=== PATIENT | female | born 1940 | race Caucasian/White ===

== ENCOUNTER 2019-06-01 14:49 | Outpatient (CLI) | payer MEDICARE, SELFPAY ==
--- NOTE | 2019-06-01 14:53 | MM_ITS ---
WS: [id number] BILATERAL SCREENING DIGITAL MAMMOGRAM WITH CAD HISTORY: SCREENING COMPARISON: 03/14/2018, 08/21/2016 and 08/18/2013 Bilateral CC and MLO views submitted. Computer aided detection analyzed. Breast composition: There are scattered areas of fibroglandular density. No suspicious masses, microc alcifications or architectural distortion. Vascular calcifications and scattered benign calcification s. Parenchymal pattern is stable over multiple years. MM/[place] [id number] IMPRESSION: BI-RADS: 2-Benign FOLLOW UP: 1 Year Follow-up
== END 2019-06-01 14:50 | disposition home or self-care (01) ==
LOC: RADSHAW 14:49
PROVIDERS: Family Provider Family Medicine; PCP Family Medicine; Visit Provider Family Medicine
DX: Z12.31 Encounter for screening mammogram for malignant neoplasm of breast (principal)
CPT/HCPCS: 77067

== ENCOUNTER 2020-01-31 21:47 | Inpatient (IN) | payer MEDICARE, SELFPAY ==
[2020-01-31 22:05] VITALS: BP 123/74; PULSE 97; RESP 16; TEMP 36.3; O2SAT 99; BMI 24.0
[2020-01-31 22:39] VITALS: BP 139/71; PULSE 84; RESP 18; O2SAT 98
--- NOTE | 2020-01-31 22:39 | CTR_ITS ---
PROCEDURE INFORMATION: Exam: CT Abdomen And Pelvis Without Contrast Exam date and time: 01/31/2020 11:15 PM Age: 79 years old Clinical indication: Nausea; Abdominal pain; Generalized; Prior surgery; Surgery date: 6+ months; Surgery type: Hyst, gb, appy, bowel resection; Patient HX: C/O abd pain w n/v and fever TECHNIQUE: Imaging protocol: Computed tomography of the abdomen and pelvis without contrast. Radiation optimization: All CT scans at this facility use at least one of these dose optimization techniques: automated exposure control; mA and/or kV adjustment per patient size (includes targeted exams where dose is matched to clinical indication); or iterative reconstruction. COMPARISON: US Renal Kidney Structu* [id number] 12/04/2016 1:19 PM RADIATION DOSE METRICS: Total DLP (mGy-cm): 433.71 FINDINGS: Liver: Calcified hepatic granulomatous change. Fatty lumbar hernia on the right. Midline ventral hernia with wide neck. Gallbladder and bile ducts: Cholecystectomy. Pancreas: Normal. No ductal dilation. Spleen: Calcified splenic granulomatous change noted. Adrenals: Normal. No mass. Kidneys and ureters: Normal. No hydronephrosis. Stomach and bowel: Small bowel is dilated to the level of anastomosis with colon at right mid abdomen. There is a question of in thickening of the wall of the distal most portions of small bowel near the anastomosis site. Appendix: No evidence of appendicitis. Intraperitoneal space: Unremarkable. No free air. No significant fluid collection. Vasculature: Vascular calcifications are noted. No abdominal aortic aneurysm. Lymph nodes: Unremarkable. No enlarged lymph nodes. Urinary bladder: Unremarkable as visualized. Reproductive: Unremarkable as visualized. Bones/joints: No acute fracture. Soft tissues: See Liver finding. CT/CT abdomen pelvis con [id number] IMPRESSION: Small-bowel obstruction . Question wall thickening at distal-most portions of small bowel may relate to passive congestion or enteritis. Radiation Dose CTDIVOL = (mGy): DLP = 433.71 (mGy-cm)
[2020-01-31] MEDS: fentaNYL 50 mcg/mL INJ 2mL IVP (23:13)
[2020-01-31] MEDS: ondansetron 2 mg/ML SDV 2 mL 4 MG IVP (23:14)
[2020-01-31] MEDS: sodium chloride 0.9% 1,000 ML 999 ML IV (23:15)
[2020-01-31 23:18] LABS: Basophils # 0.1 10^3/uL (0.0-0.1); Basophils % 0.5 %; Eosinophils % 0.2 %; Hematocrit 41.1 % (37.0-47.0); Hemoglobin 13.1 g/dL (11.5-15.3); Lymphocytes % 9.4 %; Mean Corpuscular HGB Conc 31.9 g/dL (30.0-36.0); Mean Corpuscular Hemoglobin 28.5 pg (28.0-34.0); Mean Corpuscular Volume 89.5 fL (81-99); Mean Platelet Volume 8.9 fL (7.4-10.4); Monocytes # 0.7 10^3/uL (0.2-0.9); Monocytes % 6.9 %; Neutrophils # 8.61 10^3/uL (1.8-7.7); Neutrophils % 82.7 %; Nucleated Red Blood Cells % 0 %; Platelet Count 287 10^3/cmm (130-400); Red Blood Count 4.59 10^6/uL (4.1-5.3); Red Cell Distribution Width 14.5 % (12.1-15.1); White Blood Count 10.4 10^3/uL (4.0-10.0)
[2020-01-31 23:37] LABS: Lactate (Lactic Acid level) 1.6 mmol/L (0.5-2.2)
[2020-01-31 23:38] LABS: Alanine Aminotransferase 20 U/L (0-33); Albumin Level 4.4 g/dL (3.5-5.2); Alkaline Phosphatase 78 IU/L (35-105); Blood Urea Nitrogen 18 mg/dL (8-23); C Reactive Protein 10.9 mg/L (0.0-4.9); Calcium 9.2 mg/dL (8.5-10.5); Carbon Dioxide 20 mmol/L (22-29); Chloride 102 mmol/L (98-107); Globulin 3.7 g/dL (1.3-4.6); Glucose 136 mg/dL (65-115); Lipase 23 U/L (13-60); Osmolality Calculated 286 mOsm/kg (285-295); Sodium 136 mmol/L (136-145); Total Bilirubin 0.7 mg/dL (0.15-1.2); Total Protein 8.1 g/dL (6.6-8.7)
[2020-01-31 23:39] VITALS: BP 130/72; PULSE 98; RESP 18; O2SAT 99
--- NOTE | 2020-01-31 23:44 | ED_ITS ---
HPI - Abdominal Pain General: Chief Complaint: Abdominal Pain Stated Complaint: fever/vomiting Time Seen by Provider: 01/31/20 22:23 History of Present Illness: HPI narrative: 79-year-old female presenting with anterior abdominal pain/pelvic pain this evening. He is vomited several times in the past 24 hours. She is not had any blood in the stool or vomitus. No real increased diarrhea. She has a history of Crohn's disease, and is status post hemicolectomy. No fever. MD elicited complaint: abdominal pain Pertinent past history: other Onset (ago): hour(s) Pain Consistency: constant Location: Suprapubic Severity: moderate Quality: stabbing and aching Migration to: no migration Exacerbating factors: movement Relieving factors: nothing Associated Symptoms: Reports GI cramping and vomiting; Denies chills, diarrhea, fever(s), hematochezia, hematuria and hematemesis Review of Systems Const: Denies: fever(s) or chills Eyes: Denies: change in vision or blurry vision ENMT: Denies: swelling of lips/tongue, bleeding gums, epistaxis or sinus pain Card: Denies: chest pain, palpitations, irregular heart rhythm or edema Resp: Denies: dyspnea, productive cough, non-productive cough or wheezing GI: Reports: vomiting and GI cramping; Denies: hematemesis, diarrhea or hematochezia : Denies: hematuria Musc: Denies: back pain or joint warmth Skin/Breast: Denies: rash or pruritus Neuro: Denies: headache(s), dizziness or vertigo Psych: Denies: anxiety PFSH ED PFSH: Medical History Colostomy present Crohn's disease Degenerative arthritis Depression Hypothyroidism Inflammatory bowel disease Injury of superior mesenteric vein Status post repair during cecum ectomy and ileostomy placement with transverse mucous fistula Perforation of cecum Pseudomembranous colitis S/P ORIF (open reduction internal fixation) fracture Left arm fracture Thrombocytosis Surgical History H/O exploratory laparotomy H/O right hemicolectomy Right hemicolectomy with ileostomy distal colon mucous fistula H/O: hysterectomy History of appendectomy History of bowel resection Family History Other CAD (coronary artery disease) Stroke Social History Smoking and tobacco status: former smoker Quit status (tobacco): has quit using tobacco Former quit date comment: Quit 1999 Alcohol intake: never Substance/Drug Use: never Household members: spouse Housing: House Current occupational status: retired 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 Physical Exam Const: GENERAL APPEARANCE: well developed ORIENTATION/CONSCIOUSNESS: Yes oriented to person, Yes oriented to place and Yes oriented to time HENMT: COMMON NORMALS: normocephalic, external ears normal and Normal external nose present HEAD & SCALP: normocephalic FACE & SINUS: normal facial exam NOSE: Normal external nose present and No nasal discharge present EXTERNAL EAR: Yes external ears normal Eye: COMMON NORMALS: Equal, round and reactive pupils present, EOMs intact bilaterally and conjunctivae normal EYELID: eyelids normal CONJUNCTIVA: Yes conjunctivae normal PUPIL: Yes Equal, round and reactive pupils present Neck/C-Spine: GENERAL: No tracheal deviation Chest: COMMONS NORMALS: normal inspection of the chest CHEST: No tenderness Resp: COMMON NORMALS: clear to auscultation bilaterally EFFORT & INSPECTION: No tachypneic, No respiratory distress, No retractions, No uses accessory muscles and No tracheal deviation AUSCULTATION: clear to auscultation bilaterally, no rhonchi, no wheezes and lung sounds not diminished Cardio: COMMON NORMALS: regular rate and regular rhythm RATE: regular rate RHYTHM: regular rhythm HEART SOUNDS: no murmurs PERIPHERAL PULSES: radial pulses present GI: INSPECTION: No abdominal distension AUSCULTATION: No Hyperactive bowel sounds present and No Hypoactive bowel sounds present PALPATION: Yes Tenderness to palpation present (GI) (Diffuse), No Guarding due to palpation present (GI) and No Rigid due to palpation PERCUSSION: no dullness to percussion and no tympanic to percussion Neuro: SENSORIUM/ORIENTATION: Yes oriented to person, Yes oriented to place and Yes oriented to time Psych: COMMON NORMALS: mental status grossly normal Skin: COMMON NORMALS: no rashes or lesions noted GENERAL SKIN EXAM: no rashes or lesions noted Course Consultations: Consultation #1: [email or web address] Vital Signs: Vital signs: Vital Signs Temperature 97.3 F L 01/31/20 22:05 Pulse Rate 104 H 02/01/20 01:54 Respiratory Rate 20 H 02/01/20 01:54 Blood Pressure 125/74 02/01/20 01:54 Pulse Oximetry 92 02/01/20 01:54 MDM - Abdominal Pain MDM Narrative: Medical decision making narrative: 79-year-old lady with a history of Crohn's disease. She has a small bowel obstruction by CT. Her white blood cell count is 10.4. Bicarbonate level is 20. Creatinine is 1.2. She has not vomited since here. Her pain is under better control. An NG tube is placed. Spoke with hospitalist, they agree to admit. Lab Data: Labs: Lab Results 01/31/20 01/31/20 01/31/20 Range/Units 22:45 22:45 23:08 WBC 10.4 H (4.0-10.0) 10^3/ uL RBC 4.59 (4.1-5.3) 10^6/u L Hgb 13.1 (11.5-15.3) g/dL Hct 41.1 (37.0-47.0) % MCV 89.5 (81-99) fL MCH 28.5 (28.0-34.0) pg MCHC 31.9 (30.0-36.0) g/dL RDW 14.5 (12.1-15.1) % Plt Count 287 (130-400) 10^3/c mm MPV 8.9 (7.4-10.4) fL Neut % (Auto) 82.7 % Lymph % (Auto) 9.4 % [place] % (Auto) 6.9 % Eos % (Auto) 0.2 % Baso % (Auto) 0.5 % Neut # (Auto) 8.61 H (1.8-7.7) 10^3/u L Lymph # (Auto) 1.0 (0.8-4.8) 10^3/u L [place] # (Auto) 0.7 (0.2-0.9) 10^3/u L Eos # (Auto) 0.0 (0.0-0.8) 10^3/u L Baso # (Auto) 0.1 (0.0-0.1) 10^3/u L Nucleated RBC % (a uto) 0 % Nucleated RBCs # 0.0 /100WBC Sodium 136 (136-145) mmol/L Potassium 5.1 (3.5-5.1) mmol/L Chloride 102 (98-107) mmol/L Carbon Dioxide 20 L (22-29) mmol/L Anion Gap 19.1 H (5-19) BUN 18 (8-23) mg/dL Creatinine 1.2 H (0.5-0.9) mg/dL GFR Calculation Not Reportable Glucose 136 H (65-115) mg/dL Calculated Osmolal ity 286 (285-295) mOsm/k g Lactate 1.6 (0.5-2.2) mmol/L Calcium 9.2 (8.5-10.5) mg/dL Total Bilirubin 0.7 (0.15-1.2) mg/dL AST 25 (0-32) U/L ALT 20 (0-33) U/L Alkaline Phosphata se 78 (35-105) IU/L C-Reactive Protein 10.9 H (0.0-4.9) mg/L Total Protein 8.1 (6.6-8.7) g/dL Albumin 4.4 (3.5-5.2) g/dL Globulin 3.7 (1.3-4.6) g/dL Lipase 23 (13-60) U/L Discharge Plan Discharge Patient Disposition: Admitted As Inpatient Admit Provider: Tariq Vazquez Clinical Impression: SBO (small bowel obstruction) Condition: Stable Coding Level of Care Code ED Biometrics Specialist for Chg Fwd Exam Comprehensive
[2020-01-31 23:48] LABS: Anion Gap 19.1 (5-19); Aspartate Amino Transferase 25 U/L (0-32); Potassium 5.1 mmol/L (3.5-5.1)
[2020-02-01] VITALS (12 sets, daily range): BP systolic 98–167; BP diastolic 56–83; PULSE 64–104; RESP 16–24; TEMP 36.5–36.9; O2SAT 92–100
--- NOTE | 2020-02-01 01:10 | P.HP_ITS ---
Providers/Chief Complaint Primary Care Provider: Dereje Bah MD Chief Complaint: fever/vomiting History of Present Illness Esha Manning is a 79 year old female who has history of right hemicolectomy status post cecal perforation due to Crohn's disease flareup 2009 currently on Remicade came in with intractable nausea vomiting. Patient symptoms started yesterday around 4 PM with bilious vomiting, she has been having bilious emesis almost every hour until she arrived in the hospital, she did not experience any fever, diarrhea, blood in stool, dysuria, chest pain or shortness of breath. She is due for her Remicade tomorrow. She gets Remicade infusions at her home. She never had any bowel obstruction in last 10 years, previous colonoscopy did not reveal any malignant changes. Diagnosis in the ER revealed sepsis, CT abdomen revealed small bowel obstruction, enteritis/ileitis I have started her on IV steroids, Zosyn and fluids, NG tube has been placed which drained 60 cc of bilious content in the ER on low intermittent suction. High CRP, WENDY Review of Systems 2 Const: Reports: chills, body aches and fatigue; Denies: fever(s) Eyes: Denies: change in vision ENMT: Denies: throat pain Card: Denies: chest pain Resp: Denies: dyspnea GI: Reports: abdominal pain, nausea and vomiting : Denies: flank pain Musc: Denies: joint redness Skin/Breast: Denies: rash Neuro: Denies: headache(s) Psych: Denies: anxiety Endo: Denies: polyuria Jovanni/Lymph: Denies: easy bruising All/Imm: Denies: urticaria Medications/Allergies Allergies Allergy/AdvReac Type Severity Reaction Status Date / Time hydrocodone Allergy Unknown Verified 01/31/20 22:09 morphine Allergy Unknown Verified 01/31/20 22:09 Sulfa (Sulfonamide Allergy Unknown Verified 01/31/20 22:09 Antibiotics) PFSH Acute PFSH: Medical History Colostomy present Crohn's disease Degenerative arthritis Depression Hypothyroidism Inflammatory bowel disease Injury of superior mesenteric vein Status post repair during cecum ectomy and ileostomy placement with transverse mucous fistula Perforation of cecum Pseudomembranous colitis S/P ORIF (open reduction internal fixation) fracture Left arm fracture Thrombocytosis Surgical History H/O exploratory laparotomy H/O right hemicolectomy Right hemicolectomy with ileostomy distal colon mucous fistula H/O: hysterectomy History of appendectomy History of bowel resection Family History Other CAD (coronary artery disease) Stroke Social History Smoking and tobacco status: former smoker Quit status (tobacco): has quit using tobacco Former quit date comment: Quit 1999 Alcohol intake: never Substance/Drug Use: never Household members: spouse Housing: House Current occupational status: retired 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 Vitals/I&O/Wt Last Vital Signs Temp 97.3 F L 01/31/20 22:05 Pulse 84 01/31/20 22:39 Resp 18 01/31/20 22:39 BP 139/71 01/31/20 22:39 Pulse Ox 98 01/31/20 22:39 Weight last 48 hrs Weight 63.503 kg Physical Exam Narrative: EXAM NARRATIVE: elderly female Currently in distress because of abdominal pain NG tube has been placed which is draining bilious content 60 cc in the jar EOMI, PERRLA No neurological deficit Abdomen soft, bowel sounds hyperactive, nontender, no signs of peritonitis, no rigidity Lower extremity no edema gangrene ulcer S1, S2 tachycardia No active respiratory distress Distress due to pain Awake alert oriented x3, GCS 15 Data : 01/31/20 22:45 01/31/20 22:45 A&P Assessment and plan (1) SBO (small bowel obstruction): Status: Acute (2) Sepsis: Status: Acute (3) Exacerbation of Crohn's disease: Status: Acute Additional A&P Information Acute flare of Crohn's disease Sepsis criteria met with tachycardia, tachypnea, leukocytosis, high CRP, CT abdomen revealed enteritis Her next Remicade dose is due tomorrow Considering high CRP and small bowel obstruction, she might need higher dosage of Remicade for remission of Crohn's disease, kindly follow-up with her bureau chief if we need to scale up her therapy I would start IV steroids along Zosyn considering history of perforation of cecum with Crohn disease flareup in 2009 Patient is denying any history of fistula or malignancies N.p.o., NG to low intermittent suction We will consult general surgery in the morning in case she fails conservative management Hypothyroidism: Holding levothyroxine for now WENDY secondary to dehydration Dehydration secondary to emesis Anticipating improvement with fluid resuscitation, baseline creatinine seems to be normal Patient is denying dysuria, no history of fistula Full code DVT prophylaxis: Would avoid anticoagulant in case she would require surgical intervention N.p.o. Attestations Medical Necessity Statement*: Anticipating stay in the hospital cross more than 2 midnights continued management for acute flare of Crohn's disease with SBO and enteritis Time Spent in Patient Care: (>than 50% of time spent in counselling and/or direct pt care on unit) . 50mins Coding Level of Care Code Acute Managed Care Manager for Chg Fwd Diagnoses SBO (small bowel obstruction) K56.609 Sepsis A41.9 Exacerbation of Crohn's disease K50.90
[2020-02-01] MEDS: cetacaine Spray 5 gm Can 1 SPRAY TOPICAL (01:35)
--- NOTE | 2020-02-01 01:45 | PC.NURSE ---
18 fr NG tube placed Lt nare placement checked per auscaltation secured with venagard-to Low intermittent suction
--- NOTE | 2020-02-01 01:58 | XR_ITS ---
WS: [id number] PORTABLE CHEST HISTORY: NG placement COMPARISON: 11/21/2015 Interval insertion of a nasogastric tube with tip extending below the GE junction. Mild pulmonary hyperexpansion. No pneumonia. No pleural effusion or pneumothorax. Cardiac size: Normal. Mediastinum/Aorta: Mild atherosclerosis aorta. Prior ORIF proximal LEFT humerus. Osteopenia. XR/XR chest 1V portable [id number] IMPRESSION: 1. Satisfactory placement of a nasogastric tube. 2. No pneumonia.
[2020-02-01] MEDS: HYDROmorphone 1 mg/mL INJ 1 mL 0.5 MG IVP ×3 (02:42→17:32)
[2020-02-01] MEDS: dextrose 5%-sod chloride 0.45% 1,000 ML 75 ML IV ×2 (04:34→16:52)
[2020-02-01] MEDS: piperacillin-tazobactam 3.375 GM in sodium chloride 0.9% (plus) 50 ML IV (04:35)
[2020-02-01 05:42] LABS: Basophils % 0.4 %; Hemoglobin 12.2 g/dL (11.5-15.3); Lymphocytes % 9.9 %; Mean Corpuscular HGB Conc 31.3 g/dL (30.0-36.0); Mean Corpuscular Hemoglobin 28.8 pg (28.0-34.0); Mean Corpuscular Volume 92.2 fL (81-99); Monocytes # 0.7 10^3/uL (0.2-0.9); Monocytes % 6.7 %; Neutrophils % 82.6 %; Nucleated Red Blood Cells % 0 %; Platelet Count 252 10^3/cmm (130-400); Red Blood Count 4.23 10^6/uL (4.1-5.3); Red Cell Distribution Width 14.6 % (12.1-15.1); White Blood Count 9.9 10^3/uL (4.0-10.0)
[2020-02-01 05:58] LABS: Alanine Aminotransferase 16 U/L (0-33); Albumin Level 3.7 g/dL (3.5-5.2); Alkaline Phosphatase 71 IU/L (35-105); Anion Gap 18.2 (5-19); Aspartate Amino Transferase 20 U/L (0-32); Blood Urea Nitrogen 18 mg/dL (8-23); Calcium 8.7 mg/dL (8.5-10.5); Carbon Dioxide 18 mmol/L (22-29); Chloride 105 mmol/L (98-107); Globulin 3.7 g/dL (1.3-4.6); Glucose 154 mg/dL (65-115); Osmolality Calculated 289 mOsm/kg (285-295); Potassium 4.2 mmol/L (3.5-5.1); Sodium 137 mmol/L (136-145); Total Bilirubin 0.7 mg/dL (0.15-1.2); Total Protein 7.4 g/dL (6.6-8.7)
--- NOTE | 2020-02-01 08:03 | P.CONIM_ITS ---
Providers/Reason For Consult Consulting Physican/Specialty*: Saw Ennis MD Reason for Consult*: Bowel obstruction associated with exacerbation of Crohn's disease Attending Physician: Lori Reddy MD Primary Care Provider: Dereje Bah MD History of Present Illness History of Present Illness Chief Complaint: Vomiting History of present illness: This is a pleasant 79 years old female patient with well-known history of Crohn's disease, undergone open right hemicolectomy before 10 years ago and she has been on steroids before. Patient was started on Remicade about 1 year per her part time receptionist in [facility]. She has been receiving it every 5 to 7 weeks and she is due for her dose today. Patient reports that she started to having vomiting yesterday associated with colicky abdominal pain diffuse in nature without being referred.Associated with chills but no reported fevers and she did have a bout of nonbloody loose stool and passing gas yesterday evening. Patient was admitted to the hospitalist service and further evaluation was done including blood work and a CT scan patient had an NG tube placed for decompression and it seems overall patient is feeling better as of now and she denies any abdominal pain on morning rounds. General surgery was consulted for further evaluation. CT scan of the abdomen pelvis showed: FINDINGS: Liver: Calcified hepatic granulomatous change. Fatty lumbar hernia on the right. Midline ventral hernia with wide neck. Gallbladder and bile ducts: Cholecystectomy. Pancreas: Normal. No ductal dilation. Spleen: Calcified splenic granulomatous change noted. Adrenals: Normal. No mass. Kidneys and ureters: Normal. No hydronephrosis. Stomach and bowel: Small bowel is dilated to the level of anastomosis with colon at right mid abdomen. There is a question of in thickening of the wall of the distal most portions of small bowel near the anastomosis site. Appendix: No evidence of appendicitis. Intraperitoneal space: Unremarkable. No free air. No significant fluid collection. Vasculature: Vascular calcifications are noted. No abdominal aortic aneurysm. Lymph nodes: Unremarkable. No enlarged lymph nodes. Urinary bladder: Unremarkable as visualized. Reproductive: Unremarkable as visualized. Bones/joints: No acute fracture. Soft tissues: See Liver finding. CT/CT abdomen pelvis wo con [id number] IMPRESSION: Small-bowel obstruction . Question wall thickening at distal-most portions of small bowel may relate to passive congestion or enteritis. Review of Systems General: Reports: 10 or more systems reviewed and unremarkable except in HPI and below Meds/Allergies Home Medications and Allergies Home Medications Medication Instructions Recorded Confirmed Last Taken Type colestipol 1 g PO BID 02/01/20 02/01/20 1 Day Ago History ~01/31/20 famotidine 20 mg PO BID 02/01/20 02/01/20 1 Day Ago History ~01/31/20 gabapentin 100 mg PO BID 02/01/20 02/01/20 1 Day Ago History ~01/31/20 levothyroxine [Synthroid] 150 mcg PO DAILY 02/01/20 02/01/20 1 Day Ago History ~01/31/20 metoprolol succinate 25 mg PO BID 02/01/20 02/01/20 1 Day Ago History ~01/31/20 Allergies Allergy/AdvReac Type Severity Reaction Status Date / Time hydrocodone Allergy Unknown Verified 02/01/20 08:14 morphine Allergy Unknown Verified 02/01/20 08:14 Sulfa (Sulfonamide Allergy Unknown Verified 02/01/20 08:14 Antibiotics) Current Medications Current Medications Generic Name Dose Route Start Last Admin Trade Name Freq PRN Reason Stop Dose Admin Dextrose/Sodium Chloride 1,000 mls @ 75 mls/hr 02/01/20 03:15 02/01/20 04:34 Dextrose 5%-Sod Chloride 0.45% IV 75 mls/hr .[id number] MALIA Administration Methylprednisolone Sodium Succinate 40 mg 02/01/20 03:15 02/01/20 04:35 Solu-Medrol IVP 40 mg Q12H MALIA Administration PFSH Acute PFSH: Medical History Colostomy present Crohn's disease Degenerative arthritis Depression Hypothyroidism Inflammatory bowel disease Injury of superior mesenteric vein Status post repair during cecum ectomy and ileostomy placement with transverse mucous fistula Perforation of cecum Pseudomembranous colitis S/P ORIF (open reduction internal fixation) fracture Left arm fracture Thrombocytosis Surgical History H/O exploratory laparotomy H/O right hemicolectomy Right hemicolectomy with ileostomy distal colon mucous fistula H/O: hysterectomy History of appendectomy History of bowel resection Family History Other CAD (coronary artery disease) Stroke Social History Smoking and tobacco status: former smoker Quit status (tobacco): has quit using tobacco Former quit date comment: Quit 1999 Alcohol intake: never Substance/Drug Use: never Household members: spouse Housing: House Current occupational status: retired 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 Vitals/I&O/Wt Last Vital Signs Temp 98.3 F 02/01/20 07:42 Pulse 64 02/01/20 07:42 Resp 20 H 02/01/20 07:42 BP 130/76 02/01/20 07:42 Pulse Ox 95 02/01/20 07:42 01/31/20 02/01/20 02/01/20 22:59 06:59 14:59 Output Total 325 / 325 Balance -325 / -325 Weight last 48 hrs Weight 140 lb Physical Exam Narrative: EXAM NARRATIVE: Patient is conscious alert oriented X3 BMI 24 Head and neck examination PERRLA no masses no cervical lymphadenopathy no jaundice NG in place with gastric /bilious content Cardiac examination audible S1-S2 no murmurs no gallops no arrhythmias Chest is clear bilateral,abscence of Rhonchi or wheezes,no surgical emphysema Abdomen nontender nondistended soft no organomegaly guarding or rigidity/no signs of peritonitis Midline scar A&P Assessment and plan (1) SBO (small bowel obstruction): After thorough history physical examination and reviewing the chart and images with my personal interpretation of the CT scan images likely the patient have some sort of narrowing towards the ileocolic anastomosis yet it is not that distinct likely more of inflammatory process being active But no actual transition point is appreciated on the scan. Also on the CT scan the patient does have loaded colon with stools likely there is an underlying element of constipation. Continue NG to low intermittent wall suction Resume Remicade, advise to consult with patient's medical GI provider to keep him in the loop and coordinate care. I Would recommend ciprofloxacin and Flagyl instead of Zosyn No surgical intervention is required at this point, continue conservative measures. Repeated physical examination Assurance and education All questions have been answered and all concerns have been addressed to patient's satisfaction. Status: Acute Consult Attestations Medical Necessity Statement: Patient will require inpatient hospitalization with NG tube to low intermittent wall suction and repeated physical examination. Till patient restored soft bowel function Time Spent in Patient Care: (>than 50% of time spent in counselling and/or direct pt care on unit) . Coding Level of Care Code Acute Joinery Machinist for Chg Fwd Diagnoses SBO (small bowel obstruction) K56.609
[2020-02-01] MEDS: metroNIDAZOLE IV 500 MG/100 ML PREMIX 100 MG IV ×2 (08:38→16:39)
[2020-02-01] MEDS: ciprofloxacin 400 MG/200 ML PREMIX 200 MG IV ×2 (10:31→21:38)
[2020-02-01] MEDS: ondansetron 2 mg/ML SDV 2 mL 4 MG IVP (12:01)
--- NOTE | 2020-02-01 17:44 | PM.PN ---
Subjective Subjective: Interval history: Overnight labs and H& P reveiwed. Continues with NGT in place, no acute interim events Medications: Reviewed: Yes Vitals/I&O/Wt Last Vital Signs Temp 98.2 F 02/01/20 14:53 Pulse 81 02/01/20 14:53 Resp 20 H 02/01/20 14:53 BP 132/64 02/01/20 14:53 Pulse Ox 100 02/01/20 14:53 02/01/20 02/01/20 02/01/20 06:59 14:59 22:59 Intake Total 100 / 100 922.5 / 1022.5 Output Total 325 / 325 Balance -325 / -325 100 / 100 922.5 / 1022.5 Weight last 48 hrs Weight 63.503 kg Data : 02/01/20 05:01 02/01/20 05:01 A&P Assessment and plan (1) SBO (small bowel obstruction): Status: Acute (2) Sepsis: Status: Acute (3) Exacerbation of Crohn's disease: Status: Acute Additional A&P Information Patient has a h/o Crohn's disease Sepsis criteria met with tachycardia, tachypnea, leukocytosis, high CRP, CT abdomen revealed enteritis Her next Remicade dose was due today, will discuss with her GI physicians in [place] Continue IV steroids along Zosyn for now N.p.o., NG to low intermittent suction Appreciate gen/surg recommendations WENDY secondary to dehydration Dehydration secondary to emesis Anticipating improvement with fluid resuscitation, baseline creatinine seems to be normal Patient is denying dysuria, no history of fistula Full code DVT prophylaxis: Would avoid anticoagulant in case she would require surgical intervention N.p.o. Attestations Medical Necessity Statement*: SBO, awaiting improvement in bowel function Coding Level of Care Code Acute Heater Operator Helper for [facility] Fwd Diagnoses SBO (small bowel obstruction) K56.609 Sepsis A41.9 Exacerbation of Crohn's disease K50.90
[2020-02-02] MEDS: metroNIDAZOLE IV 500 MG/100 ML PREMIX 100 MG IV ×4 (00:03→23:31)
[2020-02-02 04:00] VITALS: BP 147/76; PULSE 81; RESP 18; TEMP 36.8; O2SAT 95
[2020-02-02 06:04] LABS: Basophils % 0.1 %; Hematocrit 36.9 % (37.0-47.0); Lymphocytes # 1.3 10^3/uL (0.8-4.8); Mean Corpuscular HGB Conc 32.5 g/dL (30.0-36.0); Mean Corpuscular Hemoglobin 28.9 pg (28.0-34.0); Mean Corpuscular Volume 88.9 fL (81-99); Mean Platelet Volume 9.2 fL (7.4-10.4); Monocytes # 0.6 10^3/uL (0.2-0.9); Monocytes % 7.9 %; Neutrophils # 5.62 10^3/uL (1.8-7.7); Neutrophils % 74.5 %; Nucleated Red Blood Cells % 0 %; Platelet Count 283 10^3/cmm (130-400); Red Blood Count 4.15 10^6/uL (4.1-5.3); Red Cell Distribution Width 14.4 % (12.1-15.1); White Blood Count 7.6 10^3/uL (4.0-10.0)
--- NOTE | 2020-02-02 06:16 | P.PN_ITS ---
Subjective Subjective: Interval history: Patient overall feels better and start to pass a lot of gas. NG output 300 mL over past 12 hours gastric content Overall patient denies abdominal pain Vitals/I&O/Wt Last Vital Signs Temp 98.3 F 02/02/20 04:00 Pulse 81 02/02/20 04:00 Resp 18 02/02/20 04:00 BP 147/76 02/02/20 04:00 Pulse Ox 95 02/02/20 04:00 02/01/20 02/01/20 02/02/20 14:59 22:59 06:59 Intake Total 300 / 300 1222.5 / 1522.5 100 / 1622.5 Output Total 100 / 100 350 / 450 Balance 300 / 300 1122.5 / 1422.5 -250 / 1172.5 Weight last 48 hrs Weight 140 lb Physical Exam Narrative: EXAM NARRATIVE: Patient is conscious alert oriented X3 BMI 24 Head and neck examination PERRLA no masses no cervical lymphadenopathy no jaundice NG in place gastric content Abdomen nontender nondistended soft no organomegaly guarding or rigidity/no signs of peritonitis Data : 02/03/20 04:54 02/03/20 04:54 A&P Assessment and plan (1) SBO (small bowel obstruction): Will administer glycerin suppositories and once patient have a bowel movement we will plan to clamp NG tube for 2 hours. And then will check r esiduals if less than 200 mL will DC NG and start the patient on clear liquid diet. Patient is responding to conservative measures. We will continue coordinating care with Repeated physical examination Assurance and education All questions have been answered and all concerns have been addressed to patient's satisfaction. Status: Acute Attestations Medical Necessity Statement*: Continue inpatient admission due to bowel obstruction Time Spent in Patient Care: (>than 50% of time spent in counselling and/or di rect pt care on unit) . Coding Level of Care Code Acute Molecular Technologist for [facility] Fwd Diagnoses SBO (small bowel obstruction) K56.609
[2020-02-02] MEDS: dextrose 5%-sod chloride 0.45% 1,000 ML 75 ML IV ×2 (06:22→21:10)
[2020-02-02] MEDS: glycerin adult supp 2 EACH PR (06:34)
[2020-02-02 06:39] LABS: Alanine Aminotransferase 17 U/L (0-33); Albumin Level 3.7 g/dL (3.5-5.2); Alkaline Phosphatase 68 IU/L (35-105); Anion Gap 15.9 (5-19); Aspartate Amino Transferase 18 U/L (0-32); Blood Urea Nitrogen 15 mg/dL (8-23); Calcium 8.3 mg/dL (8.5-10.5); Carbon Dioxide 24 mmol/L (22-29); Chloride 103 mmol/L (98-107); Globulin 3.5 g/dL (1.3-4.6); Glucose 151 mg/dL (65-115); Osmolality Calculated 292 mOsm/kg (285-295); Potassium 3.9 mmol/L (3.5-5.1); Sodium 139 mmol/L (136-145); Total Bilirubin 0.6 mg/dL (0.15-1.2); Total Protein 7.2 g/dL (6.6-8.7)
[2020-02-02 06:41] LABS: Creatinine Clr Calc Pharmacy 40.5527
[2020-02-02 07:49] VITALS: BP 162/80; PULSE 70; RESP 18; TEMP 36.8; O2SAT 94
[2020-02-02] MEDS: ciprofloxacin 400 MG/200 ML PREMIX 200 MG IV ×2 (10:18→21:09)
[2020-02-02] MEDS: ondansetron 2 mg/ML SDV 2 mL 4 MG IVP ×2 (11:21→17:07)
[2020-02-02 11:24] VITALS: BP 160/71; PULSE 74; RESP 16; TEMP 36.7; O2SAT 94
--- NOTE | 2020-02-02 14:22 | PC.NURSE ---
DR ORDER KRIDER 40MEQ, IT WAS HUNG AND PT THEN REQUESTED FOR IT TO BE DISCONTINUED, RN DID PT REQUESTED AND NOTIFIED . ORDERED LIDOCAINE AND PT STILL REFUSED KRIDER AFTER LIDOCAINE, DR NOTIFIED AND AWARE
[2020-02-02 15:20] VITALS: BP 170/68; PULSE 72; RESP 18; TEMP 36.9; O2SAT 95
--- NOTE | 2020-02-02 18:02 | PM.PN ---
Subjective Subjective: Interval history: clamping trial today for NGT, no acute overnight events Medications: Reviewed: Yes Vitals/I&O/Wt Last Vital Signs Temp 98.4 F 02/02/20 15:20 Pulse 72 02/02/20 15:20 Resp 18 02/02/20 15:20 BP 170/68 02/02/20 15:20 Pulse Ox 95 02/02/20 15:20 02/02/20 02/02/20 02/02/20 06:59 14:59 22:59 Intake Total 1100 / 2622.5 300 / 300 Output Total 350 / 450 300 / 300 Balance 750 / 2172.5 300 / 300 -300 / 0 Weight last 48 hrs Weight 63.503 kg Physical Exam Narrative: EXAM NARRATIVE: GEN: Awake, alert and oriented, no acute distress HEENT: NGT in place, clamped today CVS: S1S2 N RS: CTA B/L Abd: Soft, nt/nd , bs+ MANAGER FREELANCE: no focal neuro deficits Data : 02/02/20 05:12 02/02/20 05:12 A&P Assessment and plan (1) SBO (small bowel obstruction): Status: Acute (2) Sepsis: Status: Acute (3) Exacerbation of Crohn's disease: Status: Acute Additional A&P Information SBO Patient has a h/o Crohn's disease Sepsis criteria met with tachycardia, tachypnea, leukocytosis, high CRP, CT abdomen revealed enteritis Missed Remicade dose yesterday, was scheduled for outpatient Remicade with GI Continue IV steroid, reduce dose to q24h, will aim to discontinue abx if remains stable NGT clamped today resume home medications incl metoprolol, gabapentin Appreciate gen/surg recommendations Had BM today and passing flatus WENDY secondary to dehydration Dehydration secondary to emesis Anticipating improvement with fluid resuscitation, baseline creatinine seems to be normal Patient is denying dysuria, no history of fistula Full code DVT prophylaxis: start lovenox Attestations Medical Necessity Statement*: SBO, NGT clamped Coding Level of Care Code Acute Precision Aircraft Structure Assembler for [facility] Fw Diagnoses SBO (small bowel obstruction) K56.609 Sepsis A41.9 Exacerbation of Crohn's disease K50.90
[2020-02-02 20:00] VITALS: BP 154/84; PULSE 69; RESP 20; TEMP 37.1; O2SAT 92
[2020-02-02] MEDS: enoxaparin 40 mg/0.4 mL Syringe SUBCUT (23:42)
[2020-02-03] VITALS (7 sets, daily range): BP systolic 126–158; BP diastolic 71–83; PULSE 64–87; RESP 16–18; TEMP 36.3–37.1; O2SAT 91–97
[2020-02-03 05:11] LABS: Basophils % 0.1 %; Hematocrit 37.3 % (37.0-47.0); Hemoglobin 11.8 g/dL (11.5-15.3); Lymphocytes # 0.7 10^3/uL (0.8-4.8); Lymphocytes % 8.5 %; Mean Corpuscular HGB Conc 31.6 g/dL (30.0-36.0); Mean Corpuscular Hemoglobin 28.7 pg (28.0-34.0); Mean Corpuscular Volume 90.8 fL (81-99); Mean Platelet Volume 9.2 fL (7.4-10.4); Monocytes # 0.3 10^3/uL (0.2-0.9); Monocytes % 3.1 %; Neutrophils # 6.97 10^3/uL (1.8-7.7); Neutrophils % 87.1 %; Nucleated Red Blood Cells % 0 %; Platelet Count 259 10^3/cmm (130-400); Red Blood Count 4.11 10^6/uL (4.1-5.3); Red Cell Distribution Width 14.1 % (12.1-15.1)
[2020-02-03 05:33] LABS: Alanine Aminotransferase 16 U/L (0-33); Albumin Level 3.5 g/dL (3.5-5.2); Alkaline Phosphatase 58 IU/L (35-105); Chloride 98 mmol/L (98-107); Potassium 3.4 mmol/L (3.5-5.1); Sodium 140 mmol/L (136-145)
[2020-02-03 05:49] LABS: Anion Gap 15.4 (5-19); Aspartate Amino Transferase 20 U/L (0-32); Blood Urea Nitrogen 16 mg/dL (8-23); Calcium 8.1 mg/dL (8.5-10.5); Carbon Dioxide 30 mmol/L (22-29); Globulin 3.3 g/dL (1.3-4.6); Glucose 301 mg/dL (65-115); Osmolality Calculated 302 mOsm/kg (285-295); Total Bilirubin 0.5 mg/dL (0.15-1.2); Total Protein 6.8 g/dL (6.6-8.7)
--- NOTE | 2020-02-03 06:16 | XRR_ITS ---
PROCEDURE INFORMATION: Exam: XR Abdomen, 2 Views Exam date and time: 02/03/2020 6:36 AM Age: 79 years old Clinical indication: Condition or disease; Intestinal condition; Obstruction; Prior surgery; Surgery type: Bowel resection; Patient HX: Ng tube in place, follow up; Additional info: Erect and supine position TECHNIQUE: Imaging protocol: XR of the abdomen. Views: 2 Views. COMPARISON: CT abdomen pelvis con [id number] 01/31/2020 11:19 PM FINDINGS: Tubes, catheters and devices: Termination of feeding tube in the region of the proximal duodenum. Gastrointestinal tract: Combined small bowel and colonic dilatation, with scattered air-fluid levels and prominent stool. Note small-bowel obstruction was reported on recent abdominal/pelvic CT report dated 01/31/20. Intraperitoneal space: Surgical sutures in the right mid abdomen. Bones/joints: Degenerative change . XR/XR abdomen min 2V [id number] IMPRESSION: 1. Termination of feeding tube in the region of the proximal duodenum. 2. Combined small bowel and colonic dilatation, with scattered air-fluid levels and prominent stool.
--- NOTE | 2020-02-03 06:17 | P.PN_ITS ---
Subjective Subjective: Interval history: Patient had 2 bowel movements and continues to pass some gas yet she had about thousand mL since yesterday per NG after being the clamped due to nausea. Overall patient feels little bit better. Vitals/I&O/Wt Last Vital Signs Temp 98.2 F 02/03/20 04:00 Pulse 76 02/03/20 04:00 Resp 18 02/03/20 04:00 BP 153/71 02/03/20 04:00 Pulse Ox 92 02/03/20 04:00 02/02/20 02/02/20 02/03/20 14:59 22:59 06:59 Intake Total 300 / 300 1100 / 1400 0 / 1400 Output Total 1200 / 1200 Balance 300 / 300 -100 / 200 0 / 200 Physical Exam Narrative: EXAM NARRATIVE: Patient is conscious alert oriented X3 BMI 24 Head and neck examination PERRLA no masses no cervical lymphadenopathy no jaundice NG in place gastric content Abdomen nontender nondistended soft no organomegaly guarding or rigidity/no signs of peritonitis Data : 02/03/20 04:54 02/03/20 04:54 A&P Assessment and plan (1) SBO (small bowel obstruction): Continue NGT to Low intermittent wall suction KUB erect and supine We will plan to pull the NG 4 inches as likely explain the large amount of biliary aspirate Recommend to repeat glycerin suppositories Repeated physical examination Assurance and education All questions have been answered and all concerns have been addressed to patient's satisfaction. Status: Acute Attestations Medical Necessity Statement*: Ongoing hospitalization for concern of bowel obs truction till patient resume bowel activity and tolerates p.o. intake. Time Spent in Patient Care: (>than 50% of time spent in counselling and/or direct pt care on unit) . Coding Level of Care Code Acute Dental Treatment Coordinator for g Fwd Diagnoses SBO (small bowel obstruction) K56.609
[2020-02-03] MEDS: metroNIDAZOLE IV 500 MG/100 ML PREMIX 100 MG IV ×2 (08:42→15:05)
[2020-02-03] MEDS: levothyroxine 150 mcg Tablet PO (09:06)
[2020-02-03] MEDS: famotidine 20 mg Tablet PO ×2 (09:06→17:30)
[2020-02-03] MEDS: gabapentin 100 mg Capsule PO ×2 (09:06→17:29)
[2020-02-03] MEDS: metoprolol succinate ER (24 HR) 25 mg Tablet PO ×2 (09:06→17:29)
[2020-02-03] MEDS: ondansetron 2 mg/ML SDV 2 mL 4 MG IVP ×2 (09:15→15:05)
[2020-02-03] MEDS: dextrose 5%-sod chloride 0.45% 1,000 ML 50 ML IV (10:38)
[2020-02-03] MEDS: ciprofloxacin 400 MG/200 ML PREMIX 200 MG IV ×2 (10:39→20:50)
[2020-02-03] MEDS: glycerin adult supp 2 EACH PR (11:14)
--- NOTE | 2020-02-03 14:41 | PC.NURSE ---
Patient had 25 ml of residual from NG tube
--- NOTE | 2020-02-03 16:10 | PM.PN ---
Subjective Subjective: Interval history: Patient had a bowel movement today. NGT has been discontinued per surgical recommendations. Call placed to patient's GI in [place], however her physician is out of office and I am waiting for a call back. Medications: Reviewed: Yes Vitals/I&O/Wt Last Vital Signs Temp 98.2 F 02/03/20 15:23 Pulse 80 02/03/20 15:23 Resp 18 02/03/20 15:23 BP 145/83 02/03/20 15:23 Pulse Ox 92 02/03/20 15:23 02/03/20 02/03/20 02/03/20 06:59 14:59 22:59 Intake Total 100 / 1700 1050 / 1050 Output Total 850 / 2050 125 / 125 Balance -750 / -350 925 / 925 Physical Exam Narrative: EXAM NARRATIVE: GEN: Awake, alert and oriented, no acute distress CVS: S1S2 N RS: CTA B/L Abd: Soft, nt/nd , bs+ SAFE DEPOSIT BOX RENTAL CLERK: no focal neuro deficits Data : 02/03/20 04:54 02/03/20 04:54 A&P Assessment and plan (1) SBO (small bowel obstruction): Status: Acute (2) Sepsis: Status: Acute (3) Exacerbation of Crohn's disease: Status: Acute Additional A&P Information SBO Patient has a h/o Crohn's disease Sepsis criteria met with tachycardia, tachypnea, leukocytosis, high CRP, CT abdomen revealed enteritis Missed Remicade dose 2 days ago, was scheduled for outpatient Remicade with GI. Call placed to Dr. Michael Harrison's office in [place] to discuss patient's recent events, however he is out of office and I am awaiting callback. Continue IV steroid, reduce dose to q24h, will aim to discontinue abx if remains stable NGT removed today as patient is clinically improving resume home medications incl metoprolol, gabapentin Appreciate gen/surg recommendations WENDY secondary to dehydration, improving Dehydration secondary to emesis Full code DVT prophylaxis: lovenox Attestations Medical Necessity Statement*: Improving SBO, NGT removed today, will try advancing diet, has been started on clears today. Coding Level of Care Code Acute Parking Lot Supervisor for [facility] Fwd Diagnoses SBO (small bowel obstruction) K56.609 Sepsis A41.9 Exacerbation of Crohn's disease K50.90
[2020-02-03] MEDS: diphenhydrAMINE 50 mg Capsule 25 MG PO (20:51)
[2020-02-03] MEDS: enoxaparin 40 mg/0.4 mL Syringe SUBCUT (23:25)
[2020-02-04] VITALS: BP 174/74; PULSE 63; RESP 16; TEMP 37; O2SAT 93
[2020-02-04] MEDS: metroNIDAZOLE IV 500 MG/100 ML PREMIX 100 MG IV ×2 (00:29→08:25)
[2020-02-04 04:00] VITALS: BP 150/79; PULSE 61; RESP 18; TEMP 36.8; O2SAT 95
--- NOTE | 2020-02-04 06:21 | PM.PN ---
Subjective Subjective: Interval history: Patient feels better and continues to pass gas and having bowel movements. NG was discontinued by me yesterday. And patient is tolerating p.o. intake. Otherwise no acute events. KUB was done yesterday and per my interpretation there is no bowel obstruction and gas was appreciated through the whole entire colon and in the rectum. Vitals/I&O/Wt Last Vital Signs Temp 98.2 F 02/04/20 04:00 Pulse 61 02/04/20 04:00 Resp 18 02/04/20 04:00 BP 150/79 02/04/20 04:00 Pulse Ox 95 02/04/20 04:00 02/03/20 02/03/20 02/04/20 14:59 22:59 06:59 Intake Total 1250 / 1250 240 / 1490 Output Total 125 / 125 0 / 125 0 / 125 Balance 1125 / 1125 240 / 1365 0 / 1365 Physical Exam Narrative: EXAM NARRATIVE: Patient is conscious alert oriented X3 BMI 24 Head and neck examination PERRLA no masses no cervical lymphadenopathy no jaundice Abdomen nontender nondistended soft no organomegaly guarding or rigidity/no signs of peritonitis Data : 02/03/20 04:54 02/03/20 04:54 A&P Assessment and plan (1) SBO (small bowel obstruction): Small bowel obstruction resolved and patient is responding well to conservative measures. Will advance diet as tolerated Once patient tolerates that from surgical standpoint of view can be discharged home. Recommend highly for the patient to follow-up with her GI medical service at [place] to continue manage her Crohn's disease. Patient's education with regard to high-fiber diet and encouraged to be on bowel regimen. Assurance and education All questions have been answered and all concerns have been addressed to patient's satisfaction. Status: Resolved Attestations Medical Necessity Statement*: From surgical standpoint of view patient can be discharged home today. Time Spent in Patient Care: (>than 50% of time spent in counselling and/or direct pt care on unit). Coding Level of Care Code Acute Environmental Compliance Manager for g Fwd Diagnoses SBO (small bowel obstruction) K56.609
[2020-02-04 08:00] VITALS: BP 157/79; PULSE 65; RESP 18; TEMP 36.6; O2SAT 96
[2020-02-04] MEDS: levothyroxine 150 mcg Tablet PO (08:23)
[2020-02-04] MEDS: gabapentin 100 mg Capsule PO (08:23)
[2020-02-04] MEDS: metoprolol succinate ER (24 HR) 25 mg Tablet PO (08:23)
[2020-02-04] MEDS: dextrose 5%-sod chloride 0.45% 1,000 ML 50 ML IV (08:25)
[2020-02-04] MEDS: famotidine 20 mg Tablet PO (09:25)
[2020-02-04] MEDS: ciprofloxacin 400 MG/200 ML PREMIX 200 MG IV (10:47)
[2020-02-04 11:34] VITALS: BP 176/66; PULSE 60; RESP 18; TEMP 36.4; O2SAT 99
--- NOTE | 2020-02-04 14:27 | PM.DCS ---
Discharge Providers Date of Admission: 02/01/20 01:48 Date of Discharge: February 04, 2020 Attending Provider at Admission: Tariq Vazquez MD Attending Provider at Discharge: Lori Reddy MD Primary Care Provider: Dereje Bah MD Diagnoses at Discharge Discharge Diagnosis (1) SBO (small bowel obstruction): Status: Resolved (2) Exacerbation of Crohn's disease: Status: Acute (3) Enteritis: Status: Acute (4) Sepsis: Status: Acute Problem details: resolved Reason for Visit Reason for Visit: fever/vomiting Hospital Course Discharge Summary: 79 year old female who has history of right hemicolectomy status post cecal perforation due to Crohn's disease flareup 2009 currently on Remicade came in on 01/31 with with intractable nausea vomiting and colicky abdominal pain. CT abdomen revealed small bowel obstruction, enteritis/ileitis. No actual transition point is appreciated on the scan. For the SBO, she was managed conservatively with placement of NGT, followed by surgical services. She improved significantly. She is now able to pass both feces and flatus, diet has been advanced to mechanical soft which she is tolerating at the time of discharge. She also received empiric treatment with cipro/flagyl for enteritis. No further abx indicated at time of discharge. For possibility of Crohn's flare she was started on methylprednisone which is being transitioned to po prednisone taper on discharge. Her hospital course was discussed with her outpatient GI Dr. Quique Shirley in [place], who recommended doing the slow steroid taper for now for possibility of Crohn's flare and then follow-up with his office to resume treatment with Remicade. ESR has been drawn today, CRP was mildly elevated at 14. Physical Exam Narrative: EXAM NARRATIVE: GEN: Awake, alert and oriented, no acute distress CVS: S1S2 N RS: CTA B/L Abd: Soft, nt/nd , bs+ DWARF TREE GROWER: no focal neuro deficits Discharge Data Data Completed and Pending: Completed Studies During Hospitalization Category Date Time Status CT abdomen pelvis wo con [id number] Urge nt Cat Scan 01/31/20 22:39 Completed XR abdomen min 2V [id number] Urgent Exams 02/03/20 06:16 Completed XR chest 1V chata ble [id number] Stat Exams 02/01/20 01:58 Completed Vitals: Last Vital Signs Temp 97.6 F 02/04/20 11:34 Pulse 60 02/04/20 11:34 Resp 18 02/04/20 11:34 BP 176/66 02/04/20 11:34 Pulse Ox 99 02/04/20 11:34 Discharge Plan Discharge Patient Disposition: Home Condition: Stable Prescriptions: New prednisone 20 mg tablet See Rx Instructions .ROUTE .COMPLEX Qty: 90 RF: 0 pantoprazole 40 mg tablet,delayed release (DR/EC) 40 mg PO DAILY Qty: 60 RF: 0 Continued Synthroid 150 mcg Tablet 150 mcg PO DAILY RF: 0 gabapentin 100 mg Capsule 100 mg PO BID RF: 0 metoprolol succinate 25 mg Tablet Extended Release 24 Hr 25 mg PO BID RF: 0 colestipol 1 gram Tablet 1 g PO BID RF: 0 Discontinued famotidine 20 mg Tablet 20 mg PO BID RF: 0 Discharge Orders: Discharge Order (Routine); Ordered 02/04/20 Ordered By: Lori Reddy Referrals: quique shirley [Other] - 2 weeks Dereje Bah MD [Primary Care Provider] - 7-10 days (hospital discharge follow up for SBO, ?crohn's flare) Discharge Diet: Advance as tolerated Patient Instructions: Crohn's Disease, Low Fiber Diet (GEN) Discharge Attestations Time Spent in Discharge Care*: greater than 30 min Quality Metrics Clinical Quality Measures During this hospital stay, did patient experience: None Coding Level of Care Code Acute Physical Design Engineer for [facility] Fwd Diagnoses SBO (small bowel obstruction) K56.609 Exacerbation of Crohn's disease K50.90 Enteritis K52.9 Sepsis A41.9
--- NOTE | 2020-02-04 15:28 | DCPLANNER ---
Pg 2 of IM updated and explained to pt. No questions, copy provided.
[2020-02-04 15:34] VITALS: BP 142/64; PULSE 57; RESP 18; TEMP 36.7; O2SAT 96
[2020-02-04 15:44] VITALS: BP 142/64; PULSE 57; RESP 18; TEMP 36.7; O2SAT 96
[2020-02-04 16:05] LABS: Erythrocyte Sedimentation Rate 28 mm/hr (0-15)
== END 2020-02-04 17:30 | disposition home or self-care (01) | DRG 872 ==
LOC: ER 22:23 → MEDSURG 02-01 02:28
PROVIDERS: Admitting Provider Internal Medicine; Emergency Provider Emergency Medicine; PCP Family Medicine; Visit Provider Student in an Organized Health Care Education/Training Program
DX: A41.9 Sepsis, unspecified organism (principal); K56.609 Unspecified intestinal obstruction, unspecified as to partial versus complete obstruction; N17.9 Acute kidney failure, unspecified; K50.912 Crohn's disease, unspecified, with intestinal obstruction; Z90.49 Acquired absence of other specified parts of digestive tract; Z93.3 Colostomy status; M19.90 Unspecified osteoarthritis, unspecified site; F32.9 Major depressive disorder, single episode, unspecified; E03.9 Hypothyroidism, unspecified; Z87.891 Personal history of nicotine dependence; K52.9 Noninfective gastroenteritis and colitis, unspecified; E86.0 Dehydration
CPT/HCPCS: 12345; 36415; 71045; 74019; 74176; 80053; 83605; 83690; 85025; 85651; 86140; 96372; 96375; 99283; J0744; J1170; J1650; J2405; J2543; J2920; J3010; J7030; J7799; Q0163; S0030

== ENCOUNTER 2020-11-03 09:09 | Inpatient (IN) | payer OTHER, MEDICARE, SELFPAY ==
[2020-11-03] VITALS (20 sets, daily range): BP systolic 104–176; BP diastolic 52–100; PULSE 62–88; RESP 12–18; TEMP 35.9–36.8; O2SAT 94–100; BMI 24.0
--- NOTE | 2020-11-03 | SCC_ITS ---
Procedure Done: Displaced shortened left intertrochanteric hip fracture ORIF 120.7 seconds of fluoroscopic guidance, for a cumulative dose of 16.50 mGy, was provided to Dr. Melendrez by the radiology department. C-arm images of the LEFT hip were saved for the patient's permanent record. AISSATOU
--- NOTE | 2020-11-03 09:17 | XR_ITS ---
WS: [id number] Left hip, 3 views portable, AP pelvis, 11/03/2020 Clinical Data: pain Comparison: None. Findings: There is an intertrochanteric fracture of the left hip. The pelvis is intact with no fractures. The S I joints and pubic symphysis are unremarkable. The right hip is normal. There are small surgical sutures in the right lower quadrant. XR/XR hip LT 4V wo/w pel [id number] Impression: Intertrochanteric fracture of the left hip. Tonnis classification: NA
--- NOTE | 2020-11-03 09:18 | XR_ITS ---
WS: [id number] Portable AP supine chest, 11/03/2020 Clinical Data: hip fracture Comparison: Portable chest, 02/01/2020. Findings: No nodules, masses or effusions are seen. The heart is normal. The pulmonary vascularity is not increased. No pneumonia or pneumothorax is seen. The aortic arch and descending aorta show calci fication and tortuosity. There is internal fixation of an old proximal left humeral fracture. XR/XR chest 1V portable [id number] Impression: Atherosclerosis.
--- NOTE | 2020-11-03 09:18 | ECG_ITS ---
[facility] Test Date: 2020-11-03 Pat Name: Esha Manning Department: Room: Gender: Female Balance Clerk: : 1940 Requested By: Caesar Eason Order Number: [id number] Reading MD: Tariq Santiago M.D. Measurements Intervals [place] Rate: 59 P: 75 TX: 209 QRS: 13 QRSD: 85 T: 63 QT: 410 QTc: 408 Interpretive Statements SINUS BRADYCARDIA No previous ECG available for comparison Electronically Signed On 11-03-2020 20:29:54 CDT by Tariq Santiago M.D. [id number]
--- NOTE | 2020-11-03 09:21 | ED_ITS ---
HPI - Extremity Problem General: Chief complaint: Extremity Injury, Lower Stated complaint: FALL/ HIP FRACTURE Time Seen by Provider: 11/03/20 09:11 Source: patient and EMS Mode of arrival: EMS Limitations: no limitations History of Present Illness: HPI Narrative: Patient tripped at home and fell on left hip with complaints of left hip pain. MD Complaint: extremity pain and joint pain Onset (ago): minute(s) (30) Pain Consistency: constant Location: left (Hip) Severity scale (1-10): 7 Quality: sharp Radiation: none Relieving factors: nothing Exacerbating factors: range of motion Associated symptoms: Reports no associated symptoms (denies pain to chest or abd) and other (Denies any other injury. Denies head injury. Denies any pain to neck,back); Deny chest pain, fever(s), rash or short of breath Review of Systems Const: Denies: fever(s) or chills Eyes: Denies: change in vision ENMT: Denies: throat pain Card: Denies: chest pain or palpitations Resp: Denies: dyspnea or wheezing GI: Denies: abdominal pain, nausea or vomiting : Denies: flank pain Musc: Reports: extremity pain, joint pain, limited range of motion and other (Patient has shortening of the left leg with external rotation); Denies: neck pain, back pain, joint swelling, joint redness or joint warmth Skin/Breast: Denies: rash Neuro: Denies: headache(s) or numbness in extremities Psych: Denies: anxiety Jovanni/Lymph: Denies: enlarged lymph nodes PFS ED PFSH: Medical History (Updated 11/03/20 @ 10:29 by Vj Shannon MD) Colostomy present Crohn's disease Degenerative arthritis Depression GERD (gastroesophageal reflux disease) History of atrial fibrillation History of small bowel obstruction Hypothyroidism Inflammatory bowel disease Perforation of cecum Peripheral neuropathy Pseudomembranous colitis Thrombocytosis Surgical History (Updated 11/03/20 @ 10:24 by Vj Shannon MD) H/O exploratory laparotomy H/O right hemicolectomy Right hemicolectomy with ileostomy distal colon mucous fistula H/O: hysterectomy History of appendectomy History of bowel resection Injury of superior mesenteric vein Status post repair during cecum ectomy and ileostomy placement with tr ansverse mucous fistula S/P ORIF (open reduction internal fixation) fracture Left arm fracture Family History Other CAD (coronary artery disease) Stroke Social History (Updated 11/03/20 @ 10:24 by Vj Shannon MD) Smoking and tobacco status: former smoker Quit status (tobacco): has quit using tobacco Former quit date comment: Quit 2 000 Alcohol intake: current Alcohol intake frequency: few times a month Household members: spouse Housing: House Current occupational status: retired 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 Physical Exam Const: COMMON NORMALS: no acute distress, patient oriented x3, no limitations and well nourished GENERAL APPEARANCE: cooperative HENMT: COMMON NORMALS: normocephalic and atraumatic HEAD & SCALP: normoce phalic and atraumatic FACE & SINUS: normal facial exam Eye: COMMON NORMALS: EOMs intact bilaterally Neck/C-Spine: COMMON NORMALS: full ROM, no lymphadenopathy, supple and no meningeal signs GENERAL: Yes normal visual inspection Lymph: LYMPHATIC: no lymphadenopathy noted Chest: COMMONS NORMALS: normal inspection of the chest and normal palpation of entire chest wall CHEST: No Ecchymosis present and No rash Resp: COMMON NORMALS: normal respiratory effort, No retractions and clear to auscultation bilaterally EFFORT & INSPECTION: No respiratory distress AUSCULTATION: clear to auscultation bilaterally Cardio: COMMON NORMALS: regular rate, regular rhythm and Peripheral pulses 2+ throughout JUGULAR VENOUS DISTENTION: no JVD RATE: regular rate RHYTHM: regular rhythm PERIPHERAL PULSES: Peripheral pulses 2+ throughout GI: COMMON NORMALS: Normal to inspection, nondistended, normoactive bowel sounds present and non-tender : COMMON NORMALS: Yes no CVA tenderness BLADDER/KIDNEY EXAM: Yes no CVA tenderness Back/Pelvis: COMMON NORMALS: no CVA tenderness Extremity: COMMON NORMALS: capillary refill normal NARRATIVE EXTREMITY EXAM: Patient with moderate pain to left hip. Patient with external rotation an d shortening of the left leg. LEFT LOWER EXTREMITY: Yes hip joint Left hip: Yes neurovascular exam (Within normal limits) Neuro: COMMON NORMALS: patient oriented x3, CN's II-XII intact bilaterally, no focal motor deficits and no sensory deficits noted MENINGEAL SIGNS: Yes no meningeal signs Psych: COMMON NORMALS: mental status grossly normal and Normal thought process present THOUGHT PROCESS: Normal thought process present Skin: COMMON NORMALS: no rashes or lesions noted and no wounds GENERAL SKIN EXAM: no rashes or lesions noted Course Vital Signs: Vital signs: Vital Signs Temperature 97.8 F 11/03/20 09:11 Pulse Rate 65 11/03/20 09:11 Respiratory Rate 18 11/03/20 09:48 Blood Pressure 176/100 11/03/20 09:11 Pulse Oximetry 94 11/03/20 09:48 MDM - Extremity (Nontraumatic) MDM Narrative: Medical decision making narrative: Not on any blood thinners. Patient takes metoprolol 25 mg twice a day for a remote history of atrial fibrillation about 30 years ago. She states she has had no problems with atrial fibrillation since then. She also takes gabapentin 100 mg in the morning and 300 mg in the evening. She is also on Pepcid and an antidiarrheal medication that she takes chronically. Lab Data: Attestation: I reviewed the patient's lab results. Labs: Lab Results 11/03/20 11/03/20 11/03/20 Range/Units 09:40 09:40 09:40 WBC 5.9 (4.0-10.0) 10^3/ uL RBC 3.75 L (4.1-5.3) 10^6/u L Hgb 11.2 L (11.5-15.3) g/dL Hct 34.5 L (37.0-47.0) % MCV 92.0 (81-99) fL MCH 29.9 (28.0-34.0) pg MCHC 32.5 (30.0-36.0) g/dL RDW 14.3 (12.1-15.1) % Plt Count 219 (130-400) 10^3/c mm MPV 9.5 (7.4-10.4) fL Neut % (Auto) 58.9 % Lymph % (Auto) 28.7 % [place] % (Auto) 9.7 % Eos % (Auto) 1.9 % Baso % (Auto) 0.3 % Neut # (Auto) 3.47 (1.8-7.7) 10^3/u L Lymph # (Auto) 1.7 (0.8-4.8) 10^3/u L [place] # (Auto) 0.6 (0.2-0.9) 10^3/u L Eos # (Auto) 0.1 (0.0-0.8) 10^3/u L Baso # (Auto) 0.0 (0.0-0.1) 10^3/u L Nucleated RBC % (a uto) 0 % Nucleated RBCs # 0.0 /100WBC APTT 25.5 (23.9-36.7) SECO NDS Sodium 137 (136-145) mmol/L Potassium 4.3 (3.5-5.1) mmol/L Chloride 104 (98-107) mmol/L Carbon Dioxide 25 (22-29) mmol/L Anion Gap 12.3 (5-19) BUN 15 (8-23) mg/dL Creatinine 1.1 H (0.5-0.9) mg/dL GFR Calculation Not Reportable Glucose 120 H (65-115) mg/dL Calculated Osmolal ity 286 (285-295) mOsm/k g Calcium 8.4 L (8.5-10.5) mg/dL Imaging Data^: Xray Ortho: Attestation: I personally reviewed and interpreted this imaging study as follows: My impression: Left hip has closed mildly displaced mildly angulated left intertrochanteric fracture of left hip. Pelvis appears normal. EKG Data^: EKG 1: Attestation: I personally reviewed and interpreted this EKG as follows: EKG interpretation date: 11/03/20 EKG interpretation time: 10:06 Prior EKG tracings: not available for review Interpretation: Normal sinus rhythm with a heart rate of 59. Normal RI interval. Left atrial enlargement, normal ST segment. Normal QRS. Normal axis. Normal T waves. Normal QRS. Impression normal sinus rhythm. Normal EKG with left atrial enlargement. Discharge Plan Discharge Patient Disposition: Admitted As Inpatient Clinical Impression: Fracture of hip Qualifiers: Encounter type: initial encounter Fracture type: closed Laterality: left Qualified Code(s): S72.002A - Fracture of unspecified part of neck of left femur, initial encounter for closed fracture Condition: Stable Coding Level of Care Code ED Buyer Broker for [facility] Fwd Exam Comprehensive
[2020-11-03] MEDS: HYDROmorphone 1 mg/mL INJ 1 mL 0.5 MG IVP ×3 (09:48→15:28)
[2020-11-03] MEDS: ondansetron 2 mg/ML SDV 2 mL 4 MG IVP ×2 (09:48→11:05)
[2020-11-03 09:50] LABS: Basophils % 0.3 %; Eosinophils # 0.1 10^3/uL (0.0-0.8); Eosinophils % 1.9 %; Hematocrit 34.5 % (37.0-47.0); Hemoglobin 11.2 g/dL (11.5-15.3); Lymphocytes # 1.7 10^3/uL (0.8-4.8); Lymphocytes % 28.7 %; Mean Corpuscular HGB Conc 32.5 g/dL (30.0-36.0); Mean Corpuscular Hemoglobin 29.9 pg (28.0-34.0); Mean Platelet Volume 9.5 fL (7.4-10.4); Monocytes # 0.6 10^3/uL (0.2-0.9); Monocytes % 9.7 %; Neutrophils # 3.47 10^3/uL (1.8-7.7); Neutrophils % 58.9 %; Nucleated Red Blood Cells % 0 %; Platelet Count 219 10^3/cmm (130-400); Red Blood Count 3.75 10^6/uL (4.1-5.3); Red Cell Distribution Width 14.3 % (12.1-15.1); White Blood Count 5.9 10^3/uL (4.0-10.0)
[2020-11-03 10:06] LABS: Partial Thromboplastin Time 25.5 SECONDS (23.9-36.7)
[2020-11-03 10:11] LABS: Anion Gap 12.3 (5-19); Blood Urea Nitrogen 15 mg/dL (8-23); Calcium 8.4 mg/dL (8.5-10.5); Carbon Dioxide 25 mmol/L (22-29); Chloride 104 mmol/L (98-107); Glucose 120 mg/dL (65-115); Osmolality Calculated 286 mOsm/kg (285-295); Potassium 4.3 mmol/L (3.5-5.1); Sodium 137 mmol/L (136-145)
--- NOTE | 2020-11-03 10:18 | P.HP_ITS ---
Providers/Chief Complaint Primary Care Provider: Dereje Bah MD Chief Complaint: FALL/ HIP FRACTURE History of Present Illness Esha Manning is a 79 year old female who presents to the emergency department with history of falling at home when she was going around her car. She believes she tripped. She did not lose consciousness or have any dizziness prior to this. She had immediate pain in her left hip area. She denies any other injuries. She reports she had been doing well prior to this event. She denies any prior history of difficulty with anesthesia, Covid, exposure to Covid. She has been vaccinated with her second immunization being approximately 1 month ago. Patient reports she can walk up 1 flight of steps without any symptoms at all. She has no history of heart disease, or lung disease. She has had no chest discomfort at rest or with exertion. In the emergency department she has received some pain medication as well as nausea medication. I was called and informed that Dr. Salas would be her or [facility] physician and she would likely go to surgery tomorrow morning. Review of Systems General: Reports: 10 or more systems reviewed and unremarkable except in HPI and below Const: Denies: fever(s) or chills Eyes: Denies: change in vision ENMT: Denies: throat pain Card: Denies: chest pain Resp: Denies: dyspnea GI: Reports: hematochezia (Recently occasional bright red blood in stool after episode of constipation) and other (Patient reports colonoscopy is already scheduled in December); Denies: abdominal pain : Denies: flank pain Musc: Reports: extremity pain; Denies: neck pain Skin/Breast: Denies: rash Neuro: Denies: headache(s) Psych: Denies: anxiety or depression Endo: Denies: polyuria Jovanni/Lymph: Denies: easy bruising All/Imm: Denies: urticaria Medications/Allergies Home Medications Medication Instructions Recorded Confirmed Last Taken Type Synthroid 150 mcg PO DAILY 02/01/20 02/01/20 1 Day Ago History ~01/31/20 colestipol 1 g PO BID 02/01/20 02/01/20 1 Day Ago History ~01/31/20 gabapentin 100 mg PO BID 02/01/20 02/01/20 1 Day Ago History ~01/31/20 cholecalciferol (vitamin D3) 25 mcg PO DAILY 11/03/20 11/03/20 11/02/20 History [Vitamin D3] coenzyme Q10 [Co Q-10] 100 mg PO DAILY 11/03/20 11/03/20 11/02/20 History famotidine 20 mg PO BID 11/03/20 11/03/20 11/02/20 History metoprolol tartrate 25 mg PO BID 11/03/20 11/03/20 11/02/20 History vit C-vit [id number]-3 1 cap PO DAILY 11/03/20 11/03/20 11/02/20 History [Ocuvite] Allergies Allergy/AdvReac Type Severity Reaction Status Date / Time hydrocodone Allergy Unknown Verified 02/01/20 08:14 morphine Allergy Unknown Verified 02/01/20 08:14 Sulfa (Sulfonamide Allergy Unknown Verified 02/01/20 08:14 Antibiotics) PFSH Acute PFSH: Medical History (Updated 11/03/20 @ 10:29 by Vj Shannon MD) Colostomy present Crohn's disease Degenerative arthritis Depression GERD (gastroesophageal reflux disease) History of atrial fibrillation History of small bowel obstruction Hypothyroidism Inflammatory bowel disease Perforation of cecum Peripheral neuropathy Pseudomembranous colitis Thrombocytosis Surgical History (Updated 11/03/20 @ 10:24 by Vj Shannon MD) H/O exploratory laparotomy H/O right hemicolectomy Right hemicolectomy with ileostomy distal colon mucous fistula H/O: hysterectomy History of appendectomy History of bowel resection Injury of superior mesenteric vein Status post repair during cecum ectomy and ileostomy placement with transverse mucous fistula S/P ORIF (open reduction internal fixation) fracture Left arm fracture Family History Other CAD (coronary artery disease) Stroke Social History (Updated 11/03/20 @ 10:24 by Vj Shannon MD) Smoking and tobacco status: former smoker Quit status (tobacco): has quit using tobacco Former quit date comment: Quit 1999 Alcohol intake: current Alcohol intake frequency: few times a month Household members: spouse Housing: House 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 Oropharynx clear. Neck is supple no lymphadenopathy or thyromegaly Cardiovascular regular rate and rhythm without murmur, no S3 or S4 Lungs clear without wheezing or crackles Abdomen is soft nontender. 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 No obvious organomegaly. is deferred Extremities no cyanosis clubbing or edema, cap refill brisk. Dorsalis pedis pulses intact bilaterally. Skin no rash Neuro no focal deficits. Data : 11/03/20 09:40 11/03/20 09:40 Other data: EKG demonstrates a sinus rhythm, heart rate of 59, normal axis, no acute changes. Chest x-ray shows postsurgical left shoulder, atherosclerosis of the aorta, no infiltrate Pelvis film demonstrates intertrochanteric fracture left hip Calcium is 8.4 LFTs not tested A&P Assessment and plan (1) Fracture of hip: Intertrochanteric fracture left hip Pain control Place Danielle Orthopedic consultation Likely hip repair tomorrow Status: Acute Qualifiers: Encounter type: initial encounter Fracture type: closed Laterality: left Qualified Code(s): S72.002A - Fracture of unspecified part of neck of left femur, initial encounter for closed fracture (2) Fall: Fall from standing position No history to suggest syncope or arrhythmia Status: Acute (3) Anemia: Appears to be chronic and mild. Continue to monitor Status: Acute (4) Hematochezia: Patient reports in the last 1 to 2 weeks occasional blood in stool. She states this happened after an episode of constipation. We will continue to follow expectantly. She already has a colonoscopy scheduled in December. Status: Acute (5) Crohn's disease: She is on Remicade for treatment Status: Acute (6) History of atrial fibrillation: Patient reports no problems with atrial fibrillation in over 20 years. Baseline EKG demonstrates sinus rhythm. Status: Acute (7) Hypothyroidism: Check TSH Status: Acute (8) GERD (gastroesophageal reflux disease): Continue proton pump inhibitor Status: Acute Additional A&P Information Multiple other medical problems as outlined in past medical history Full code SCDs for DVT prophylaxis, and pharmacologic DVT prophylaxis anticoagulation following surgery. Attestations Medical Necessity Statement*: Will require greater than 2 midnight stay for treatment of hip fracture. Time Spent in Patient Care: Greater than 35 minutes Coding Level of Care Code Acute Hospital Plan Administrator for [facility] Fwd Diagnoses Fracture of hip S72.002A Encounter type: initial encounter Fracture type: closed Laterality: left Fall W19.XXXA Anemia D64.9 Hematochezia K92.1 Crohn's disease K50.90 History of atrial fibrillation Z86.79 Hypothyroidism E03.9 GERD (gastroesophageal reflux disease) K21.9
--- NOTE | 2020-11-03 10:20 | ECG_ITS ---
[facility] ED Test Date: 2020-11-03 Pat Name: Esha Manning Department: Room: 269 Gender: Female Health Policy Nurse: : 1940 Requested By: Vj Girmes Order Number: [id number] Georges MD: Rosenda Day M.D. Measurements Intervals [place] Rate: 68 P: 71 MN: 213 QRS: 28 QRSD: 85 T: 71 QT: 398 QTc: 424 Interpretive Statements SINUS RHYTHM WITH FIRST DEGREE AV BLOCK Compared to ECG 11/03/2020 10:03:43 First degree AV block now present Sinus bradycardia no longer present Electronically Signed On 11-11-2020 6:47:20 CDT by Rosenda Day M.D. [id number]
--- NOTE | 2020-11-03 11:15 | W.ED.EXTPRO ---
HPI - Extremity Problem General: Chief complaint: Extremity Injury, Lower Stated complaint: FALL/ HIP FRACTURE Time Seen by Provider: 11/03/20 09:11 Source: patient and EMS Mode of arrival: EMS Limitations: no limitations History of Present Illness: Pain Consistency: constant Location: left (Hip) Severity scale (1-10): 7 Quality: sharp Relieving factors: nothing Exacerbating factors: range of motion PFSH ED PFSH: Medical History Colostomy present Crohn's disease Degenerative arthritis Depression GERD (gastroesophageal reflux disease) History of atrial fibrillation History of small bowel obstruction Hypothyroidism Inflammatory bowel disease Perforation of cecum Peripheral neuropathy Pseudomembranous colitis Thrombocytosis Surgical History H/O exploratory laparotomy H/O right hemicolectomy Right hemicolectomy with ileostomy distal colon mucous fistula H/O: hysterectomy History of appendectomy History of bowel resection Injury of superior mesenteric vein Status post repair during cecum ectomy and ileostomy placement with transverse mucous fistula S/P ORIF (open reduction internal fixation) fracture Left arm fracture Family History Other CAD (coronary artery disease) Stroke Social History Smoking and tobacco status: former smoker Quit status (tobacco): has quit using tobacco Former quit date comment: Quit 1999 Alcohol intake: current Alcohol intake frequency: few times a month Household members: spouse Housing: House Current occupational status: retired 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 Signs: Vital signs: Vital Signs Temperature 97.6 F 11/03/20 17:45 Pulse Rate 82 11/03/20 17:45 Respiratory Rate 12 11/03/20 17:45 Blood Pressure 111/69 11/03/20 17:45 Pulse Oximetry 94 11/03/20 17:45 MDM - Extremity (Nontraumatic) Lab Data: Labs: Lab Results 11/03/20 11/03/20 11/03/20 Range/Units 09:40 09:40 09:40 WBC 5.9 (4.0-10.0) 10^3/ uL RBC 3.75 L (4.1-5.3) 10^6/u L Hgb 11.2 L (11.5-15.3) g/dL Hct 34.5 L (37.0-47.0) % MCV 92.0 (81-99) fL MCH 29.9 (28.0-34.0) pg MCHC 32.5 (30.0-36.0) g/dL RDW 14.3 (12.1-15.1) % Plt Count 219 (130-400) 10^3/c mm MPV 9.5 (7.4-10.4) fL Neut % (Auto) 58.9 % Lymph % (Auto) 28.7 % [place] % (Auto) 9.7 % Eos % (Auto) 1.9 % Baso % (Auto) 0.3 % Neut # (Auto) 3.47 (1.8-7.7) 10^3/u L Lymph # (Auto) 1.7 (0.8-4.8) 10^3/u L [place] # (Auto) 0.6 (0.2-0.9) 10^3/u L Eos # (Auto) 0.1 (0.0-0.8) 10^3/u L Baso # (Auto) 0.0 (0.0-0.1) 10^3/u L Nucleated RBC % (a uto) 0 % Nucleated RBCs # 0.0 /100WBC APTT 25.5 (23.9-36.7) SECO NDS Sodium 137 (136-145) mmol/L Potassium 4.3 (3.5-5.1) mmol/L Chloride 104 (98-107) mmol/L Carbon Dioxide 25 (22-29) mmol/L Anion Gap 12.3 (5-19) BUN 15 (8-23) mg/dL Creatinine 1.1 H (0.5-0.9) mg/dL GFR Calculation Not Reportable Glucose 120 H (65-115) mg/dL Calculated Osmolal ity 286 (285-295) mOsm/k g Calcium 8.4 L (8.5-10.5) mg/dL TSH (0.27-4.20) uIU/ mL 11/03/20 Range/Units 09:40 WBC (4.0-10.0) 10^3/ uL RBC (4.1-5.3) 10^6/u L Hgb (11.5-15.3) g/dL Hct (37.0-47.0) % MCV (81-99) fL MCH (28.0-34.0) pg MCHC (30.0-36.0) g/dL RDW (12.1-15.1) % Plt Count (130-400) 10^3/c mm MPV (7.4-10.4) fL Neut % (Auto) % Lymph % (Auto) % [place] % (Auto) % Eos % (Auto) % Baso % (Auto) % Neut # (Auto) (1.8-7.7) 10^3/u L Lymph # (Auto) (0.8-4.8) 10^3/u L [place] # (Auto) (0.2-0.9) 10^3/u L Eos # (Auto) (0.0-0.8) 10^3/u L Baso # (Auto) (0.0-0.1) 10^3/u L Nucleated RBC % (a uto) % Nucleated RBCs # /100WBC APTT (23.9-36.7) SECO NDS Sodium (136-145) mmol/L Potassium (3.5-5.1) mmol/L Chloride (98-107) mmol/L Carbon Dioxide (22-29) mmol/L Anion Gap (5-19) BUN (8-23) mg/dL Creatinine (0.5-0.9) mg/dL GFR Calculation Glucose (65-115) mg/dL Calculated Osmolal ity (285-295) mOsm/k g Calcium (8.5-10.5) mg/dL TSH 2.40 (0.27-4.20) uIU/ mL Discharge Plan Discharge Patient Disposition: Admitted As Inpatient Admit Provider: Vj Shannon Clinical Impression: Fracture of hip Qualifiers: Encounter type: initial encounter Fracture type: closed Laterality: left Qualified Code(s): S72.002A - Fracture of unspecified part of neck of left femur, initial encounter for closed fracture Condition: Stable Coding Level of Care Code ED Flight Deck Officer for [facility]
[2020-11-03] MEDS: oxyCODONE 5 mg IR Tab/Cap PO ×2 (12:06→21:18)
--- NOTE | 2020-11-03 12:36 | P.CONIM_ITS ---
Providers/Reason For Consult Consulting Physician/Specialty*: Michelle Melendrez MD Reason for Consult*: Left intertrochanteric hip fracture Requesting Physician: Vj Shannon MD Attending Physician: Vj Shannon MD Primary Care Provider: Dereje Bah MD History of Present Illness History of Present Illness Esha Manning is a 79 year old female who presented today to the emergency department after falling at home. The patient states she was going around her car and she believes she tripped. She denies any dizziness or loss of consciousness associated with this fall. She had immediate pain in her left hip area and was unable to ambulate. She denied any other injury. She has been vaccinated with Covid vaccine with the second immunization being approximately a month ago. Prior to her fall, she had no respiratory symptoms she has no history of other issues of concern. Initially, care was to be provided by Dr. Salas, however, given surgical schedules, we were able to better accommodate the patient by transferring her care to co. Hopes are that she will be able to go this afternoon to surgery rather than having an extended hospital stay potentially. Review of Systems General: Reports: 10 or more systems reviewed and unremarkable except in HPI and below Const: Denies: fever(s) or chills Eyes: Denies: change in vision ENMT: Denies: throat pain Card: Denies: chest pain or palpitations Resp: Denies: dyspnea or wheezing GI: Reports: hematochezia (Recently occasional bright red blood in stool after episode of constipation) and other (Patient reports colonoscopy is already scheduled in December); Denies: abdominal pain, nausea or vomiting : Denies: flank pain Musc: Reports: extremity pain, joint pain, limited range of motion and other (Patient has shortening of the left leg with external rotation); Denies: neck pain, back pain, joint swelling, joint redness or joint warmth Skin/Breast: Denies: rash Neuro: Denies: headache(s) or numbness in extremities Psych: Denies: anxiety or depression Endo: Denies: polyuria Jovanni/Lymph: Denies: easy bruising or enlarged lymph nodes All/Imm: Denies: urticaria Meds/Allergies Home Medications and Allergies Home Medications Medication Instructions Recorded Confirmed Last Taken Type colestipol 1 g PO BID 02/01/20 11/03/20 11/02/20 History gabapentin See Rx Instructions .ROUTE .COMPLEX 02/01/20 11/03/20 11/02/20 History levothyroxine [Synthroid] 150 mcg PO DAILY 02/01/20 11/03/20 11/02/20 History cholecalciferol (vitamin D3) 25 mcg PO DAILY 11/03/20 11/03/20 11/02/20 History [Vitamin D3] coenzyme Q10 [Co Q-10] 100 mg PO DAILY 11/03/20 11/03/20 11/02/20 History famotidine 20 mg PO BID 11/03/20 11/03/20 11/02/20 History metoprolol tartrate 25 mg PO BID 11/03/20 11/03/20 11/02/20 History vit C-vit [id number] 1 cap PO DAILY 11/03/20 11/03/20 11/02/20 History [Ocuvite] Allergies Allergy/AdvReac Type Severity Reaction Status Date / Time hydrocodone Allergy Unknown Verified 02/01/20 08:14 morphine Allergy Unknown Verified 02/01/20 08:14 Sulfa (Sulfonamide Allergy Unknown Verified 02/01/20 08:14 Antibiotics) Current Medications Current Medications Generic Name Dose Route Start Last Admin Trade Name Freq PRN Reason Stop Dose Admin Hydromorphone HCl 0.5 mg 11/03/20 10:31 11/03/20 11:05 Hydromorphone 1 Mg/Ml Inj 1 Ml IVP 0.5 mg Q4H PRN Administration SEVERE PAIN Ondansetron HCl 4 mg 11/03/20 10:31 11/03/20 11:05 Ondansetron 2 Mg/Ml Sdv 2 Ml IVP 4 mg Q6H PRN Administration vomiting, or N/V if npo Oxycodone HCl 5 mg 11/03/20 10:31 11/03/20 12:06 Oxycodone 5 Mg Ir Tab/Cap PO 5 mg Q4H PRN Administration PAIN PFSH Acute PFSH: Medical History Colostomy present Crohn's disease Degenerative arthritis Depression GERD (gastroesophageal reflux disease) History of atrial fibrillation History of small bowel obstruction Hypothyroidism Inflammatory bowel disease Perforation of cecum Peripheral neuropathy Pseudomembranous colitis Thrombocytosis Surgical History H/O exploratory laparotomy H/O right hemicolectomy Right hemicolectomy with ileostomy distal colon mucous fistula H/O: hysterectomy History of appendectomy History of bowel resection Injury of superior mesenteric vein Status post repair during cecum ectomy and ileostomy placement with transverse mucous fistula S/P ORIF (open reduction internal fixation) fracture Left arm fracture Family History Other CAD (coronary artery disease) Stroke Social History Smoking and tobacco status: former smoker Quit status (tobacco): has quit using tobacco Former quit date comment: Quit 1999 Alcohol intake: current Alcohol intake frequency: few times a month Household members: spouse Housing: House Current occupational status: retired 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 Vitals/I&O/Wt Last Vital Signs Temp 97.8 F 11/03/20 09:11 Pulse 65 11/03/20 09:11 Resp 18 11/03/20 12:06 BP 176/100 11/03/20 09:11 Pulse Ox 100 11/03/20 12:06 Weight last 48 hrs Weight 140 lb Physical Exam Const: COMMON NORMALS: no acute distress, average body habitus, patient oriented x3 and alert GENERAL APPEARANCE: cooperative and comfortable ORIENTATION/CONSCIOUSNESS: Yes awake HENMT: COMMON NORMALS: normocephalic and atraumatic HEAD & SCALP: normocephalic and atraumatic Eye: GENERAL EYE: appearance normal, both eyes and all related structures Chest: COMMONS NORMALS: normal inspection of the chest Resp: COMMON NORMALS: normal respiratory effort EFFORT & INSPECTION: Yes able to speak in complete sentences and Yes symmetric chest movement Extremity: LEFT LOWER EXTREMITY: Yes hip joint (Extremity is shortened and externally rotated) Left hip: Yes inspection (No significant ecchymosis), Yes palpation (Tender to palpation), Yes ROM (Not evaluated), Yes neurovascular exam (Intact with good motor function) and Yes other (Pulses 2+) Neuro: COMMON NORMALS: patient oriented x3 SENSORIUM/ORIENTATION: Yes alert Psych: COMMON NORMALS: mental status grossly normal APPEARANCE: Yes grossly normal ATTITUDE: Yes calm and Yes engaged ATTENTION/CONCENTRATION: Yes attention grossly intact Skin: COMMON NORMALS: no rashes or lesions noted GENERAL SKIN EXAM: no rashes or lesions noted Urinary Catheter Management^: Danielle: Cath Placed During This Visit: yes Urinary Catheter Date of Insertion: 11/03/20 Urinary Catheter Time of Insertion: 11:24 Data Imaging^: Xray Ortho: I personally reviewed and interpreted this imaging study as follows: My impression: AP pelvis along with isolated AP and lateral of the left hip d emonstrate a shortened displaced left intertrochanteric hip fracture. A&P Assessment and plan (1) Closed intertrochanteric fracture of left hip: This 79-year-old woman was admitted through the emergency department when she had a fall at her home. She was walking around her car at her home where she lives by herself. She fell and denies any issue with syncope or loss of consciousness. She denies any other injury. She is seen in her room with her son. Discussion is undertaken regarding surgical treatment of this fracture in the form of an open reduction internal fixation with a Adrienne gamma nail. Risks and complications are discussed with the surgical procedure. She understands there is a chance of nonunion or malunion as well as hardware issues. She wishes to proceed. Our plan is to proceed today at approximately 1600. The patient understands and wishes to be discharged to [facility] afterwards so that she can regain strength and function and return to her independent living uneventfully. Status: Acute Qualifiers: Encounter type: initial encounter Fracture alignment: displaced Qualified Code(s): S72.142A - Displaced intertrochanteric fracture of left femur, initial encounter for closed fracture Consult Attestations Medical Necessity Statement: Patient requires hospital admission for treatment of intertrochanteric left hip fracture. Coding Level of Care Code Acute Weight Loss Consultant for [facility] Diagnoses Closed intertrochanteric fracture of left hip S72.142A Encounter type: initial encounter Fracture alignment: displaced
--- NOTE | 2020-11-03 12:38 | PC.NURSE ---
received report from Naima RN at 121
--- NOTE | 2020-11-03 15:44 | PC.NURSE ---
Surgery Pt was taken down to surgery via her bed.
[2020-11-03 16:03] LABS: Urine Color Yellow (Yellow); pH Urine 5 (5-7)
[2020-11-03 16:04] LABS: Bilirubin Urine Neg (Negative); Blood Urine 2+ (Negative); Glucose Urine UA Norm (Normal); Ketones Urine Negative (Negative); Leukocyte Esterase Urine Negative (Negative); Nitrate Urine Negative (Negative); Protein Urine Neg (Negative); Urobilinogen Urine Norm (Negative)
[2020-11-03 16:05] LABS: WBC Urine 0-4 /hpf (0-5)
[2020-11-03 16:06] LABS: Bacteria Urine TRACE /hpf; Squamous Epithelial Cell Urine 0-4 /hpf (0-5)
[2020-11-03 16:07] LABS: Hyaline Casts Urine 0-4 /lpf; Mucus Urine TRACE /hpf
[2020-11-03 16:13] LABS: Add Urine Culture? No
[2020-11-03] MEDS: ceFAZolin 1,000 mg SDV 1000 MG (16:15)
[2020-11-03] MEDS: acetaminophen 1,000 MG/100 ML PIGGYBACK 400 MG IV ×2 (16:55→22:26)
--- NOTE | 2020-11-03 17:29 | XR_ITS ---
WS: [id number] Left hip, C-arm fluoroscopy views, 11/03/2020 Clinical Data: OR PICS Comparison: Pelvis and left hip, 11/03/2020 Findings: The intertrochanteric fracture left hip has been repaired with a left hip nail. There is a proximal l eft femoral intramedullary johnnie aiding in the reduction. XR/XR hip LT 2-3V wo/w pel* [id number] Impression: Left hip nail repairing intertrochanteric hip fracture. Tonnis classification: NA
--- NOTE | 2020-11-03 17:48 | SUR.PHASEI ---
1045 PT HAD SPINAL, NO MOVEMENT IN LOWER EXTREMITIES, L. PEDAL PULSE PALPATED, CAP REFILL <3 SEC, FIRST ICE APPLIED
--- NOTE | 2020-11-03 18:15 | PM.OP ---
Operative Report Date of procedure: November 03, 2020 Pre-op Diagnosis: Left intertrochanteric hip fracture Post-op diagnosis: same Procedure Done: Displaced shortened left intertrochanteric hip fracture Implants: The [place] gamma 3 nail system utilizing an 11 mm x 180 mm x 125 degree gamma 3 trochanteric nail with a 10.5 mm x 105 mm gamma 3 lag screw and a distal 5 mm x 37.5 mm fully locking threaded screw Specimens removed/disposition: None Pathology: none sent Surgeon: Michelle Melendrez Substation Operator Helper: None Anesthesia: MAC (With spinal, ASA 3) Estimated blood loss (mL): 20 IV fluids (mL): 600 Urine output (mL): 50 Complications: None Findings: Shortened left intertrochanteric hip fracture Condition: stable Disposition: PACU (Then return to floor for postoperative management) Brief History: This 79-year-old woman was in her usual state of health when she slipped and fell in a wet area while going around the car to help her friend. Routinely, she ambulates independently and lives alone. She is highly functional. She denies any loss of consciousness, dizziness, or other reason for her fall other than she feels that it was wet and she slipped. Procedure: Patient is brought to the operating theater. After undergoing adequate general anesthesia with intubation, the patient was transferred to the fracture table, positioned on the table and fluoroscopic guidance obtained throughout the surgical procedure. Prior to the commencement of the surgical procedure, a surgical pause was performed. At the time of the surgical pause, we confirmed the site and side of surgery as well as preoperative surgical markings and appropriate and timely administration of IV antibiotics, Ancef 2 g. Availability of equipment was also confirmed. Fluoroscopy was used to confirm the fracture was appropriately reduced in both AP and lateral planes. An incision was then made slightly above the greater trochanter to allow access to the greater trochanter. An awl was used to enter the greater trochanter and a guidewire was subsequently placed. Once the guidewire was confirmed to be in appropriate position in AP and lateral planes, reaming was accomplished over this to allow for the proximal diameter of the nail. Guidewire was then removed. This was replaced using the awl and fluoroscopic guidance. A size 11 mm x 180 mm x 125 degree gamma nail was placed into appropriate position with positioning being confirmed in AP and lateral planes on the x-ray. It passed without difficulty. Guidewire was then passed through the jigging system into the femoral head. We wanted to be center or slightly inferior and posterior to center. Guidewire was placed into appropriate position. Once the guidewire was in appropriate position and this position was confirmed by x-ray. This was then measured and we chose a 105 mm lag screw. We reamed to allow for the lag screw to be placed. The 105 mm lag screw was then passed into the femoral head through the trochanteric nail. This was passed uneventfully and again position was confirmed in AP and lateral planes. Compression was obtained under fluoroscopic guidance. The set screw was then placed in position, tightened completely, and subsequently backed off one-eighth turn. The construct was left in position and attention was directed distally. Cannulas were again used to determine appropriate placement for the distal screw. This was placed in position without difficulty. It was measured off of the drill. The appropriate length screw was then obtained and placed in position without difficulty. Once the screw was in position, we confirmed appropriate placement of the components, and we removed the jigging system. Attention was then directed to closure. The hip was copiously irrigated with normal saline with antibiotics. Following this it was dried and closed. Tensor fascia tony was closed proximally with 0 Vicryl in an interrupted fashion. Subcutaneous tissues were closed with a combination of 0 Vicryl and 2-0 Monocryl, and the skin was closed with 3-0 Monocryl. This was then covered with Dermabond, Steri-Strips, and OpSite. The patient was removed from the fracture table and returned to recovery in satisfactory condition. The patient will be discharged to the floor for postoperative rehabilitation and pain management. There were no specimens obtained. Associated Problem List Diagnoses (1) Closed intertrochanteric fracture of left hip: Qualifiers: Encounter type: initial encounter Fracture alignment: displaced Qualified Code(s): S72.142A - Displaced intertrochanteric fracture of left femur, initial encounter for closed fracture
--- NOTE | 2020-11-03 20:53 | ANES.PREANE2 ---
Pre-Anesthetic Assessment Pre-Anesthetic Assessment: Height/Weight: Height 1.63 m Weight 63.503 kg Temp Pulse Resp BP Pulse Ox 96.9 F L 78 14 114/68 100 11/03/20 19:02 11/03/20 19:02 11/03/20 19:02 11/03/20 19:02 11/03/20 19:02 Preop Diagnosis: Left intertrochanteric hip fracture Proposed Procedure: Operation Date: 11/03/20 16:00 Proposed Procedures p Trochanteric Femoral Nail(Left) - Michelle Melendrez MD Was Beta Theresa taken within 24 hours: N/A Was Clonidine taken within 24 hours: N/A Last intake: Intake Last Liquid Date 11/03/20 Last Liquid Time 07:00 Last Solid Date 11/03/20 Last Solid Time 07:00 Social: Social History: No alcohol and No tobacco Exam: Pre-Anes Outpt Exam: alert, oriented x 3, clear to auscultation bilaterally and regular rate & rhythm Airway: Submandibular: WNL Cervical ROM: WNL MP: 2 Dentition: False CV/HEM: CV/HEM: Afib GI: GI: GERD Comments: Crohn's Metabolic: Metabolic: Thyroid Anesthetic Plan: ASA status: 3 Anesthesia: Regional (specify below) Other: SAB Risk of > 500 ml blood loss (7ml/kg in children): No Meds/Allergies Current Medications: Current Medications Generic Name Dose Route Start Last Admin Trade Name Freq PRN Reason Stop Dose Admin Hydromorphone HCl 0.5 mg 11/03/20 10:31 11/03/20 15:28 Hydromorphone 1 Mg/Ml Inj 1 Ml IVP 0.5 mg Q4H PRN Administration SEVERE PAIN Ondansetron HCl 4 mg 11/03/20 10:31 11/03/20 11:05 Ondansetron 2 Mg /Ml Sdv 2 Ml IVP 4 mg Q6H PRN Administration vomiting, or N/V if npo Oxycodone HCl 5 mg 11/03/20 10:31 11/03/20 12:06 Oxycodone 5 Mg I r Tab/Cap PO 5 mg Q4H PRN Administration PAIN PFSH Anesthesia PFSH: Medical History Colostomy present Crohn's disease Degenerative arthritis Depression GERD (gastroesophageal reflux disease) History of atrial fibrillation History of small bowel obstruction Hypothyroidism Inflammatory bowel disease Perforation of cecum Peripheral neuropathy Pseudomembranous colitis Thrombocytosis Surgical History H/O exploratory laparotomy H/O right hemicolectomy Right hemicolectomy with ileostomy distal colon mucous fistula H/O: hysterectomy History of appendectomy History of bowel resection Injury of superior mesenteric vein Status post repair during cecum ectomy and ileostomy placement with transverse mucous fistula S/P ORIF (open reduction internal fixation) fracture Left arm fracture Family History Other CAD (coronary artery disease) Stroke Social History Smoking and tobacco status: former smoker Quit status (tobacco): has quit using tobacco Former quit date comment: Quit 1999 Alcohol intake: current Alcohol intake frequency: few times a month Household members: spouse Housing: House 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 occupational status: 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 Data Anesthesia CBC & Chem 7: 11/03/20 09:40 11/03/20 09:40 Other Labs: Laboratory Results - last 48 hr 11/03/20 11/03/20 11/03/20 09:40 09:40 09:40 WBC 5.9 RBC 3.75 L Hgb 11.2 L Hct 34.5 L MCV 92.0 MCH 29.9 MCHC 32.5 RDW 14.3 Plt Count 219 MPV 9.5 Neut % (Auto) 58.9 Lymph % (Auto) 28.7 Yates % (Auto) 9.7 Eos % (Auto) 1.9 Baso % (Auto) 0.3 Neut # (Auto) 3.47 Lymph # (Auto) 1.7 Yates # (Auto) 0.6 Eos # (Auto) 0.1 Baso # (Auto) 0.0 Nucleated RBC % (auto) 0 Nucleated RBCs # 0.0 APTT 25.5 Sodium 137 Potassium 4.3 Chloride 104 Carbon Dioxide 25 Anion Gap 12.3 BUN 15 Creatinine 1.1 H GFR Calculation Not Reportable Glucose 120 H Calculated Osmolality 286 Calcium 8.4 L TSH Urine Color Urine Appearance Urine pH Ur Specific [place] Urine Protein Urine Glucose (UA) Urine Ketones Urine Blood Urine Nitrate Urine Bilirubin Urine Urobilinogen Ur Leukocyte Esterase Urine RBC Urine WBC Ur Squamous Epith Cells Amorphous Sediment Urine Bacteria Hyaline Casts Urine Mucus 11/03/20 11/03/20 09:40 15:41 WBC RBC Hgb Hct MCV MCH MCHC RDW Plt Count MPV Neut % (Auto) Lymph % (Auto) Yates % (Auto) Eos % (Auto) Baso % (Auto) Neut # (Auto) Lymph # (Auto) Yates # (Auto) Eos # (Auto) Baso # (Auto) Nucleated RBC % (auto) Nucleated RBCs # APTT Sodium Potassium Chloride Carbon Dioxide Anion Gap BUN Creatinine GFR Calculation Glucose Calculated Osmolality Calcium TSH 2.40 Urine Color Yellow Urine Appearance Sl cloudy A Urine pH 5 Ur Specific [place] 1.020 Urine Protein Neg Urine Glucose (UA) Norm Urine Ketones Negative Urine Blood 2+ H Urine Nitrate Negative Urine Bilirubin Neg Urine Urobilinogen Norm Ur Leukocyte Esterase Negative Urine RBC 5-10 H Urine WBC 0-4 H Ur Squamous Epith Cells 0-4 H Amorphous Sediment Not Reportable Urine Bacteria Trace Hyaline Casts 0-4 H Urine Mucus Trace Cardiac Studies: No Data to Display
--- NOTE | 2020-11-03 20:56 | ANE.PACU2 ---
Inpatient post-anesthesia follow up: Airway intact: Yes Vital signs: Temperature 96.9 F Pulse Rate [Right Radial] 65 Pulse Rate 78 Respiratory Rate 14 Blood Pressure [Le ft Arm] 176/100 Blood Pressure 114/68 Pulse Oximetry 100 Oxygen Delivery Me thod Room Air Oxygen Flow Rate 2 Fraction of Inspir ed Oxygen Hydration adequate: Yes Nausea and vomiting: No Pain level: 1 Mental status: Baseline
[2020-11-03] MEDS: sodium chloride 0.9% 1,000 ML 75 ML IV (21:15)
[2020-11-03] MEDS: metoprolol tartrate 25 mg Tablet PO (21:15)
[2020-11-04] VITALS (7 sets, daily range): BP systolic 111–152; BP diastolic 63–74; PULSE 62–99; RESP 15–18; TEMP 36.7–36.8; O2SAT 96–99
[2020-11-04 02:47] LABS: Alanine Aminotransferase 10 U/L (0-33); Alkaline Phosphatase 60 IU/L (35-105); Anion Gap 13.2 (5-19); Aspartate Amino Transferase 13 U/L (0-32); Basophils % 0.3 %; Blood Urea Nitrogen 15 mg/dL (8-23); Calcium 7.5 mg/dL (8.5-10.5); Carbon Dioxide 23 mmol/L (22-29); Chloride 106 mmol/L (98-107); Eosinophils % 0.2 %; Globulin 2.9 g/dL (1.3-4.6); Glucose 128 mg/dL (65-115); Hematocrit 28.5 % (37.0-47.0); Hemoglobin 9.1 g/dL (11.5-15.3); Lymphocytes % 16.9 %; Mean Corpuscular HGB Conc 31.9 g/dL (30.0-36.0); Mean Corpuscular Hemoglobin 29.7 pg (28.0-34.0); Mean Corpuscular Volume 93.1 fL (81-99); Mean Platelet Volume 9.2 fL (7.4-10.4); Monocytes # 0.6 10^3/uL (0.2-0.9); Monocytes % 9.7 %; Neutrophils # 4.32 10^3/uL (1.8-7.7); Neutrophils % 72.6 %; Nucleated Red Blood Cells % 0 %; Osmolality Calculated 288 mOsm/kg (285-295); Platelet Count 216 10^3/cmm (130-400); Potassium 4.2 mmol/L (3.5-5.1); Red Blood Count 3.06 10^6/uL (4.1-5.3); Red Cell Distribution Width 14.5 % (12.1-15.1); Sodium 138 mmol/L (136-145); Total Bilirubin 0.6 mg/dL (0.15-1.2); Total Protein 5.9 g/dL (6.6-8.7)
[2020-11-04 02:49] LABS: Creatinine Clr Calc Pharmacy 40.5527
--- NOTE | 2020-11-04 02:49 | PC.NURSE ---
PATIENT HAND OFF PATIENT RESTING QUIETLY WITH EYES CLOSED AND RESP EVEN ET UNLABORED - PT HANDED OFF TO MEETA BOSS - NO S/S OF DISTRESS NOTED
[2020-11-04] MEDS: gabapentin 100 mg Capsule PO ×2 (08:23→18:00)
[2020-11-04] MEDS: aspirin 325 mg EC Tablet PO (08:23)
[2020-11-04] MEDS: levothyroxine 150 mcg Tablet PO (08:23)
[2020-11-04] MEDS: CELEcoxib 200 mg Capsule PO ×2 (08:24→18:00)
[2020-11-04] MEDS: pantoprazole DR 40 mg Tablet PO (08:24)
[2020-11-04] MEDS: acetaminophen 1,000 MG/100 ML PIGGYBACK 400 MG IV ×2 (08:24→14:58)
[2020-11-04] MEDS: oxyCODONE 5 mg IR Tab/Cap PO (08:25)
[2020-11-04] MEDS: metoprolol tartrate 25 mg Tablet PO ×2 (10:05→21:13)
[2020-11-04] MEDS: HYDROmorphone 1 mg/mL INJ 1 mL 0.5 MG IVP (10:05)
[2020-11-04] MEDS: ondansetron 2 mg/ML SDV 2 mL 4 MG IVP (11:06)
--- NOTE | 2020-11-04 12:29 | PC.CHAP ---
Pastoral Care Encounter/Spiritual Assessment Type of Contact [] Declined bilingual medical receptionist visit [] Patient/Family/Request visit [] Outpatient visit [] Follow-up visit [] Physician referral [] Code/Alert [xx] Routine visit [] Staff referral [] Actively dying [] Patient sleeping [] Family support [] [] Out of room [] Palliative care [] [] Receiving care in room [] Pre-surgical visit [] Trauma [] Long length of stay [] ICU visit [] Other: Relational/Emotional Strength [xx] Patient feels connected with others/family/visitors/staff [] Distress [] Loneliness/isolation [] Abandonment Spirituality of Patient [xx] Person of Alley [xx] Attends Uatsdin of their Alley [xx] Believes in Prayer [xx] Reads Bible or Moravian materials [] There are Spiritual issues to be addressed Tire Bagger Interventions [xx] Prayer [xx] Active listening [xx] Non-anxious presence [] Spiritual/emotional support [] Crisis/trauma care [] Spiritual counseling [] Bereavement support [] Provided bereavement packet [] Provided Bible/devotional materials [] Provided toy/stuffed animal, coloring book to patient or family member [] Provided Communion [] Anointing/Margie [] Salvation [xx] Completed spiritual assessment [] Other: Impact on Illness or Injury [] Angry [] Fearful [] Anxious [] Often cries [] Exhaustion [] Unable to work [] Unable to attend mandaeism [] Unable to walk/stand [] Unable to read [] Unable to drive [] Unable to eat/drink [] Unable to sleep [] Unable to be with family [] Patient intubated [] Other: Summary Patient stated she feels better after hip surgery. Plans have already been made for her to go to [facility] for rehab for several weeks. Time spent with patient 7 minutes
[2020-11-04 12:54] LABS: Iron 29 ug/dL (37-145); Percent Saturation 9.7 % (20-50); Total Iron Binding Capacity 296 mcg/dl; Unsaturated Iron Binding 267 ug/dL (112-347)
[2020-11-04] MEDS: glycerin adult supp 1 EACH PR (14:57)
[2020-11-04] MEDS: polyethylene glycol 3350 Pkt 17 gm PO ×2 (15:05→18:00)
--- NOTE | 2020-11-04 15:17 | P.PN_ITS ---
Subjective Subjective: Interval history: Hospital course, lab work appreciated. Examination comfortably in bed. She states she had an okay night. Pain is tolerable. Worked well with physical therapy. Complaining of constipation. She states she is very well constipation with history of Crohn's disease but that usually puts her in SBO. Passing flatus. Requesting for glycerin suppository. Vitals/I&O/Wt Last Vital Signs Temp 98.3 F 11/04/20 08:08 Pulse 99 11/04/20 08:08 Resp 17 11/04/20 08:25 BP 129/63 11/04/20 08:08 Pulse Ox 98 11/04/20 08:08 11/04/20 11/04/20 11/04/20 06:59 14:59 22:59 Intake Total 510 / 900 1270 / 1270 Output Total 400 / 855 Balance 110 / 45 1270 / 1270 Weight last 48 hrs Weight 63.503 kg Physical Exam Narrative: EXAM NARRATIVE: General exam is a white female, calm and in no distress HEENT: Pupils equally round. Oropharynx clear. Neck is supple no lymphadenopathy or thyromegaly Cardiovascular regular rate and rhythm without murmur, no S3 or S4 Lungs clear without wheezing or crackles Abdomen is soft nontender. 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 No obvious organomegaly. is deferred Extremities no cyanosis clubbing or edema, cap refill brisk. Dorsalis pedis pulses intact bilaterally. Skin no rash Neuro no focal deficits. Urinary Catheter Management^: Danielle: Cath Placed During This Visit: yes, but has since been removed by the nurse Reason for Continuing Indwelling Catheter: Perioperative Use in Selected Surgeries Urinary Catheter Date of Insertion: 11/03/20 Urinary Catheter Time of Insertion: 11:24 Date Urinary Catheter Removed: 11/04/20 Time Urinary Catheter Discontinued: 06:52 Data : 11/04/20 02:03 11/04/20 02:03 A&P Assessment and plan (1) Fracture of hip: Intertrochanteric fracture left hip post ORIF day 1 Pain control. Stop [place] given constipation. Start patient on tramadol. Patient is okay with the same. Remove Danielle. Anticoagulation, physical therapy, diarrhea operative antibiotics as per orthopedic team. Status: Acute Qualifiers: Encounter type: initial encounter Fracture type: closed Laterality: left Qualified Code(s): S72.002A - Fracture of unspecified part of neck of left femur, initial encounter for closed fracture (2) Fall: Fall from standing position No history to suggest syncope or arrhythmia Status: Acute (3) Anemia: Globin 9.1 today. Check iron panel, vitamin B12, folate levels. Chronic anemia. Most likely reaching postoperative equilibrium. Continue to monitor. Status: Acute (4) Hematochezia: Most likely secondary to Crohn's disease. Patient reports in the last 1 to 2 weeks occasional blood in stool. She states this happened after an episode of constipation. We will continue to follow expectantly. She already has a colonoscopy scheduled in December. Status: Acute (5) Crohn's disease: She is on Remicade for treatment. Start patient on aggressive bowel regimen. She is requesting glycerin suppository. Status: Acute (6) History of atrial fibrillation: Patient reports no problems with atrial fibrillation in over 20 years. Baseline EKG demonstrates sinus rhythm. Status: Acute (7) Hypothyroidism: Stable. Status: Acute (8) GERD (gastroesophageal reflux disease): Continue proton pump inhibitor Status: Acute Additional A&P Information Multiple other medical problems as outlined in past medical history Full code SCDs for DVT prophylaxis, and pharmacologic DVT prophylaxis anticoagulation following surgery. Attestations Medical Necessity Statement*: Requires further hospitalization for postoperative management of left intertrochanteric fracture. Time Spent in Patient Care: Greater than 35 minutes (>than 50% of time spent in counselling and/or direct pt care on unit) . Coding Level of Care Code Acute Utilities Equipment Repairer for [facility] Brian Diagnoses Fracture of hip S72.002A Encounter type: initial encounter Fracture type: closed Laterality: left Fall W19.XXXA Anemia D64.9 Hematochezia K92.1 Crohn's disease K50.90 History of atrial fibrillation Z86.79 Hypothyroidism E03.9 GERD (gastroesophageal reflux disease) K21.9
[2020-11-04 16:43] LABS: Folate Level 8.7 ng/mL (4.8-37.3)
[2020-11-04 17:42] LABS: Vitamin B12 150 pg/mL (232-1245)
--- NOTE | 2020-11-04 18:01 | P.PN_ITS ---
Subjective Subjective: Interval history: Patient is seen today after undergoing left intertrochanteric hip fracture fixation with a gamma nail. She is doing well and working with therapy. She will require aggressive therapy to fully reach potential following this injury. Medications: Reviewed: Yes Vitals/I&O/Wt Last Vital Signs Temp 98.3 F 11/04/20 17:38 Pulse 65 11/04/20 17:38 Resp 15 11/04/20 17:38 BP 139/66 11/04/20 17:38 Pulse Ox 98 11/04/20 17:38 11/04/20 11/04/20 11/04/20 06:59 14:59 22:59 Intake Total 510 / 900 1270 / 1270 150 / 1420 Output Total 400 / 855 Balance 110 / 45 1270 / 1270 150 / 1420 Weight last 48 hrs Weight 140 lb Physical Exam 2 Const: COMMON NORMALS: no acute distress, average body habitus, patient oriented x3 and alert GENERAL APPEARANCE: cooperative and comfortable ORIENTATION/CONSCIOUSNESS: Yes awake HENMT: COMMON NORMALS: normocephalic and atraumatic HEAD & SCALP: normocephalic and atraumatic Eye: GENERAL EYE: appearance normal, both eyes and all related structures Chest: COMMONS NORMALS: normal inspection of the chest Resp: COMMON NORMALS: normal respiratory effort EFFORT & INSPECTION: Yes able to speak in complete sentences and Yes symmetric chest movement Extremity: LEFT LOWER EXTREMITY: Yes hip joint (There is bruising about the left hip joint consistent with patient's fall) Left hip: Yes inspection (There is no evidence of infection, swelling is minimal), Yes palpation (Minimal tenderness to palpation), Yes ROM (Not evaluated) and Yes neurovascular exam (I ntact distally) Neuro: COMMON NORMALS: patient oriented x3 SENSORIUM/ORIENTATION: Yes alert Psych: COMMON NORMALS: mental status grossly normal APPEARANCE: Yes grossly normal ATTITUDE: Yes calm and Yes engaged ATTENTION/CONCENTRATION: Yes attention grossly intact Skin: COMMON NORMALS: no rashes or lesions noted GENERAL SKIN EXAM: no rashes or lesions noted Urinary Catheter Management^: Danielle: Cath Placed During This Visit: yes, but has since been removed by the nurse Reason for Continuing Indwelling Catheter: Perioperative Use in Selected Surgeries Urinary Catheter Date of Insertion: 11/03/20 Urinary Catheter Time of Insertion: 11:24 Date Urinary Catheter Removed: 11/04/20 Time Urinary Catheter Discontinued: 06:52 Data : 11/04/20 02:03 11/04/20 02:03 A&P Assessment and plan (1) Closed intertrochanteric fracture of left hip: This 79-year-old woman was admitted through the emergency department when she had a fall at her home. She was walking around her car helping a friend. By history, she lives alone and is extremely high functioning.. She fell and denies any issue with syncope or loss of consciousness. She denies any other injury. Patient is working with physical therapy. She is weightbearing as tolerated. She will follow up with me in the office in approximately 2 to 3 weeks. She understands that I am out of town, but Dr. Salas is available to monitor her while hospitalized. Her case is also discussed with the hospitalist team. Status: Acute Qualifiers: Encounter type: initial encounter Fracture alignment: displaced Qualified Code(s): S72.142A - Displaced intertrochanteric fracture of left femur, initial encounter for closed fracture Attestations Medical Necessity Statement*: Inpatient status required for rehabilitation from hip fracture. Coding Level of Care Code Acute Copper Roller Handler Printing for Bev Torres Diagnoses Closed intertrochanteric fracture of left hip S72.142A Encounter type: initial encounter Fracture alignment: displaced
[2020-11-05 04:30] VITALS: BP 128/70; PULSE 66; RESP 16; TEMP 36.5; O2SAT 99
[2020-11-05 08:00] VITALS: BP 114/58; PULSE 91; RESP 14; TEMP 36.8; O2SAT 98
[2020-11-05 08:20] LABS: Basophils % 0.4 %; Eosinophils # 0.2 10^3/uL (0.0-0.8); Hemoglobin 8.9 g/dL (11.5-15.3); Lymphocytes # 0.9 10^3/uL (0.8-4.8); Lymphocytes % 18.1 %; Mean Corpuscular HGB Conc 31.8 g/dL (30.0-36.0); Mean Corpuscular Hemoglobin 29.9 pg (28.0-34.0); Mean Platelet Volume 9.3 fL (7.4-10.4); Monocytes # 0.6 10^3/uL (0.2-0.9); Monocytes % 12.1 %; Neutrophils % 65.6 %; Nucleated Red Blood Cells % 0 %; Platelet Count 211 10^3/cmm (130-400); Red Blood Count 2.98 10^6/uL (4.1-5.3); Red Cell Distribution Width 14.6 % (12.1-15.1)
[2020-11-05 08:40] LABS: Alanine Aminotransferase < 5 U/L (0-33); Albumin Level 2.9 g/dL (3.5-5.2); Alkaline Phosphatase 58 IU/L (35-105); Anion Gap 13.1 (5-19); Aspartate Amino Transferase 17 U/L (0-32); Blood Urea Nitrogen 14 mg/dL (8-23); Calcium 7.6 mg/dL (8.5-10.5); Carbon Dioxide 21 mmol/L (22-29); Chloride 107 mmol/L (98-107); Creatinine Clr Calc Pharmacy 40.5527; Globulin 3.1 g/dL (1.3-4.6); Glucose 107 mg/dL (65-115); Osmolality Calculated 285 mOsm/kg (285-295); Potassium 4.1 mmol/L (3.5-5.1); Sodium 137 mmol/L (136-145); Total Bilirubin 0.7 mg/dL (0.15-1.2)
[2020-11-05] MEDS: gabapentin 100 mg Capsule PO ×2 (09:28→17:12)
[2020-11-05] MEDS: polyethylene glycol 3350 Pkt 17 gm PO (09:28)
[2020-11-05] MEDS: CELEcoxib 200 mg Capsule PO (09:28)
[2020-11-05] MEDS: aspirin 325 mg EC Tablet PO (09:28)
[2020-11-05] MEDS: metoprolol tartrate 25 mg Tablet PO ×2 (09:28→22:22)
[2020-11-05] MEDS: pantoprazole DR 40 mg Tablet PO (09:36)
[2020-11-05] MEDS: levothyroxine 150 mcg Tablet PO (09:36)
--- NOTE | 2020-11-05 10:35 | PM.PN ---
Subjective Subjective: Interval history: Pain controlled patient sitting up at the bedside. Vitals/I&O/Wt Last Vital Signs Temp 98.2 F 11/05/20 08:00 Pulse 91 11/05/20 08:00 Resp 14 11/05/20 08:00 BP 114/58 11/05/20 08:00 Pulse Ox 98 11/05/20 08:00 11/04/20 11/05/20 11/05/20 22:59 06:59 14:59 Intake Total 510 / 1780 Output Total 540 / 540 Balance 510 / 1780 -540 / 1240 Physical Exam Narrative: EXAM NARRATIVE: Resting is clean dry and intact. Urinary Catheter Management^: Danielle: Cath Placed During This Visit: yes, but has since been removed by the nurse Reason for Continuing Indwelling Catheter: Perioperative Use in Selected Surgeries Urinary Catheter Date of Insertion: 11/03/20 Urinary Catheter Time of Insertion: 11:24 Date Urinary Catheter Removed: 11/04/20 Time Urinary Catheter Discontinued: 06:52 Data : 11/05/20 07:52 11/05/20 07:52 A&P Assessment and plan (1) Closed intertrochanteric fracture of left hip: Postop day #2 left IM nail. Working with physical therapy Status: Acute Qualifiers: Encounter type: initial encounter Fracture alignment: displaced Qualified Code(s): S72.142A - Displaced intertrochanteric fracture of left femur, initial encounter for closed fracture Attestations Medical Necessity Statement*: Pain control and therapy Coding Level of Care Code Acute Fire Control Assistant for [facility] Brian Diagnoses Closed intertrochanteric fracture of left hip S72.142A Encounter type: initial encounter Fracture alignment: displaced
[2020-11-05] MEDS: cyanocobalamin 1,000 mcg/mL SDV 1000 MCG SUBCUT (11:33)
[2020-11-05 11:45] VITALS: BP 120/62; PULSE 69; RESP 14; TEMP 36.7; O2SAT 98
--- NOTE | 2020-11-05 13:15 | PM.PN ---
Subjective Subjective: Interval history: No acute events overnight. Patient denies any nausea vomiting, headache. States had a bowel movement yesterday and today as well. Working appropriately with physical therapy. Vitals/I&O/Wt Last Vital Signs Temp 98.1 F 11/05/20 11:45 Pulse 69 11/05/20 11:45 Resp 14 11/05/20 11:45 BP 120/62 11/05/20 11:45 Pulse Ox 98 11/05/20 11:45 11/04/20 11/05/20 11/05/20 22:59 06:59 14:59 Intake Total 510 / 1780 360 / 360 Output Total 540 / 540 Balance 510 / 1780 -540 / 1240 360 / 360 Physical Exam Narrative: EXAM NARRATIVE: General exam is a white female, calm and in no distress HEENT: Pupils equally round. Oropharynx clear. Neck is supple no lymphadenopathy or thyromegaly Cardiovascular regular rate and rhythm without murmur, no S3 or S4 Lungs clear without wheezing or crackles Abdomen is soft nontender. 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 No obvious organomegaly. is deferred Extremities no cyanosis clubbing or edema, cap refill brisk. Dorsalis pedis pulses intact bilaterally. Skin no rash Neuro no focal deficits. Urinary Catheter Management^: Danielle: Cath Placed During This Visit: yes, but has since been removed by the nurse Reason for Continuing Indwelling Catheter: Perioperative Use in Selected Surgeries Urinary Catheter Date of Insertion: 11/03/20 Urinary Catheter Time of Insertion: 11:24 Date Urinary Catheter Removed: 11/04/20 Time Urinary Catheter Discontinued: 06:52 Data : 11/05/20 07:52 11/05/20 07:52 A&P Assessment and plan (1) Fracture of hip: Intertrochanteric fracture left hip post ORIF day 2 Pain control. Continue with tramadol in setting of constipation for Crohn's patient. Patient is okay with the same. Remove Danielle. Continue physical therapy. Aspirin for anticoagulation. Status: Acute Qualifiers: Encounter type: initial encounter Fracture type: closed Laterality: left Qualified Code(s): S72.002A - Fracture of unspecified part of neck of left femur, initial encounter for closed fracture (2) Fall: Fall from standing position No history to suggest syncope or arrhythmia Status: Acute (3) Anemia: Hemoglobin stable. Continue with oral and IV supplementation. Vitamin B12 on lower side. Replete with subcu 1000 mcg once. Will discharge on oral supplementation. Continue to monitor. Status: Acute (4) Hematochezia: Most likely secondary to Crohn's disease. Patient reports in the last 1 to 2 weeks occasional blood in stool. She states this happened after an episode of constipation. We will continue to follow expectantly. She already has a colonoscopy scheduled in December. Status: Acute (5) Crohn's disease: She is on Remicade for treatment. Start patient on aggressive bowel regimen. She is requesting glycerin suppository. Status: Acute (6) History of atrial fibrillation: Patient reports no problems with atrial fibrillation in over 20 years. Baseline EKG demonstrates sinus rhythm. Status: Acute (7) Hypothyroidism: Stable. Status: Acute (8) GERD (gastroesophageal reflux disease): Continue proton pump inhibitor Status: Acute Additional A&P Information Multiple other medical problems as outlined in past medical history Full code Regular diet high-fiber. Aspirin for DVT prophylaxis given postoperative status. Discharge planning: Patient requires further hospitalization likely discharge planning to SNF is sought. Patient has been accepted prior authorization awaited. Attestations Medical Necessity Statement*: Patient was further hospitalization for management of postoperative care for intertrochanteric fracture while safe discharge planning is sought. Time Spent in Patient Care: Greater than 35 minutes (>than 50% of time spent in counselling and/or direct pt care on unit). Coding Level of Care Code Acute Equipment Services Associate for Bev Torres Diagnoses Fracture of hip S72.002A Encounter type: initial encounter Fracture type: closed Laterality: left Fall W19.XXXA Anemia D64.9 Hematochezia K92.1 Crohn's disease K50.90 History of atrial fibrillation Z86.79 Hypothyroidism E03.9 GERD (gastroesophageal reflux disease) K21.9
[2020-11-05 16:00] VITALS: BP 157/74; PULSE 73; RESP 16; TEMP 36.5; O2SAT 93
[2020-11-05] MEDS: acetaminophen 325 mg Tablet 650 MG PO (17:14)
[2020-11-05 20:00] VITALS: BP 118/67; PULSE 73; RESP 18; TEMP 37.1; O2SAT 99
[2020-11-05 23:26] VITALS: BP 125/69; PULSE 80; RESP 17; TEMP 36.5; O2SAT 99
[2020-11-06 03:44] VITALS: BP 137/76; PULSE 75; RESP 17; TEMP 36.7; O2SAT 96
[2020-11-06 08:00] VITALS: BP 134/75; PULSE 73; RESP 16; TEMP 36.8; O2SAT 95
[2020-11-06] MEDS: levothyroxine 150 mcg Tablet PO (09:07)
[2020-11-06] MEDS: pantoprazole DR 40 mg Tablet PO (09:07)
[2020-11-06] MEDS: gabapentin 100 mg Capsule PO ×2 (09:07→17:42)
[2020-11-06] MEDS: metoprolol tartrate 25 mg Tablet PO ×2 (09:07→22:12)
[2020-11-06] MEDS: aspirin 325 mg EC Tablet PO (09:07)
--- NOTE | 2020-11-06 10:34 | PC.SOCIAL ---
IMM UPDATE IMM updated with patient. Left copy at bedside. Verbalized understanding. Initialed, dated, timed and placed in chart.
--- NOTE | 2020-11-06 11:11 | P.PN_ITS ---
Subjective Subjective: Interval history: No acute events overnight. Patient denies any nausea vomiting, headache. Working well with physical therapy. Awaiting placement to alf. Given lab vacation today. Medications: Reviewed: Yes Vitals/I&O/Wt Last Vital Signs Temp 98.2 F 11/06/20 08:00 Pulse 73 11/06/20 08:00 Resp 16 11/06/20 08:00 BP 134/75 11/06/20 08:00 Pulse Ox 95 11/06/20 08:00 11/05/20 11/06/20 11/06/20 22:59 06:59 14:59 Intake Total 240 / 1080 240 / 240 Output Total 600 / 600 Balance -360 / 480 240 / 240 Physical Exam Narrative: EXAM NARRATIVE: General exam is a white female, calm and in no distress HEENT: Pupils equally round. Oropharynx clear. Neck is supple no lymphadenopathy or thyromegaly Cardiovascular regular rate and rhythm without murmur, no S3 or S4 Lungs clear without wheezing or crackles Abdomen is soft nontender. 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 No obvious organomegaly. is deferred Extremities no cyanosis clubbing or edema, cap refill brisk. Dorsalis pedis pulses intact bilaterally. Skin no rash Neuro no focal deficits. Urinary Catheter Management^: Danielle: Cath Placed During This Visit: yes, but has since been removed by the nurse Reason for Continuing Indwelling Catheter: Perioperative Use in Selected Surgeries Urinary Catheter Date of Insertion: 11/03/20 Urinary Catheter Time of Insertion: 11:24 Date Urinary Catheter Removed: 11/04/20 Time Urinary Catheter Discontinued: 06:52 Data : 11/05/20 07:52 11/05/20 07:52 A&P Assessment and plan (1) Fracture of hip: Intertrochanteric fracture left hip post ORIF day 3 Pain control. Continue with tramadol in setting of constipation for Crohn's patient. Patient is okay with the same. Remove Danielle. Continue physical therapy. Aspirin for anticoagulation. Status: Acute Qualifiers: Encounter type: initial encounter Fracture type: closed Laterality: left Qualified Code(s): S72.002A - Fracture of unspecified part of neck of left femur, initial encounter for closed fracture (2) Fall: Fall from standing position No history to suggest syncope or arrhythmia Status: Acute (3) Anemia: Hemoglobin stable. Continue with oral and IV supplementation. Vitamin B12 on lower side. Replete with subcu 1000 mcg once. Will discharge on oral supplementation. Continue to monitor. Status: Acute (4) Hematochezia: Most likely secondary to Crohn's disease. Patient reports in the last 1 to 2 weeks occasional blood in stool. She states this happened after an episode of constipation. We will continue to follow expectantly. She already has a colonoscopy scheduled in December. Status: Acute (5) Crohn's disease: She is on Remicade for treatment. Start patient on aggressive bowel regimen. She is requesting glycerin suppository. Status: Acute (6) History of atrial fibrillation: Patient reports no problems with atrial fibrillation in over 20 years. Baseline EKG demonstrates sinus rhythm. Status: Acute (7) Hypothyroidism: Stable. Status: Acute (8) GERD (gastroesophageal reflux disease): Continue proton pump inhibitor Status: Acute Additional A&P Information Multiple other medical problems as outlined in past medical history Full code Regular diet high-fiber. Aspirin for DVT prophylaxis given postoperative status. Discharge planning: Patient requires further hospitalization likely discharge planning to SNF is sought. Patient has been accepted prior authorization awaited. Attestations Medical Necessity Statement*: Requires further hospitalization for postoperative care, safe discharge planning while placement is awaited. Time Spent in Patient Care: Greater than 35 minutes (>than 50% of time spent in counselling and/or direct pt care on unit) . Coding Level of Care Code Acute Screw Machine Operator Single Spindle for Bev Torres Diagnoses Fracture of hip S72.002A Encounter type: initial encounter Fracture type: closed Laterality: left Fall W19.XXXA Anemia D64.9 Hematochezia K92.1 Crohn's disease K50.90 History of atrial fibrillation Z86.79 Hypothyroidism E03.9 GERD (gastroesophageal reflux disease) K21.9
--- NOTE | 2020-11-06 11:14 | P.PN_ITS ---
Subjective Subjective: Interval history: pain controlled Vitals/I&O/Wt Last Vital Signs Temp 98.2 F 11/06/20 08:00 Pulse 73 11/06/20 08:00 Resp 16 11/06/20 08:00 BP 134/75 11/06/20 08:00 Pulse Ox 95 11/06/20 08:00 11/05/20 11/06/20 11/06/20 22:59 06:59 14:59 Intake Total 240 / 1080 240 / 240 Output Total 600 / 600 Balance -360 / 480 240 / 240 Physical Exam Narrative: EXAM NARRATIVE: sitting on Commode Urinary Catheter Management^: Danielle: Cath Placed During This Visit: yes, but has since been removed by the nurse Reason for Continuing Indwelling Catheter: Perioperative Use in Selected Surgeries Urinary Catheter Date of Insertion: 11/03/20 Urinary Catheter Time of Insertion: 11:24 Date Urinary Catheter Removed: 11/04/20 Time Urinary Catheter Discontinued: 06:52 Data : 11/05/20 07:52 11/05/20 07:52 A&P Assessment and plan (1) Closed intertrochanteric fracture of left hip: POD#3 Left IM nail D/C planning OK to d/c from orho stand point Status: Acute Qualifiers: Encounter type: initial encounter Fracture alignment: displaced Qualified Code(s): S72.142A - Displaced intertrochanteric fracture of left femur, initial encounter for closed fracture Attestations Medical Necessity Statement*: ok from orthopedic standpoint to d/c Coding Level of Care Code Acute Instructional Technology Specialist for [facility] Diagnoses Closed intertrochanteric fracture of left hip S72.142A Encounter type: initial encounter Fracture alignment: displaced
[2020-11-06 11:39] VITALS: BP 127/70; PULSE 73; RESP 14; TEMP 36.8; O2SAT 93
[2020-11-06] MEDS: TRAMadol 50 mg Tablet PO (14:22)
[2020-11-06 15:52] VITALS: BP 130/65; PULSE 83; RESP 16; TEMP 36.7; O2SAT 97
[2020-11-06] MEDS: acetaminophen 325 mg Tablet 650 MG PO (17:42)
--- NOTE | 2020-11-06 17:42 | PC.NURSE ---
patient rates pain 4/10 and request tylenol for pain. specification writer administered tylenol.
[2020-11-06 19:39] VITALS: BP 116/65; PULSE 84; RESP 16; TEMP 36.7; O2SAT 98
[2020-11-06 23:57] VITALS: BP 129/63; PULSE 79; RESP 16; TEMP 36.2; O2SAT 99
[2020-11-07 04:00] VITALS: BP 177/70; PULSE 100; RESP 16; TEMP 36.6; O2SAT 95
[2020-11-07 07:01] LABS: Basophils % 0.5 %; Eosinophils # 0.1 10^3/uL (0.0-0.8); Eosinophils % 1.6 %; Hematocrit 28.8 % (37.0-47.0); Hemoglobin 8.9 g/dL (11.5-15.3); Lymphocytes # 0.9 10^3/uL (0.8-4.8); Lymphocytes % 16.2 %; Mean Corpuscular HGB Conc 30.9 g/dL (30.0-36.0); Mean Corpuscular Hemoglobin 29.4 pg (28.0-34.0); Mean Platelet Volume 9.1 fL (7.4-10.4); Monocytes # 0.6 10^3/uL (0.2-0.9); Monocytes % 10.3 %; Neutrophils # 3.91 10^3/uL (1.8-7.7); Neutrophils % 69.6 %; Nucleated Red Blood Cells % 0.7 %; Platelet Count 278 10^3/cmm (130-400); Red Blood Count 3.03 10^6/uL (4.1-5.3); White Blood Count 5.6 10^3/uL (4.0-10.0)
[2020-11-07 07:23] LABS: Alanine Aminotransferase 7 U/L (0-33); Albumin Level 3.3 g/dL (3.5-5.2); Alkaline Phosphatase 67 IU/L (35-105); Anion Gap 14.8 (5-19); Aspartate Amino Transferase 19 U/L (0-32); Blood Urea Nitrogen 14 mg/dL (8-23); Carbon Dioxide 23 mmol/L (22-29); Chloride 104 mmol/L (98-107); Globulin 3.3 g/dL (1.3-4.6); Glucose 116 mg/dL (65-115); Osmolality Calculated 287 mOsm/kg (285-295); Potassium 3.8 mmol/L (3.5-5.1); Sodium 138 mmol/L (136-145); Total Bilirubin 1.4 mg/dL (0.15-1.2); Total Protein 6.6 g/dL (6.6-8.7)
[2020-11-07 07:37] VITALS: BP 135/66; PULSE 99; RESP 18; TEMP 38; O2SAT 97
[2020-11-07] MEDS: aspirin 325 mg EC Tablet PO (08:54)
[2020-11-07] MEDS: gabapentin 100 mg Capsule PO ×2 (08:55→17:03)
[2020-11-07] MEDS: levothyroxine 150 mcg Tablet PO (08:55)
[2020-11-07] MEDS: metoprolol tartrate 25 mg Tablet PO ×2 (08:55→20:12)
[2020-11-07] MEDS: pantoprazole DR 40 mg Tablet PO (08:55)
--- NOTE | 2020-11-07 10:32 | XRR_ITS ---
PROCEDURE INFORMATION: Exam: XR Chest Exam date and time: 11/07/2020 10:32 AM Age: 79 years old Clinical indication: Injury or trauma; Fall; Blunt trauma (contusions or hematomas); Additional info: Fever TECHNIQUE: Imaging protocol: XR of the chest. Views: 1 view. COMPARISON: CR XR chest 1V portable [id number] 11/03/2020 9:44 AM FINDINGS: Lungs: Emphysematous change and interstitial prominence. No acute airspace disease. Pleural spaces: No pleural effusion. Heart/Mediastinum: No cardiomegaly. Bones/joints: Postoperative change in the proximal left humerus. Osteopenia and degenerative change. XR/XR chest 1V portable [id number] IMPRESSION: Emphysematous change and interstitial prominence.
--- NOTE | 2020-11-07 10:34 | PC.NURSE ---
Patient has temp of 100.4. Notified Dr Woodruff. Rcvd verbal order from Dr Woodruff fro UA, CRP, Portable CXR, Lactic and blood cultures, physician underwriter put orders in.
[2020-11-07 11:56] VITALS: BP 102/74; PULSE 78; RESP 17; TEMP 37.1; O2SAT 94
[2020-11-07 12:00] LABS: C Reactive Protein 73.9 mg/L (0.0-4.9); Lactate (Lactic Acid level) 1.7 mmol/L (0.5-2.2)
--- NOTE | 2020-11-07 12:19 | PM.PN ---
Subjective Subjective: Interval history: Patient was seen and examined this morning she continues to have low-grade fever. deny chest pain shortness of breath, cough, nausea , vomiting constipation diarrhea, urinary complaints Medications: Reviewed: Yes Vitals/I&O/Wt Last Vital Signs Temp 98.7 F 11/07/20 11:56 Pulse 78 11/07/20 11:56 Resp 17 11/07/20 11:56 BP 102/74 11/07/20 11:56 Pulse Ox 94 11/07/20 11:56 11/06/20 11/07/20 11/07/20 22:59 06:59 14:59 Intake Total 240 / 480 720 / 720 Output Total 500 / 500 Balance 240 / 480 -500 / -20 720 / 720 Physical Exam Const: COMMON NORMALS: patient oriented x3 HENMT: COMMON NORMALS: normocephalic and atraumatic HEAD & SCALP: normocephalic and atraumatic Resp: COMMON NORMALS: clear to auscultation bilaterally EFFORT & INSPECTION: Yes symmetric chest movement AUSCULTATION: clear to auscultation bilaterally Cardio: COMMON NORMALS: regular rate, regular rhythm, S1 normal heart sound present, S2 normal heart sound present, No gallops present (Cardio), No murmurs present (Cardio), No rub (Cardio) and Peripheral pulses 2+ throughout RATE: regular rate RHYTHM: regular rhythm HEART SOUNDS: S1 normal heart sound present and S2 normal heart sound present PERIPHERAL PULSES: Peripheral pulses 2+ throughout GI: COMMON NORMALS: Normal to inspection, nondistended, normoactive bowel sounds present, Soft to palpation, non-tender, No hepatosplenomegaly present and no masses AUSCULTATION: Yes normoactive bowel sounds PALPATION: Yes Soft to palpation and Yes No hepatosplenomegaly present RECTAL EXAM: deferred Extremity: COMMON NORMALS: no clubbing, cyanosis or edema and no pedal edema Neuro: COMMON NORMALS: patient oriented x3 Urinary Catheter Management^: Danielle: Cath Placed During This Visit: yes, but has since been removed by the nurse Reason for Continuing Indwelling Catheter: Perioperative Use in Selected Surgeries Urinary Catheter Date of Insertion: 11/03/20 Urinary Catheter Time of Insertion: 11:24 Date Urinary Catheter Removed: 11/04/20 Time Urinary Catheter Discontinued: 06:52 Data : 11/07/20 06:32 11/07/20 06:32 Micro: Microbiology 11/07/20 11:09 Blood Culture - Preliminary Blood SPECIMEN COLLECTED 11/07/20 11:00 Blood Culture - Preliminary Blood SPECIMEN COLLECTED A&P Assessment and plan (1) SIRS (systemic inflammatory response syndrome): Patient currently meets SIRS criteria. panculture Urine Analysis Lactic acid Pro-Rei ESR CRP. X-ray chest We will currently hold on antibiotics. Status: Acute (2) Fracture of hip: Intertrochanteric fracture left hip post ORIF day 3 Pain control. Continue with tramadol in setting of constipation for Crohn's patient. Patient is okay with the same. Remove Danielle. Continue physical therapy. Aspirin for anticoagulation. Status: Acute Qualifiers: Encounter type: initial encounter Fracture type: closed Laterality: left Qualified Code(s): S72.002A - Fracture of unspecified part of neck of left femur, initial encounter for closed fracture (3) Fall: Fall from standing position No history to suggest syncope or arrhythmia Status: Acute (4) Anemia: Hemoglobin stable. Continue with oral and IV supplementation. Vitamin B12 on lower side. Replete with subcu 1000 mcg once. Will discharge on oral supplementation. Continue to monitor. Status: Acute (5) Hematochezia: Most likely secondary to Crohn's disease. Patient reports in the last 1 to 2 weeks occasional blood in stool. She states this happened after an episode of constipation. We will continue to follow expectantly. She already has a colonoscopy scheduled in December. Status: Acute (6) Crohn's disease: She is on Remicade for treatment. Start patient on aggressive bowel regimen. She is requesting glycerin suppository. Status: Acute (7) History of atrial fibrillation: Patient reports no problems with atrial fibrillation in over 20 years. Baseline EKG demonstrates sinus rhythm. Status: Acute (8) Hypothyroidism: Stable. Status: Acute (9) GERD (gastroesophageal reflux disease): Continue proton pump inhibitor Status: Acute Additional A&P Information Multiple other medical problems as outlined in past medical history Full code Regular diet high-fiber. Aspirin for DVT prophylaxis given postoperative status. Discharge planning: Patient requires further hospitalization likely discharge planning to SNF is sought. Patient has been accepted prior authorization awaited. Attestations Medical Necessity Statement*: Patient needs to be in hospital for SIRS rule out sepsis. 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
[2020-11-07 13:33] LABS: Add Urine Microscopic? YES; Bilirubin Urine 1+ (Negative); Blood Urine Trace (Negative); Glucose Urine UA Norm (Normal); Ketones Urine Negative (Negative); Leukocyte Esterase Urine Trace (Negative); Nitrate Urine Negative (Negative); Protein Urine Neg (Negative); Urine Appearance Clear (CLEAR); Urine Color Yellow (Yellow); Urobilinogen Urine Norm (Negative); pH Urine 5 (5-7)
[2020-11-07 13:41] LABS: RBC Urine 0-4 /hpf (0-2); Squamous Epithelial Cell Urine 0-4 /hpf (0-5); WBC Urine 0-4 /hpf (0-5)
[2020-11-07 13:42] LABS: Add Urine Culture? No; Bacteria Urine TRACE /hpf; Hyaline Casts Urine 0-4 /lpf; Mucus Urine TRACE /hpf
[2020-11-07 16:00] VITALS: BP 158/75; PULSE 104; RESP 17; TEMP 38.1; O2SAT 99
[2020-11-07] MEDS: acetaminophen 325 mg Tablet 650 MG PO (17:03)
[2020-11-07 20:00] VITALS: BP 120/67; PULSE 87; RESP 17; TEMP 36.4; O2SAT 97
[2020-11-07] MEDS: TRAMadol 50 mg Tablet PO (23:52)
[2020-11-08] VITALS: BP 128/69; PULSE 79; RESP 17; TEMP 36.3; O2SAT 98
[2020-11-08 04:00] VITALS: BP 137/74; PULSE 91; RESP 17; TEMP 36.9; O2SAT 98
[2020-11-08 07:39] VITALS: BP 154/76; PULSE 92; RESP 17; TEMP 36.8; O2SAT 96
--- NOTE | 2020-11-08 09:16 | PC.SOCIAL ---
IMM Update Pg.2 of IMM updated and reviewed with patient who verbalized understanding. Copy provided.
[2020-11-08] MEDS: gabapentin 100 mg Capsule PO ×2 (09:31→17:32)
[2020-11-08] MEDS: levothyroxine 150 mcg Tablet PO (09:32)
[2020-11-08] MEDS: metoprolol tartrate 25 mg Tablet PO ×2 (09:32→20:59)
[2020-11-08] MEDS: aspirin 325 mg EC Tablet PO (09:32)
[2020-11-08] MEDS: acetaminophen 325 mg Tablet 650 MG PO ×2 (09:32→17:35)
[2020-11-08] MEDS: pantoprazole DR 40 mg Tablet PO (09:32)
[2020-11-08 11:28] VITALS: BP 144/73; PULSE 82; RESP 18; TEMP 36.8; O2SAT 96
[2020-11-08 15:34] LABS: Basophils % 0.4 %; Eosinophils # 0.1 10^3/uL (0.0-0.8); Eosinophils % 1.2 %; Hematocrit 26.1 % (37.0-47.0); Hemoglobin 8.3 g/dL (11.5-15.3); Lymphocytes # 1.4 10^3/uL (0.8-4.8); Lymphocytes % 27.9 %; Mean Corpuscular HGB Conc 31.8 g/dL (30.0-36.0); Mean Corpuscular Hemoglobin 29.6 pg (28.0-34.0); Mean Corpuscular Volume 93.2 fL (81-99); Mean Platelet Volume 8.9 fL (7.4-10.4); Monocytes # 0.7 10^3/uL (0.2-0.9); Monocytes % 14.8 %; Neutrophils # 2.58 10^3/uL (1.8-7.7); Neutrophils % 52.8 %; Nucleated Red Blood Cells % 0.8 %; Platelet Count 260 10^3/cmm (130-400); Red Cell Distribution Width 15.1 % (12.1-15.1); White Blood Count 4.9 10^3/uL (4.0-10.0)
[2020-11-08 15:52] VITALS: BP 135/73; PULSE 76; RESP 18; TEMP 36.8; O2SAT 98
[2020-11-08 16:02] LABS: Anion Gap 13.9 (5-19); Blood Urea Nitrogen 13 mg/dL (8-23); Calcium 8.4 mg/dL (8.5-10.5); Carbon Dioxide 24 mmol/L (22-29); Chloride 104 mmol/L (98-107); Glucose 117 mg/dL (65-115); Osmolality Calculated 287 mOsm/kg (285-295); Potassium 3.9 mmol/L (3.5-5.1); Sodium 138 mmol/L (136-145)
--- NOTE | 2020-11-08 16:31 | PM.PN ---
Subjective Subjective: Interval history: Patient was seen and examined this morning , deny chest pain shortness of breath, cough, nausea , vomiting constipation diarrhea, urinary complaints Medications: Reviewed: Yes Vitals/I&O/Wt Last Vital Signs Temp 98.2 F 11/08/20 15:52 Pulse 76 11/08/20 15:52 Resp 18 11/08/20 15:52 BP 135/73 11/08/20 15:52 Pulse Ox 98 11/08/20 15:52 11/08/20 11/08/20 11/08/20 06:59 14:59 22:59 Intake Total 150 / 1350 820 / 820 Output Total 750 / 750 200 / 200 Balance -600 / 600 820 / 820 -200 / 620 Physical Exam Const: COMMON NORMALS: patient oriented x3 HENMT: COMMON NORMALS: normocephalic and atraumatic HEAD & SCALP: normocephalic and atraumatic Resp: COMMON NORMALS: clear to auscultation bilaterally EFFORT & INSPECTION: Yes symmetric chest movement AUSCULTATION: clear to auscultation bilaterally Cardio: COMMON NORMALS: regular rate, regular rhythm, S1 normal heart sound present, S2 normal heart sound present, No gallops present (Cardio), No murmurs present (Cardio), No rub (Cardio) and Peripheral pulses 2+ throughout RATE: regular rate RHYTHM: regular rhythm HEART SOUNDS: S1 normal heart sound present and S2 normal heart sound present PERIPHERAL PULSES: Peripheral pulses 2+ throughout GI: COMMON NORMALS: Normal to inspection, nondistended, normoactive bowel sounds present, Soft to palpation, non-tender, No hepatosplenomegaly present and no masses AUSCULTATION: Yes normoactive bowel sounds PALPATION: Yes Soft to palpation and Yes No hepatosplenomegaly present RECTAL EXAM: deferred Extremity: COMMON NORMALS: no clubbing, cyanosis or edema and no pedal edema Neuro: COMMON NORMALS: patient oriented x3 Urinary Catheter Management^: Danielle: Cath Placed During This Visit: yes, but has since been removed by the nurse Reason for Continuing Indwelling Catheter: Perioperative Use in Selected Surgeries Urinary Catheter Date of Insertion: 11/03/20 Urinary Catheter Time of Insertion: 11:24 Date Urinary Catheter Removed: 11/04/20 Time Urinary Catheter Discontinued: 06:52 Data : 11/08/20 15:13 11/08/20 15:13 Micro: Microbiology 11/07/20 11:09 Blood Culture - Preliminary Blood NEGATIVE TO DATE 11/07/20 11:00 Blood Culture - Preliminary Blood NEGATIVE TO DATE A&P Assessment and plan (1) SIRS (systemic inflammatory response syndrome): Patient currently meets SIRS criteria. Blood culture:NTD Urine Analysis : WNL Lactic acid:1.7 Pro-Rei: ESR CRP. X-ray chest: Emphysematous change and interstitial prominence. No acute airspace disease. We will currently hold on antibiotics. Status: Acute (2) Fracture of hip: Intertrochanteric fracture left hip post ORIF day 3 Pain control. Continue with tramadol in setting of constipation for Crohn's patient. Patient is okay with the same. Remove Danielle. Continue physical therapy. Aspirin for anticoagulation. Status: Acute Qualifiers: Encounter type: initial encounter Fracture type: closed Laterality: left Qualified Code(s): S72.002A - Fracture of unspecified part of neck of left femur, initial encounter for closed fracture (3) Fall: Fall from standing position No history to suggest syncope or arrhythmia Status: Acute (4) Anemia: Hemoglobin stable. Continue with oral and IV supplementation. Vitamin B12 on lower side. Replete with subcu 1000 mcg once. Will discharge on oral supplementation. Continue to monitor. Status: Acute (5) Hematochezia: Most likely secondary to Crohn's disease. Patient reports in the last 1 to 2 weeks occasional blood in stool. She states this happened after an episode of constipation. We will continue to follow expectantly. She already has a colonoscopy scheduled in December. Status: Acute (6) Crohn's disease: She is on Remicade for treatment. Start patient on aggressive bowel regimen. She is requesting glycerin suppository. Status: Acute (7) History of atrial fibrillation: Patient reports no problems with atrial fibrillation in over 20 years. Baseline EKG demonstrates sinus rhythm. Status: Acute (8) Hypothyroidism: Stable. Status: Acute (9) GERD (gastroesophageal reflux disease): Continue proton pump inhibitor Status: Acute Attestations Medical Necessity Statement*: Patient needs to be in hospital for SIRS R/O SEPSIS , Need Negative COVID PCR fOR SNF Placement. 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
--- NOTE | 2020-11-08 17:51 | PC.NURSE ---
Nicole ibarra covid swab sent to lab
[2020-11-08 20:00] VITALS: BP 128/65; PULSE 77; RESP 13; TEMP 36.8; O2SAT 98
[2020-11-08] MEDS: TRAMadol 50 mg Tablet PO (23:46)
[2020-11-09] VITALS: BP 147/77; PULSE 68; RESP 14; TEMP 36.8; O2SAT 99
[2020-11-09 02:45] LABS: Basophils % 0.5 %; Eosinophils # 0.1 10^3/uL (0.0-0.8); Eosinophils % 2.7 %; Hematocrit 24.8 % (37.0-47.0); Hemoglobin 7.9 g/dL (11.5-15.3); Lymphocytes # 1.2 10^3/uL (0.8-4.8); Lymphocytes % 30.1 %; Mean Corpuscular HGB Conc 31.9 g/dL (30.0-36.0); Mean Corpuscular Hemoglobin 29.8 pg (28.0-34.0); Mean Corpuscular Volume 93.6 fL (81-99); Monocytes # 0.7 10^3/uL (0.2-0.9); Neutrophils # 1.85 10^3/uL (1.8-7.7); Neutrophils % 45.7 %; Platelet Count 247 10^3/cmm (130-400); Red Blood Count 2.65 10^6/uL (4.1-5.3); Red Cell Distribution Width 15.2 % (12.1-15.1); White Blood Count 4.1 10^3/uL (4.0-10.0)
[2020-11-09 03:03] LABS: Anion Gap 12.7 (5-19); Blood Urea Nitrogen 12 mg/dL (8-23); Calcium 8.4 mg/dL (8.5-10.5); Carbon Dioxide 24 mmol/L (22-29); Chloride 104 mmol/L (98-107); Glucose 113 mg/dL (65-115); Osmolality Calculated 285 mOsm/kg (285-295); Potassium 3.7 mmol/L (3.5-5.1); Sodium 137 mmol/L (136-145)
[2020-11-09 04:00] VITALS: BP 149/74; PULSE 75; RESP 17; TEMP 36.9; O2SAT 96
[2020-11-09 08:00] VITALS: BP 151/78; PULSE 83; RESP 17; TEMP 36.6; O2SAT 98
[2020-11-09] MEDS: pantoprazole DR 40 mg Tablet PO (09:29)
[2020-11-09] MEDS: levothyroxine 150 mcg Tablet PO (09:29)
[2020-11-09] MEDS: gabapentin 100 mg Capsule PO ×2 (09:29→17:33)
[2020-11-09] MEDS: aspirin 325 mg EC Tablet PO (09:29)
[2020-11-09] MEDS: metoprolol tartrate 25 mg Tablet PO ×2 (09:30→21:15)
[2020-11-09] MEDS: acetaminophen 325 mg Tablet 650 MG PO ×2 (09:32→17:33)
[2020-11-09 12:00] VITALS: BP 163/67; PULSE 84; RESP 17; TEMP 36.8; O2SAT 98
--- NOTE | 2020-11-09 12:41 | P.PN_ITS ---
Subjective Subjective: Interval history: Patient was seen and examined this morning , no acute events overnight. Medications: Reviewed: Yes Vitals/I&O/Wt Last Vital Signs Temp 98.2 F 11/09/20 12:00 Pulse 84 11/09/20 12:00 Resp 17 11/09/20 12:00 BP 163/67 11/09/20 12:00 Pulse Ox 98 11/09/20 12:00 11/08/20 11/09/20 11/09/20 22:59 06:59 14:59 Intake Total 300 / 1120 240 / 240 Output Total 200 / 200 Balance 100 / 920 240 / 240 Physical Exam Const: COMMON NORMALS: patient oriented x3 HENMT: COMMON NORMALS: normocephalic and atraumatic HEAD & SCALP: normocephalic and atraumatic Resp: COMMON NORMALS: clear to auscultation bilaterally EFFORT & INSPECTION: Yes symmetric chest movement AUSCULTATION: clear to auscultation bilaterally Cardio: COMMON NORMALS: regular rate, regular rhythm, S1 normal heart sound present, S2 normal heart sound present, No gallops present (Cardio), No murmurs present (Cardio), No rub (Cardio) and Peripheral pulses 2+ throughout RATE: regular rate RHYTHM: regular rhythm HEART SOUNDS: S1 normal heart sound present and S2 normal heart sound present PERIPHERAL PULSES: Peripheral pulses 2+ throughout GI: COMMON NORMALS: Normal to inspection, nondistended, normoactive bowel sounds present, Soft to palpation, non-tender, No hepatosplenomegaly present and no masses AUSCULTATION: Yes normoactive bowel sounds PALPATION: Yes Soft to palpation and Yes No hepatosplenomegaly present RECTAL EXAM: deferred Extremity: COMMON NORMALS: no clubbing, cyanosis or edema and no pedal edema Neuro: COMMON NORMALS: patient oriented x3 Urinary Catheter Management^: Danielle: Cath Placed During This Visit: yes, but has since been removed by the nurse Reason for Continuing Indwelling Catheter: Perioperative Use in Selected Surgeries Urinary Catheter Date of Insertion: 11/03/20 Urinary Catheter Time of Insertion: 11:24 Date Urinary Catheter Removed: 11/04/20 Time Urinary Catheter Discontinued: 06:52 Data : 11/09/20 02:18 11/09/20 02:18 Micro: Microbiology 11/07/20 11:09 Blood Culture - Preliminary Blood NEGATIVE TO DATE 11/07/20 11:00 Blood Culture - Preliminary Blood NEGATIVE TO DATE A&P Assessment and plan (1) SIRS (systemic inflammatory response syndrome): Patient currently meets SIRS criteria. Blood culture:NTD Urine Analysis : WNL Lactic acid:1.7 Pro-Rei: ESR CRP. Follow COVID PCR X-ray chest: Emphysematous change and interstitial prominence. No acute airspace disease. We will currently hold on antibiotics. Status: Acute (2) Fracture of hip: Intertrochanteric fracture left hip post ORIF day 3 Pain control. Continue with tramadol in setting of constipation for Crohn's patient. Patient is okay with the same. Remove Danielle. Continue physical therapy. Aspirin for anticoagulation. Status: Acute Qualifiers: Encounter type: initial encounter Fracture type: closed Laterality: left Qualified Code(s): S72.002A - Fracture of unspecified part of neck of left femur, initial encounter for closed fracture (3) Fall: Fall from standing position No history to suggest syncope or arrhythmia Status: Acute (4) Anemia: Hemoglobin stable. Continue with oral and IV supplementation. Vitamin B12 on lower side. Replete with subcu 1000 mcg once. Will discharge on oral supplementation. Continue to monitor. Status: Acute (5) Hematochezia: Most likely secondary to Crohn's disease. Patient reports in the last 1 to 2 weeks occasional blood in stool. She states this happened after an episode of constipation. We will continue to follow expectantly. She already has a colonoscopy scheduled in December. Status: Acute (6) Crohn's disease: She is on Remicade for treatment. Start patient on aggressive bowel regimen. She is requesting glycerin suppository. Status: Acute (7) History of atrial fibrillation: Patient reports no problems with atrial fibrillation in over 20 years. Baseline EKG demonstrates sinus rhythm. Status: Acute (8) Hypothyroidism: Stable. Status: Acute (9) GERD (gastroesophageal reflux disease): Continue proton pump inhibitor Status: Acute Attestations Medical Necessity Statement*: Patient is currently awaiting group home placement. 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
[2020-11-09 15:22] LABS: Coronavirus Test Green County Not Detected
[2020-11-09 16:00] VITALS: BP 153/61; PULSE 75; RESP 18; TEMP 36.9; O2SAT 98
[2020-11-09 20:00] VITALS: BP 144/73; PULSE 76; RESP 17; TEMP 36.4; O2SAT 98
[2020-11-09] MEDS: TRAMadol 50 mg Tablet PO (23:39)
[2020-11-10] VITALS: BP 146/70; PULSE 63; RESP 17; TEMP 36.7; O2SAT 96
[2020-11-10 04:00] VITALS: BP 145/63; PULSE 78; RESP 16; TEMP 37.1; O2SAT 96
[2020-11-10 07:21] VITALS: BP 125/73; PULSE 74; RESP 18; TEMP 36.8; O2SAT 98
--- NOTE | 2020-11-10 07:53 | PM.DCS ---
Discharge Providers Date of Admission: 11/03/20 10:03 Date of Discharge: November 10, 2020 Attending Provider at Admission: Vj Shannon MD Attending Provider at Discharge: Benoit Woodruff MD Primary Care Provider: Dereje Bah MD Diagnoses at Discharge Discharge Diagnosis (1) SIRS (systemic inflammatory response syndrome): Status: Acute Permanent problem details: sepsis ruled out (2) Fracture of hip: Status: Acute Qualifiers: Encounter type: initial encounter Fracture type: closed Laterality: left Qualified Code(s): S72.002A - Fracture of unspecified part of neck of left femur, initial encounter for closed fracture (3) Fall: Status: Acute (4) Anemia: Status: Chronic (5) Hematochezia: Status: Resolved (6) Crohn's disease: Status: Chronic (7) History of atrial fibrillation: Status: Chronic (8) Hypothyroidism: Status: Chronic (9) GERD (gastroesophageal reflux disease): Status: Chronic Reason for Visit Reason for Visit: FALL/ HIP FRACTURE Hospital Course Hospital Course 79 year old female who presents to the emergency department with history of falling at home when she was going around her car. She believes she tripped.She was admitted for the management of Intertrochanteric fracture left hip s/p post ORIF. Hospital course was complicated by development of fever sepsis was ruled out. Blood culture: Negative, Urine Analysis : WNL , Lactic acid:1.7, Covid PCR was negative.She was monitored for fever, did not receive any antibiotic.She remained Afebrile for more than 48 hours prior to discharge. Patient responded well to the above medical management and is being discharged to [facility] facility. She will continue to follow orthopedic as an outpatient. Physical Exam Const: COMMON NORMALS: patient oriented x3 HENMT: COMMON NORMALS: normocephalic and atraumatic HEAD & SCALP: normocephalic and atraumatic Resp: COMMON NORMALS: clear to auscultation bilaterally EFFORT & INSPECTION: Yes symmetric chest movement AUSCULTATION: clear to auscultation bilaterally Cardio: COMMON NORMALS: regular rate, regular rhythm, S1 normal heart sound present, S2 normal heart sound present, No gallops present (Cardio), No murmurs present (Cardio), No rub (Cardio) and Peripheral pulses 2+ throughout RATE: regular rate RHYTHM: regular rhythm HEART SOUNDS: S1 normal heart sound present and S2 normal heart sound present PERIPHERAL PULSES: Peripheral pulses 2+ throughout GI: COMMON NORMALS: Normal to inspection, nondistended, normoactive bowel sounds present, Soft to palpation, non-tender, No hepatosplenomegaly present and no masses AUSCULTATION: Yes normoactive bowel sounds PALPATION: Yes Soft to palpation and Yes No hepatosplenomegaly present RECTAL EXAM: deferred Extremity: COMMON NORMALS: no clubbing, cyanosis or edema and no pedal edema Neuro: COMMON NORMALS: patient oriented x3 Urinary Catheter Management^: Danielle: Cath Placed During This Visit: yes, but has since been removed by the nurse Reason for Continuing Indwelling Catheter: Perioperative Use in Selected Surgeries Urinary Catheter Date of Insertion: 11/03/20 Urinary Catheter Time of Insertion: 11:24 Date Urinary Catheter Removed: 11/04/20 Time Urinary Catheter Discontinued: 06:52 Discharge Data Data Completed and Pending: Completed Studies During Hospitalization Category Date Time Status CXRP [XR chest 1V portable [id number]] R outine Exams 11/07/20 10:32 Completed XR chest 1V chata ble [id number] Urgent Exams 11/03/20 09:18 Completed XR hip LT 2-3V wo /w pel* [id number] Rout ine Exams 11/03/20 17:29 Completed XR hip LT 4V wo/w pel [id number] Urgent Exams 11/03/20 09:17 Completed Pending at discharge Category Date Time Status Blood Culture Sta t Lab 11/07/20 11:09 Results Labs from last 24 hours 11/08/20 17:38 Nasal/Oral COVID-1 9 PCR Not detected Vitals: Last Vital Signs Temp 98.3 F 11/10/20 07:21 Pulse 74 11/10/20 07:21 Resp 18 11/10/20 07:21 BP 125/73 11/10/20 07:21 Pulse Ox 98 11/10/20 07:21 Discharge Plan Discharge Patient Disposition: [facility] SN[facility] Condition: Stable Prescriptions: New celecoxib 200 mg Capsule 200 mg PO DAILY Qty: 30 RF: 0 acetaminophen 325 mg Tablet 650 mg PO Q6H PRN (Reason: Mild/Mod Pain Or Temp >/= 101) Qty: 0 RF: 0 tramadol 50 mg Tablet 50 mg PO Q6H PRN (Reason: Moderate Pain) Qty: 30 RF: 0 aspirin 325 mg Tablet,Delayed Release (Dr/Ec) 325 mg PO DAILY Qty: 0 RF: 0 Continued levothyroxine [Synthroid] 150 mcg Tablet 150 mcg PO DAILY RF: 0 gabapentin 100 mg Capsule See Rx Instructions .ROUTE .COMPLEX RF: 0 colestipol 1 gram Tablet 1 g PO BID RF: 0 famotidine 20 mg tablet 20 mg PO BID RF: 0 Co Q-10 100 mg Capsule 100 mg PO DAILY RF: 0 metoprolol tartrate 25 mg tablet 25 mg PO BID RF: 0 Vitamin D3 25 mcg (1,000 unit) Tablet 25 mcg PO DAILY RF: 0 vit C-vit [id number]-mg Capsule 1 cap PO DAILY RF: 0 Discharge Orders: Discharge Order (Routine); Ordered 11/10/20 Ordered By: Benoit Woodruff Referrals: [facility] [place] [Outside] Michelle Melendrez MD [Physician] - 11/23/20 1:15 pm Dereje Bah MD [Primary Care Provider] - 12/22/20 8:45 am Discharge Activity: Increase activity as tolerated, Use walker/crutches as instructed and As per PT/OT instructions Activity Restrictions/Additional Instructions: Weight-bear as tolerated. Ice to left hip. Change dressing as needed, you may maintain the current dressing. Discharge Attestations Time Spent in Discharge Care*: less than 30 min Specific Discharge Activities: educating patient, educating and/or supporting family/caregiver, discussing with pcp/other providers, discussing with protective services case worker/social workers/dc planners, documenting/other paperwork and evaluating patient/reviewing data Status at Discharge: Cognitive status at discharge: cognitively intact, Behavioral status at discharge: cooperative, Functional status at discharge: other assisted ambulation Overall status at discharge: patient is back to baseline Quality Metrics Clinical Quality Measures During this hospital stay, did patient experience: None Coding Level of Care Code Acute [facility] DC note Diagnoses SIRS (systemic inflammatory response syndrome) R65.10 Fracture of hip S72.002A Encounter type: initial encounter Fracture type: closed Laterality: left Fall W19.XXXA Anemia D64.9 Hematochezia K92.1 Crohn's disease K50.90 History of atrial fibrillation Z86.79 Hypothyroidism E03.9 GERD (gastroesophageal reflux disease) K21.9
[2020-11-10] MEDS: metoprolol tartrate 25 mg Tablet PO (08:07)
[2020-11-10] MEDS: acetaminophen 325 mg Tablet 650 MG PO (08:07)
[2020-11-10] MEDS: gabapentin 100 mg Capsule PO (08:07)
[2020-11-10] MEDS: levothyroxine 150 mcg Tablet PO (08:07)
[2020-11-10] MEDS: aspirin 325 mg EC Tablet PO (08:07)
[2020-11-10] MEDS: pantoprazole DR 40 mg Tablet PO (08:08)
--- NOTE | 2020-11-10 09:29 | DCPLANNER ---
Pg 2 of IM updated and reviewed with pt. She is happy to be going to [facility] today.
--- NOTE | 2020-11-10 10:54 | PC.NURSE ---
1024: Report called to Denisse Friend RN at [facility]. Denisse states in report that the patient will be quarantined for 14 days upon admission to rule out COVID-19 exposure/disease. The patient and family had not been informed of this, so I called and spoke with Fredi Manning, patient's son and informed him of this. He became upset, stating that it was ridiculous he wouldn't be able to see his mother for 14 days after admission to [facility]. I went in and spoke to the patient and she wasn't aware of this, however stated it would be fine . I called and spoke with Jonathan Miranda, RN legal nurse consultant for [facility] and he states that window visits will be allowed during the 14 day quarantine. [facility] called and stated they would need to send their ice delivery driver on for now and would be back around 1230. I called and spoke with patient's son, Fredi, and informed him of the delay and that he could come to the floor and visit with her until she discharges. He verbalizes understanding and states he appreciates that and the window visits. Patient will remain inpatient until [facility] is able to transport patient around 1230.
--- NOTE | 2020-11-10 12:19 | PC.NURSE ---
Pt d/c'd from the floor via [facility] transport at 1215 to [facility].
[2020-11-10 15:04] VITALS: BP 125/73; PULSE 74; RESP 18; TEMP 36.8; O2SAT 98
--- NOTE | 2020-11-10 15:07 | PC.NURSE ---
Discharge Patient educated on discharge instructions and medications. IV removed with catheter in tact with pressure dressing applied. Patient transported to [facility] via EMS
== END 2020-11-10 11:45 | disposition skilled nursing facility (03) | DRG 481 ==
LOC: ER 10:03 → MEDSURG 11:17
PROVIDERS: Specialist; Student in an Organized Health Care Education/Training Program; Admitting Provider Internal Medicine; Emergency Provider Family Medicine; PCP Family Medicine; Visit Provider Internal Medicine
PROC: 0QS706Z Reposition Left Upper Femur with Intramedullary Internal Fixation Device, Open Approach (ICD-10-PCS; CPT 27245; principal; 2020-11-03 16:00)
DX: S72.142A Displaced intertrochanteric fracture of left femur, initial encounter for closed fracture (principal); K50.90 Crohn's disease, unspecified, without complications; K92.1 Melena; R65.10 Systemic inflammatory response syndrome (SIRS) of non-infectious origin without acute organ dysfunction; W01.0XXA Fall on same level from slipping, tripping and stumbling without subsequent striking against object, initial encounter; M19.90 Unspecified osteoarthritis, unspecified site; F32.9 Major depressive disorder, single episode, unspecified; K21.9 Gastro-esophageal reflux disease without esophagitis; I48.91 Unspecified atrial fibrillation; E03.9 Hypothyroidism, unspecified; G62.9 Polyneuropathy, unspecified; Z90.49 Acquired absence of other specified parts of digestive tract; Z87.891 Personal history of nicotine dependence; D64.9 Anemia, unspecified
CPT/HCPCS: 36415; 51702; 71045; 73502; 73503; 76000; 80048; 80053; 81001; 82607; 82746; 83540; 83550; 83605; 84443; 85025; 85730; 86140; 87040; 87635; 93005; 96365; 96372; 96375; 96376; 97110; 97116; 97161; 97165; 97530; 97535; 99285; C1713; J0690; J1170; J2370; J2405; J2704; J3420; J3490; J7030

== ENCOUNTER → 2020-11-23 13:16 | Outpatient (BNVA) | payer MEDICARE, SELFPAY | PROVIDERS: PCP Family Medicine; Visit Provider Specialist | DX: S72.142A Displaced intertrochanteric fracture of left femur, initial encounter for closed fracture (principal); X58.XXXA Exposure to other specified factors, initial encounter | CPT/HCPCS: 73502 ==

== ENCOUNTER → 2021-01-18 10:14 | Outpatient (BNVA) | payer MEDICARE, SELFPAY | PROVIDERS: PCP Family Medicine; Visit Provider Specialist | DX: Z98.890 Other specified postprocedural states; S72.142D Displaced intertrochanteric fracture of left femur, subsequent encounter for closed fracture with routine healing; W01.0XXD Fall on same level from slipping, tripping and stumbling without subsequent striking against object, subsequent encounter | CPT/HCPCS: 73502 ==

== ENCOUNTER 2021-05-18 10:45 | Outpatient (CLI) | payer MEDICARE, SELFPAY ==
--- NOTE | 2021-05-18 10:59 | MM_ITS ---
WS: [id number] BILATERAL DIGITAL SCREENING MAMMOGRAPHY WITH CAD CLINICAL INFORMATION: SCREENING HISTORY: Screening mammogram. No current complaints. COMPARISON: June 01, 2019 TECHNIQUE: Bilateral CC and MLO views. FINDINGS: Scattered fibroglandular densities bilaterally. Dystrophic calcification right breast. Vascular calci fication. A few punctate calcifications. No suspicious focal mass, asymmetry, calcifications, or arch itectural distortion. No evidence of malignancy. MM/[id number] IMPRESSION: BI-RADS: 2-Benign FOLLOW UP: 1 Year Follow-up Recommend return to annual screening mammography.
== END 2021-05-18 10:46 | disposition home or self-care (01) ==
LOC: RADSHAW 10:50
PROVIDERS: PCP Family Medicine; Visit Provider Family Medicine
DX: Z12.31 Encounter for screening mammogram for malignant neoplasm of breast (principal)
CPT/HCPCS: 77067

== ENCOUNTER → 2021-12-12 08:20 | Day surgery (SDC) | payer MEDICARE, SELFPAY ==
[2021-12-12 08:52] VITALS: BP 155/78; PULSE 65; RESP 18; TEMP 36.1; O2SAT 99
[2021-12-12 09:17] LABS: Blood Urea Nitrogen 15 mg/dL (8-23); Calcium 8.6 mg/dL (8.5-10.5)
--- NOTE | 2021-12-12 09:30 | PC.NURSE ---
Pt to GI lab for Reclast infusion. Calcium level noted at 8.6. Creatinine clearance noted at 39.15. Reclast infusion given as ordered.
== END ==
PROVIDERS: PCP Family Medicine; Visit Provider Family Medicine
DX: M81.0 Age-related osteoporosis without current pathological fracture (principal)
CPT/HCPCS: 36415; 82310; 82565; 84520; 96365; J3489

== ENCOUNTER → 2022-07-24 14:26 | Outpatient (BNVA) | payer MEDICARE, SELFPAY | PROVIDERS: PCP Family Medicine; Visit Provider Podiatrist Foot & Ankle Surgery | DX: M10.9 Gout, unspecified (principal); M79.671 Pain in right foot; M76.72 Peroneal tendinitis, left leg | CPT/HCPCS: 20600; 73610; 73630; 99204 ==

== ENCOUNTER → 2022-08-22 08:36 | Outpatient (BNVA) | payer MEDICARE, SELFPAY | PROVIDERS: PCP Family Medicine; Visit Provider Podiatrist Foot & Ankle Surgery | DX: M76.72 Peroneal tendinitis, left leg (principal); M10.9 Gout, unspecified | CPT/HCPCS: 99213 ==

== ENCOUNTER 2022-10-22 12:30 | Oncology outpatient (recurring) (ONCR) | payer MEDICARE, SELFPAY ==
[2022-10-08] VITALS (7 sets, daily range): BP systolic 128–155; BP diastolic 67–74; PULSE 51–95; RESP 16; TEMP 36–36.8; O2SAT 98–99
[2022-10-08] MEDS: sodium chloride 0.9% 250 ML 75 ML IV (12:40)
[2022-10-08] MEDS: diphenhydrAMINE 25 mg Capsule PO (12:41)
[2022-10-08] MEDS: acetaminophen 325 mg Tablet 650 MG PO (12:41)
[2022-10-22] VITALS (8 sets, daily range): BP systolic 145–180; BP diastolic 64–79; PULSE 50–72; RESP 16; TEMP 35.8–36.3; O2SAT 97–99
[2022-10-22] MEDS: acetaminophen 325 mg Tablet 650 MG PO (12:45)
[2022-10-22] MEDS: sodium chloride 0.9% 250 ML 75 ML IV (12:45)
[2022-10-22] MEDS: diphenhydrAMINE 25 mg Capsule PO (12:45)
== END 2022-11-02 23:59 | disposition home or self-care (01) ==
PROVIDERS: PCP Family Medicine; Visit Provider Internal Medicine Gastroenterology
DX: K50.90 Crohn's disease, unspecified, without complications (principal)
CPT/HCPCS: 96361; 96365; 96366; J1745; J7050

== ENCOUNTER → 2022-11-14 08:17 | Outpatient (BNVA) | payer MEDICARE, SELFPAY | PROVIDERS: PCP Family Medicine; Visit Provider Dermatology | DX: L57.0 Actinic keratosis (principal); L57.8 Other skin changes due to chronic exposure to nonionizing radiation; D18.01 Hemangioma of skin and subcutaneous tissue; Z85.828 Personal history of other malignant neoplasm of skin; Z87.891 Personal history of nicotine dependence | CPT/HCPCS: 17000; 17003; 99213 ==

== ENCOUNTER 2023-01-02 13:33 | Outpatient (CLI) | payer MEDICARE, SELFPAY ==
--- NOTE | 2023-01-02 13:39 | MM_ITS ---
WS: [id number] BILATERAL SCREENING DIGITAL TOMOSYNTHESIS MAMMOGRAM WITH CAD HISTORY: SCREENING COMPARISON: 05/18/2021, 06/01/2019 and 03/14/2018 Bilateral CC and MLO views with tomosynthesis and synthetic mammography submitted. Computer aided det ection analyzed. Breast composition: There are scattered areas of fibroglandular density. No suspicious masses, microc alcifications or architectural distortion. Scattered calcifications and arterial calcifications and a symmetries are stable. IMPRESSION: MM/[place] [id number] BI-RADS: 2-Benign FOLLOW UP: 1 Year Follow-up
== END 2023-01-02 13:34 | disposition home or self-care (01) ==
PROVIDERS: PCP Family Medicine; Visit Provider Family Medicine
DX: Z12.31 Encounter for screening mammogram for malignant neoplasm of breast (principal)
CPT/HCPCS: 77063; 77067

== ENCOUNTER 2023-01-15 08:28 | Oncology outpatient (recurring) (ONCR) | payer MEDICARE, SELFPAY ==
[2023-01-15] VITALS (8 sets, daily range): BP systolic 134–159; BP diastolic 70–84; PULSE 52–65; RESP 16; TEMP 36.2–36.6; O2SAT 97–99
[2023-01-15] MEDS: diphenhydrAMINE 25 mg Capsule PO (08:52)
[2023-01-15] MEDS: sodium chloride 0.9% 250 ML 75 ML IV (08:52)
[2023-01-15] MEDS: acetaminophen 325 mg Tablet 650 MG PO (08:53)
[2023-01-15] MEDS: SODIUM CHLORIDE 0.9% IV (09:15)
[2023-01-15] MEDS: INFLIXIMAB IV (09:15)
== END 2023-02-02 23:59 | disposition home or self-care (01) ==
PROVIDERS: PCP Family Medicine; Visit Provider Internal Medicine Gastroenterology
DX: K50.90 Crohn's disease, unspecified, without complications (principal); Z53.9 Procedure and treatment not carried out, unspecified reason
CPT/HCPCS: 96413; 96415; J1745; J7050

== ENCOUNTER 2023-02-25 07:42 | Oncology outpatient (recurring) (ONCR) | payer MEDICARE, SELFPAY ==
[2023-02-25 08:10] VITALS: BP 178/76; PULSE 60; RESP 16; TEMP 36.4; O2SAT 99
[2023-02-25] MEDS: zoledronic acid 5 MG in empty flexible container 1 EACH 400 MG IV (08:30)
[2023-02-25 08:55] VITALS: BP 176/68; PULSE 55; RESP 16; TEMP 36.4; O2SAT 99
== END 2023-03-05 23:59 | disposition home or self-care (01) ==
LOC: ONCMED 07:43
PROVIDERS: PCP Family Medicine; Visit Provider Internal Medicine Gastroenterology
DX: K50.90 Crohn's disease, unspecified, without complications (principal)
CPT/HCPCS: 96365; J3489

== ENCOUNTER 2023-03-12 08:45 | Oncology outpatient (recurring) (ONCR) | payer MEDICARE, SELFPAY ==
[2023-03-12] VITALS (8 sets, daily range): BP systolic 122–149; BP diastolic 63–71; PULSE 51–68; RESP 16; TEMP 35.8–36.3; O2SAT 97–99
[2023-03-12] MEDS: sodium chloride 0.9% 250 ML 75 ML IV (09:18)
[2023-03-12] MEDS: acetaminophen 325 mg Tablet 650 MG PO (09:21)
[2023-03-12] MEDS: diphenhydrAMINE 25 mg Capsule PO (09:21)
== END 2023-04-04 23:59 | disposition home or self-care (01) ==
LOC: ONCMED 08:45
PROVIDERS: PCP Family Medicine; Visit Provider Internal Medicine Gastroenterology
DX: K50.90 Crohn's disease, unspecified, without complications (principal)
CPT/HCPCS: 96413; 96415; J1745; J7050

== ENCOUNTER 2023-05-07 11:20 | Oncology outpatient (recurring) (ONCR) | payer MEDICARE, SELFPAY ==
[2023-05-07] VITALS (7 sets, daily range): BP systolic 129–146; BP diastolic 59–64; PULSE 54–64; RESP 16; TEMP 36–36.6; O2SAT 99
[2023-05-07] MEDS: diphenhydrAMINE 25 mg Capsule PO (10:42)
[2023-05-07] MEDS: acetaminophen 325 mg Tablet 650 MG PO (10:42)
[2023-05-07] MEDS: sodium chloride 0.9% 250 ML 75 ML IV (10:42)
== END 2023-06-05 23:59 | disposition home or self-care (01) ==
PROVIDERS: PCP Family Medicine; Visit Provider Internal Medicine Gastroenterology
DX: K50.90 Crohn's disease, unspecified, without complications (principal)
CPT/HCPCS: 96413; 96415; J1745; J7050

== ENCOUNTER 2023-07-02 10:34 | Oncology outpatient (recurring) (ONCR) | payer MEDICARE, SELFPAY ==
[2023-07-02] MEDS: acetaminophen 325 mg Tablet 650 MG PO (11:05)
[2023-07-02] MEDS: diphenhydrAMINE 25 mg Capsule PO (11:05)
[2023-07-02] MEDS: INFLIXIMAB IV (11:40)
[2023-07-02] MEDS: SODIUM CHLORIDE 0.9% IV (11:40)
[2023-07-02 13:53] VITALS: BP 163/70; PULSE 58; RESP 17; TEMP 36.1; O2SAT 99
== END 2023-07-04 23:59 | disposition home or self-care (01) ==
PROVIDERS: PCP Family Medicine; Visit Provider Internal Medicine Gastroenterology
DX: K50.90 Crohn's disease, unspecified, without complications (principal)
CPT/HCPCS: 96413; 96415; J1745; J7050

== ENCOUNTER 2023-08-27 07:46 | Oncology outpatient (recurring) (ONCR) | payer MEDICARE, SELFPAY ==
[2023-08-27] VITALS (7 sets, daily range): BP systolic 113–165; BP diastolic 23–76; PULSE 52–62; RESP 16; TEMP 36.2–36.6; O2SAT 98–100
[2023-08-27] MEDS: acetaminophen 325 mg Tablet 650 MG PO (09:52)
[2023-08-27] MEDS: diphenhydrAMINE 25 mg Capsule PO (09:52)
[2023-08-27] MEDS: INFLIXIMAB IV (10:05)
[2023-08-27] MEDS: SODIUM CHLORIDE 0.9% IV (10:05)
== END 2023-09-03 23:59 | disposition home or self-care (01) ==
PROVIDERS: PCP Family Medicine; Visit Provider Internal Medicine Gastroenterology
DX: K50.90 Crohn's disease, unspecified, without complications (principal)
CPT/HCPCS: 96413; 96415; J1745; J7050

== ENCOUNTER 2023-11-14 08:39 | Oncology outpatient (recurring) (ONCR) | payer MEDICARE, SELFPAY ==
[2023-11-14] VITALS (7 sets, daily range): BP systolic 132–145; BP diastolic 59–73; PULSE 50–59; RESP 16; TEMP 36.3–36.6; O2SAT 94–100
[2023-11-14] MEDS: diphenhydrAMINE 25 mg Capsule PO (09:31)
[2023-11-14] MEDS: acetaminophen 325 mg Tablet 650 MG PO (09:31)
[2023-11-14] MEDS: SODIUM CHLORIDE 0.9% IV (09:55)
[2023-11-14] MEDS: INFLIXIMAB IV (09:55)
== END 2023-12-04 23:59 | disposition home or self-care (01) ==
PROVIDERS: PCP Family Medicine; Visit Provider Internal Medicine Gastroenterology
DX: K50.90 Crohn's disease, unspecified, without complications (principal)
CPT/HCPCS: 96375; 96413; 96415; A4222; J1745; J7050

== ENCOUNTER 2024-01-16 08:37 | Oncology outpatient (recurring) (ONCR) | payer MEDICARE, SELFPAY ==
[2024-01-16] MEDS: sodium chloride 0.9% 250 ML 75 ML IV (09:18)
[2024-01-16] MEDS: diphenhydrAMINE 25 mg Capsule PO (09:19)
[2024-01-16] MEDS: acetaminophen 325 mg Tablet 650 MG PO (09:19)
[2024-01-16] MEDS: INFLIXIMAB IV (09:30)
[2024-01-16] MEDS: SODIUM CHLORIDE 0.9% IV (09:30)
[2024-01-16 09:34] VITALS: BP 161/69; PULSE 52; TEMP 35.9; O2SAT 95
[2024-01-16 09:45] VITALS: BP 151/71; PULSE 48; RESP 16; TEMP 36
[2024-01-16 10:00] VITALS: PULSE 50; RESP 16; TEMP 36.6; O2SAT 99
[2024-01-16 10:20] VITALS: BP 157/64; PULSE 50; RESP 16; TEMP 36.6; O2SAT 99
[2024-01-16 10:35] VITALS: BP 164/68; PULSE 50; RESP 16; TEMP 36.1; O2SAT 99
[2024-01-16 11:05] VITALS: BP 164/83; PULSE 48; RESP 16; TEMP 36.2; O2SAT 100
== END 2024-02-03 23:59 | disposition home or self-care (01) ==
PROVIDERS: PCP Family Medicine; Visit Provider Internal Medicine Gastroenterology
DX: K50.90 Crohn's disease, unspecified, without complications (principal); Z79.899 Other long term (current) drug therapy
CPT/HCPCS: 96413; 96415; A4222; J1745; J7050

== ENCOUNTER 2024-04-21 07:50 | Oncology outpatient (recurring) (ONCR) | payer MEDICARE, SELFPAY ==
[2024-04-21 08:36] VITALS: BP 159/73; PULSE 53; RESP 18; TEMP 36.5; O2SAT 98
[2024-04-21 10:36] VITALS: BP 120/78; PULSE 74; RESP 18; TEMP 36.6; O2SAT 97
== END 2024-05-05 23:59 | disposition home or self-care (01) ==
PROVIDERS: PCP Family Medicine; Visit Provider Internal Medicine Gastroenterology
DX: K50.919 Crohn's disease, unspecified, with unspecified complications (principal); Z79.899 Other long term (current) drug therapy
CPT/HCPCS: 96413; J1745; J7050

== ENCOUNTER 2024-05-15 20:07 | Emergency (ER) | payer MEDICARE, SELFPAY ==
[2024-05-15 20:08] VITALS: BP 136/91; PULSE 77; RESP 18; TEMP 36.6; O2SAT 97
--- NOTE | 2024-05-15 20:13 | CTR_ITS ---
PROCEDURE INFORMATION: Exam: CT Abdomen And Pelvis With Contrast Exam date and time: 05/15/2024 8:35 PM Age: 83 years old Clinical indication: Abdominal pain; Generalized; Prior surgery; Surgery date: 6+ months; Surgery type: Bowel resection. Hemicolectomy. Appy. Hysterectomy. Patient HX: Abd pain with constipation x 4 days. History of recurrent sbo due to adhesions. ; Additional info: Abd pain/constipation TECHNIQUE: Imaging protocol: Computed tomography of the abdomen and pelvis with contrast. Radiation optimization: All CT scans at this facility use at least one of these dose optimization techniques: automated exposure control; mA and/or kV adjustment per patient size (includes targeted exams where dose is matched to clinical indication); or iterative reconstruction. Contrast material: OMNI 350; Contrast volume: 80 ml; Contrast route: INTRAVENOUS (IV); COMPARISON: CT abdomen pelvis wo con [id number] 01/31/2020 11:19 PM RADIATION DOSE METRICS: Total DLP (mGy-cm): 371.74 FINDINGS: Liver: Normal. No mass. Gallbladder and biliary ducts: The gallbladder is surgically absent. Pancreas: Normal. No ductal dilation. Spleen: Multiple punctate calcifications throughout the spleen compatible with prior granulomatous exposure. Adrenal glands: Normal. No mass. Kidneys and ureters: Bilateral cortical renal scarring. Stomach and bowel: There is abnormal wall thickening with abnormal enhancement inflammation involving a loop of distal small bowel. There is abnormal mucosal enhancement involving the rectosigmoid colon. Air-fluid levels present throughout the colon. There are multiple mildly prominent loops of small bowel. No signs of obstruction. Changes from a right colectomy present. Appendix: No evidence of appendicitis. Intraperitoneal space: Unremarkable. No free air. No significant fluid collection. Vasculature: Calcific plaque involves the abdominal aorta and iliac arteries. Lymph nodes: Unremarkable. No enlarged lymph nodes. Urinary bladder: Unremarkable as visualized. Reproductive: The uterus is surgically absent. Bones/joints: The bone density is decreased. Soft tissues: Unremarkable. CT/CT abdomen pelvis w con* [id number] IMPRESSION: 1. Findings compatible with an enterocolitis. 2. Atherosclerosis. 3. Postoperative changes as detailed.
--- NOTE | 2024-05-15 20:14 | ED_ITS ---
HPI - Abdominal Pain 2 General: Chief Complaint: Abdominal Pain Stated Complaint: abd pain, constipation x 4 days Time Seen by Provider: 05/15/24 20:08 Source: patient and EMS Mode of arrival: EMS Limitations: no limitations History of Present Illness: 83-year-old female who states that she h as been having constipation over abdominal pain over the last 4 days. States that she has had a history of a colostomy she has had it reversed she states she has had adhesions in the past and is concerned about bowel obstruction. States pain is diffuse in nature rates it a 2 out of 10 is very mild she denies any vomiting denies any fevers. Associated Symptoms: Reports constipation; Denies chills, diarrhea, dysuria, fever(s), nausea and vomiting Related Data Home Medications Medication Instructions Recorded Confirmed colestipol 1 gram tablet 1 g PO BID 02/01/20 08/22/22 gabapentin 100 mg capsule See Rx Instructions .Route .COMPLEX 02/01/20 08/22/22 levothyroxine 150 mcg tablet 150 mcg PO DAILY 02/01/20 08/22/22 (Synthroid) cholecalciferol (vitamin D3) 25 25 mcg PO DAILY 11/03/20 08/22/22 mcg (1,000 unit) tablet (Vitamin D3) famotidine 20 mg tablet 20 mg PO BID 11/03/20 08/22/22 metoprolol tartrate 25 mg tablet 25 mg PO BID 11/03/20 08/22/22 vit C-vit F-wguomh-cqggwqsa-omega 1 cap PO DAILY 11/03/20 08/22/22 3 100 mg-15 unit-2 mg-100 mg capsule infliximab 100 mg intravenous IV 04/11/22 08/22/22 solution (Remicade) Previous Rx's Medication Instructions Recorded acetaminophen 325 mg tablet 650 mg (2 x 325 mg) PO Q6H PRN 11/04/20 Mild/Mod Pain Or Temp >/= 101 #0 tabs aspirin 325 mg tablet,delayed 325 mg PO DAILY #0 tabs 11/04/20 release tramadol 50 mg tablet 50 mg PO Q6H PRN Moderate Pain #30 11/04/20 tabs mupirocin 2 % topical ointment 1 applic topical BID #22 grams 03/16/22 colchicine 0.6 mg tablet See Rx Instructions .Route 07/24/22 .COMPLEX #3 tabs ciprofloxacin HCl 500 mg tablet 500 mg PO BID #14 tabs 05/15/24 (Cipro) metronidazole 500 mg tablet 500 mg PO Q8H 7 days #21 tabs 05/15/24 ondansetron 4 mg disintegrating 4 mg PO Q6H PRN nausea and 05/15/24 tablet vomiting #14 tabs Allergies Allergy/AdvReac Type Severity Reaction Status Date / Time hydrocodone Allergy Unknown Verified 08/22/22 08:37 morphine Allergy Unknown Verified 08/22/22 08:37 Sulfa (Sulfonamide Allergy Unknown Verified 08/22/22 08:37 Antibiotics) Review of Systems 2 Const: Denies: fever(s), chills, body aches or change in appetite ENMT: Denies: throat pain or dental pain Card: Denies: chest pain Resp: Denies: dyspnea GI: Reports: abdominal pain and constipation; Denies: nausea, vomiting or diarrhea : Denies: dysuria Musc: Denies: neck pain or back pain Skin/Breast: Denies: rash Neuro: Denies: headache(s) PFSH ED 2 PFSH: Medical History History of nonmelanoma skin cancer SIRS (systemic inflammatory response syndrome) sepsis ruled out Closed intertrochanteric fracture of left hip Hematochezia Anemia Fall Peripheral neuropathy History of atrial fibrillation History of small bowel obstruction GERD (gastroesophageal reflux disease) Fracture of hip Crohn's disease Thrombocytosis Perforation of cecum Degenerative arthritis Depression Hypothyroidism Pseudomembranous colitis Inflammatory bowel disease Colostomy present Surgical History S/P ORIF (open reduction internal fixation) fracture Left arm fracture H/O: hysterectomy History of appendectomy Injury of superior mesenteric vein Status post repair during cecum ectomy and ileostomy placement with transverse mucous fistula H/O right hemicolectomy Right hemicolectomy with ileostomy distal colon mucous fistula H/O exploratory laparotomy History of bowel resection Family History Other CAD (coronary artery disease) Stroke Social History Smoking and tobacco/nicotine status: never used tobacco/nicotine Quit status (tobacco/nicotine): has quit using Former quit date comment: Quit 1999 Alcohol intake: current Alcohol intake frequency: few times a month Substance/Drug Use: never Household members: spouse Housing: House Current occupational status: retired 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[employer] Physical Exam 2 Const: COMMON NORMALS: no acute distress, patient oriented x3 and healthy appearing HENMT: COMMON NORMALS: normocephalic and atraumatic HEAD & SCALP: n ormocephalic and atraumatic Neck/C-Spine: COMMON NORMALS: full ROM and supple Chest: COMMONS NORMALS: normal inspection of the chest Resp: COMMON NORMALS: normal respiratory effort, No retractions, No use of accessory muscles and clear to auscultation bilaterally AUSCULTATION: clear to auscultation bilaterally Cardio: COMMON NORMALS: regular rate, regular rhythm and No murmurs present (Cardio) RATE: regular rate RHYTHM: regular rhythm GI: COMMON NORMALS: Normal to inspection, nondistended, normoactive bowel sounds present, Soft to palpation and no masses PALPATION: Yes Soft to palpation OTHER: diffuse mild tenderness Extremity: COMMON NORMALS: normal to inspection and full ROM Neuro: COMMON NORMALS: patient oriented x3, moves all extremities and no focal motor deficits Psych: COMMON NORMALS: mental status grossly normal, Normal thought process present and cooperative THOUGHT PROCESS: Normal thought process present Skin: COMMON NORMALS: no rashes or lesions noted and no wounds GENERAL SKIN EXAM: no rashes or lesions noted Course 2 Vital Signs: Vital signs: Vital Signs Temperature 98 F 05/15/24 20:08 Pulse Rate 72 05/15/24 21:15 Respiratory Rate 16 05/15/24 21:15 Blood Pressure 153/72 05/15/24 21:15 Pulse Oximetry 98 05/15/24 21:15 Oxygen Delivery Me thod Room Air 05/15/24 21:15 MDM - Abdominal Pain Medical Decision Making Patient presents for abdominal pain she is found to have a colitis on her CT she feels improved here we will prescribe her antibiotics along with nausea medicine has no signs of small bowel obstruction she is follow-up with PCP return if worsening. Medical Records I reviewed the patient's medical records. Lab Data I reviewed the patient's lab results. 05/15/24 20:24 05/15/24 20:24 Labs/Radiology: Radiology Impressions Abdomen/Pelvis CT 05/15/24 20:13 IMPRESSION: 1. Findings compatible with an enterocolitis. 2. Atherosclerosis. 3. Postoperative changes as detailed. Laboratory Results WBC 10.17 10^3/uL (3.29-11.43) 05/15/24 20: RBC 5.33 10^6/uL (3.85-5.65) 05/15/24 20:24 Hgb 15.30 g/dL (11.27-16.99) 05/15/24 20: Hct 47.5 % (36-47) H 05/15/24: MCV 89.1 fl (85-98) 05/15/24 20: MCH 28.7 pg (27-33) 05/15/24: MCHC 32.2 g/dL (30-55) 05/15/24: RDW 13.9 % (12.1-15.1) 05/15/24: Plt Count 343 10^3/cmm (157-399) 05/15/24: MPV 9.6 fL (7.4-10.4) 05/15/24: Neut % (Auto) 54.8 % 05/15/24: Lymph % (Auto) 37.3 % 05/15/24: [place] % (Auto) 6.1 % 05/15/24: Eos % (Auto) 0.7 % 05/15/24: Baso % (Auto) 0.6 % 05/15/24: Neut # (Auto) 5.58 10^3/uL (1.8-7.7) 05/15/24: Lymph # (Auto) 3.8 10^3/uL (0.8-4.8) 05/15/24:24 [place] # (Auto) 0.6 10^3/uL (0.2-0.9) 05/15/24: Eos # (Auto) 0.1 10^3/uL (0.0-0.8) 05/15/24 20: Baso # (Auto) 0.1 10^3/uL (0.0-0.1) 05/15/24: Nucleated RBC % (auto) 0 % 05/15/24:24 Nucleated RBCs # 0.0 /100WBC 05/15/24 20:24 Sodium 132 mmol/L (136-145) L 05/15/24 20:24 Potassium 4.1 mmol/L (3.5-5.1) 05/15/24 20:24 Chloride 100 mmol/L (98-107) 05/15/24 20:24 Carbon Dioxide 15 mmol/L (22-29) L 05/15/24 20:24 Anion Gap 21.1 (5-19) H 05/15/24 20:24 BUN 31 mg/dL (8-23) H 05/15/24 20:24 Creatinine 1.7 mg/dL (0.5-0.9) H 05/15/24 20:24 GFR Calculation Not Reportable 05/15/24 20:24 Glucose 136 mg/dL (65-115) H 05/15/24 20:24 Calculated Osmolality 283 mOsm/kg (285-295) L 05/15/24 20:24 Calcium 9.7 mg/dL (8.5-10.5) 05/15/24 20:24 Total Bilirubin 1.1 mg/dL (0.15-1.2) 05/15/24 20:24 AST 43 U/L (0-32) H 05/15/24 20:24 ALT 71 U/L (0-33) H 05/15/24 20:24 Alkaline Phosphatase 106 U/L (35-105) H 05/15/24 20:24 Total Protein 8.4 g/dL (6.6-8.7) 05/15/24 20:24 Albumin 4.2 g/dL (3.5-5.2) 05/15/24 20:24 Globulin 4.2 g/dL (1.3-4.6) 05/15/24 20:24 Lipase 45 U/L (13-60) 05/15/24 20:24 All radiology interpretation(s) finalized by discharge Discharge Plan Discharge Patient Disposition: Home Clinical Impression: Colitis, Abdominal pain Condition: Stable Prescriptions: New metronidazole 500 mg tablet 500 mg PO Q8H 7 Days Qty: 21 0RF ciprofloxacin HCl [Cipro] 500 mg tablet 500 mg PO BID Qty: 14 0RF ondansetron 4 mg tablet,disintegrating 4 mg PO Q6H PRN (Reason: nausea and vomiting) Qty: 14 0RF No Action mupirocin 2 % ointment 1 applic topical BID Qty: 22 2RF Rx Instructions: Apply to affected area until healed infliximab [Remicade] 100 mg recon soln IV colchicine 0.6 mg tablet See Rx Instructions .ROUTE .COMPLEX Qty: 3 0RF Dose Instruction: TAKE 2 TABLETS BY MOUTH NOW, THAN TAKE 1 TAB 1 HOUR LATER Rx Instructions: TAKE 2 TABLETS BY MOUTH NOW, THAN TAKE 1 TAB 1 HOUR LATER levothyroxine [Synthroid] 150 mcg Tablet 150 mcg PO DAILY gabapentin 100 mg Capsule See Rx Instructions .ROUTE .COMPLEX Rx Instructions: 100 mg orally in the morning/ 300 mg orally in the evening colestipol 1 gram Tablet 1 g PO BID famotidine 20 mg tablet 20 mg PO BID metoprolol tartrate 25 mg tablet 25 mg PO BID cholecalciferol (vitamin D3) [Vitamin D3] 25 mcg (1,000 unit) Tablet 25 mcg PO DAILY vit C-vit T-vseuwq-vej-om-3 [id number] lm-wlbz-bi-mg Capsule 1 cap PO DAILY acetaminophen 325 mg Tablet 650 mg PO Q6H PRN (Reason: Mild/Mod Pain Or Temp >/= 101) Qty: 0 0RF tramadol 50 mg Tablet 50 mg PO Q6H PRN (Reason: Moderate Pain) Qty: 30 0RF aspirin 325 mg Tablet,Delayed Release (Dr/Ec) 325 mg PO DAILY Qty: 0 0RF Discharge Orders: Discharge ED (Routine); Ordered 05/15/24 Ordered By: Shubham Mccord Referrals: Dereje Bah MD [Primary Care Provider] - 4-7 days Discharge Diet: Advance as tolerated Discharge Activity: Resume usual activity Patient Instructions: Abdominal Pain (ED), Colitis (ED) Coding Level of Care Code ED [employer] T[employer] for [employer] Torres
[2024-05-15 20:30] VITALS: BP 136/91; PULSE 81; O2SAT 100
[2024-05-15 20:30] LABS: Basophils # 0.1 10^3/uL (0.0-0.1); Basophils % 0.6 %; Eosinophils # 0.1 10^3/uL (0.0-0.8); Eosinophils % 0.7 %; Hematocrit 47.5 % (36-47); Lymphocytes # 3.8 10^3/uL (0.8-4.8); Lymphocytes % 37.3 %; Mean Corpuscular HGB Conc 32.2 g/dL (30-55); Mean Corpuscular Hemoglobin 28.7 pg (27-33); Mean Corpuscular Volume 89.1 fl (85-98); Mean Platelet Volume 9.6 fL (7.4-10.4); Monocytes # 0.6 10^3/uL (0.2-0.9); Monocytes % 6.1 %; Neutrophils # 5.58 10^3/uL (1.8-7.7); Neutrophils % 54.8 %; Nucleated Red Blood Cells % 0 %; Platelet Count 343 10^3/cmm (157-399); Red Blood Count 5.33 10^6/uL (3.85-5.65); Red Cell Distribution Width 13.9 % (12.1-15.1); White Blood Count 10.17 10^3/uL (3.29-11.43)
[2024-05-15] MEDS: iohexol 350 mg/mL 500 mL Btl (per mL) IV (20:35)
[2024-05-15 20:44] LABS: Alanine Aminotransferase 71 U/L (0-33); Albumin Level 4.2 g/dL (3.5-5.2); Alkaline Phosphatase 106 U/L (35-105); Aspartate Amino Transferase 43 U/L (0-32); Blood Urea Nitrogen 31 mg/dL (8-23); Calcium 9.7 mg/dL (8.5-10.5); Carbon Dioxide 15 mmol/L (22-29); Chloride 100 mmol/L (98-107); Globulin 4.2 g/dL (1.3-4.6); Glucose 136 mg/dL (65-115); Lipase 45 U/L (13-60); Osmolality Calculated 283 mOsm/kg (285-295); Sodium 132 mmol/L (136-145); Total Bilirubin 1.1 mg/dL (0.15-1.2); Total Protein 8.4 g/dL (6.6-8.7)
[2024-05-15 20:45] LABS: Anion Gap 21.1 (5-19); Potassium 4.1 mmol/L (3.5-5.1)
[2024-05-15] MEDS: ondansetron 2 mg/ML SDV 2 mL 4 MG IVP (20:49)
[2024-05-15 21:15] VITALS: BP 153/72; PULSE 72; RESP 16; O2SAT 98
[2024-05-15 21:59] VITALS: BP 172/72; PULSE 68; RESP 16; O2SAT 98
== END 2024-05-15 22:00 | disposition home or self-care (01) ==
PROVIDERS: Emergency Provider Emergency Medicine; PCP Family Medicine
DX: K52.9 Noninfective gastroenteritis and colitis, unspecified (principal); Z79.82 Long term (current) use of aspirin; Z87.891 Personal history of nicotine dependence
CPT/HCPCS: 74177; 80053; 83690; 85025; 96374; 99285; J2405

== ENCOUNTER 2024-07-21 08:31 | Oncology outpatient (recurring) (ONCR) | payer MEDICARE, SELFPAY ==
--- NOTE | 2024-07-01 16:14 | PC.NURSE ---
This nurse called to remind patient about her appointment for tomorrow and this patient let this nurse know that her insurance is not wanting to cover her infusion. This patient wanted to postpone her infusion until she can get the insurance to cover this medication. This nurse let the patient know that once she gets it figured out to give us a call so that we can put her on our schedule. This patient acknowledged understanding and had no other questions.
[2024-07-21 09:06] VITALS: BP 156/78; PULSE 55; RESP 16; TEMP 36.4; O2SAT 99
[2024-07-21] MEDS: diphenhydrAMINE 25 mg Capsule PO (09:19)
[2024-07-21] MEDS: acetaminophen 325 mg Tablet 650 MG PO (09:20)
[2024-07-21] MEDS: SODIUM CHLORIDE 0.9% IV (10:04)
[2024-07-21] MEDS: INFLIXIMAB IV (10:04)
[2024-07-21 11:13] VITALS: BP 144/70; PULSE 59; RESP 16; TEMP 36.6; O2SAT 99
== END 2024-08-03 23:59 | disposition home or self-care (01) ==
LOC: ONCMED 08:31
PROVIDERS: PCP Family Medicine; Visit Provider Internal Medicine Gastroenterology
DX: K50.919 Crohn's disease, unspecified, with unspecified complications (principal); Z79.899 Other long term (current) drug therapy
CPT/HCPCS: 96365; A4222; J1745; J7050; J9999

== ENCOUNTER 2024-09-15 08:54 | Oncology outpatient (recurring) (ONCR) | payer MEDICARE, SELFPAY ==
[2024-09-15] MEDS: SODIUM CHLORIDE 0.9% IV (09:49)
[2024-09-15] MEDS: INFLIXIMAB IV (09:49)
[2024-09-15 10:15] VITALS: BP 115/69; PULSE 63; RESP 16; TEMP 36.1; O2SAT 97
[2024-09-15 11:30] VITALS: BP 133/78; PULSE 68; RESP 17; TEMP 36; O2SAT 100
== END 2024-10-03 23:59 | disposition home or self-care (01) ==
PROVIDERS: PCP Family Medicine; Visit Provider Internal Medicine Gastroenterology
DX: K50.919 Crohn's disease, unspecified, with unspecified complications (principal); Z79.620 Long term (current) use of immunosuppressive biologic
CPT/HCPCS: 96413; J1745; J7050

== ENCOUNTER 2024-11-23 09:05 | Oncology outpatient (recurring) (ONCR) | payer MEDICARE, SELFPAY ==
[2024-11-23 09:25] VITALS: BP 149/87; PULSE 61; RESP 18; TEMP 35.8; O2SAT 98
[2024-11-23 11:22] VITALS: BP 160/64; PULSE 56; RESP 16; TEMP 36.6; O2SAT 98
== END 2024-12-03 23:59 | disposition home or self-care (01) ==
PROVIDERS: PCP Family Medicine; Visit Provider Internal Medicine Gastroenterology
DX: K50.919 Crohn's disease, unspecified, with unspecified complications (principal); Z79.620 Long term (current) use of immunosuppressive biologic; Z79.899 Other long term (current) drug therapy
CPT/HCPCS: 96413; J1745; J7050

== ENCOUNTER 2025-01-18 09:13 | Oncology outpatient (recurring) (ONCR) | payer MEDICARE, SELFPAY ==
[2025-01-18 09:40] VITALS: BP 158/67; PULSE 52; RESP 16; TEMP 36.3; O2SAT 99
[2025-01-18 11:44] VITALS: BP 156/73; PULSE 54; RESP 16; TEMP 36.1; O2SAT 98
== END 2025-02-02 23:59 | disposition home or self-care (01) ==
PROVIDERS: PCP Family Medicine; Visit Provider Internal Medicine Gastroenterology
DX: K50.919 Crohn's disease, unspecified, with unspecified complications (principal); Z79.620 Long term (current) use of immunosuppressive biologic; Z79.899 Other long term (current) drug therapy
CPT/HCPCS: 96413; A4222; J1745; J7050

== ENCOUNTER 2025-03-15 08:51 | Oncology outpatient (recurring) (ONCR) | payer MEDICARE, SELFPAY ==
[2025-03-15 08:59] VITALS: BP 151/69; PULSE 71; TEMP 36
[2025-03-15 10:58] VITALS: BP 160/66; TEMP 36.1
== END 2025-04-04 23:59 | disposition home or self-care (01) ==
LOC: ONCMED 08:52
PROVIDERS: PCP Family Medicine; Visit Provider Internal Medicine Gastroenterology
DX: K50.919 Crohn's disease, unspecified, with unspecified complications (principal); Z79.620 Long term (current) use of immunosuppressive biologic; Z79.899 Other long term (current) drug therapy
CPT/HCPCS: 96413; A4222; J1745; J7050